=== PATIENT | male | born 1985 | race Caucasian/White ===

== ENCOUNTER 2024-01-30 08:07 | Outpatient (REF) | payer MEDICAID, SELFPAY | END 2024-01-30 08:08 | disposition home or self-care (01) | LOC: HO.HOSX 08:07 | DX: M25.532 Pain in left wrist (principal); G56.02 Carpal tunnel syndrome, left upper limb; G56.22 Lesion of ulnar nerve, left upper limb | CPT/HCPCS: 73110; 99212 ==

== ENCOUNTER 2024-01-30 08:25 | Outpatient (AMB) | payer MEDICAID, SELFPAY ==
--- NOTE | 2024-01-30 08:38 | A.OFFVIS_ITS ---
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 Patient reports his pain has been present for a while that has been recently getting worse. He states having an old wrist fracture. His pain is located in his wrist and radiates up to his shoulder. He has numbness and tinging in both of his hands as well as cold sensation in his left hand thumb and index finger. He had a nerve conduction study done last year. 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 but acutely worsening over the last few months. The patient states that he has constant numbness and tingling in the left small and ring fingers, as well as intermittent numbness and tingling in the other fingers of the left hand. The patient states that this tingling from the small finger occasionally radiates all the way up to the elbow. Patient also states that he has pain that radiates from his neck and shoulder all the way down his arm. Patient did previously have an EMG done that revealed mild carpal and cubital tunnel syndromes in the left. Patient would like to explore surgical intervention at this time. Of note, the patient states that he did have a surgery in his elbow when he was 9 years old that ?went wrong?, and he states that the bones healed incorrectly. No other acute complaints or concerns at this time. [facility] Surgical History (Updated 01/30/24 @ 08:46 by TAYLOR Meza) History of right nephrectomy Social History (Updated 01/30/24 @ 08:46 by TAYLOR Meza) Patient Tobacco Use Status: Never used Tobacco Current occupational status: employed Current occupation: construction, left hand dominant Review of Systems Const All systems reviewed & are unremarkable except as noted in HPI and below Physical Exam Vital Signs: BMI result Body Mass Index 28.9 Extrem Other: Neuro: Decreased sensation in the ulnar nerve distribution of the left hand. Normal sensation to all other digits in the left hand today. Normal sensation in the tips of all digits of the right hand today. No thenar or intrinsic wasting. Good APB muscle firing and good finger cross. Vascular: Capillary refill brisk. ROM: Patient can make a fist and extend all their digits. Skin: No lacerations or abrasions noted. General: No ecchymosis. No erythema or evidence of infection. Results Reviewed Results Reviewed: Patient presents copy of EMG and nerve conduction study on his 's phone EMG demonstrates mild carpal tunnel syndrome and mild cubital tunnel syndrome on the left Performed by Dr. Padron Assessment & Plan Assessment & Plan (1) Carpal tunnel syndrome, left: Code(s): G56.02 - Carpal tunnel syndrome, left upper limb Category: Medical (2) Cubital tunnel syndrome on left: Code(s): G56.22 - Lesion of ulnar nerve, left upper limb Category: Medical Plan 1. Carpal tunnel syndrome, left Symptoms intermittent, daily, worse at night 2. Cubital tunnel syndrome, left Symptoms constant, daily, worse at night I educated the patient about the condition. I discussed both operative and nonoperative treatment options. The patient would like to proceed with surgery. Patient is educated that due to the fact that he has dense numbness in the ulnar nerve distribution of the left hand, there is an increased risk that he does not get normal sensation back after surgery. Patient is informed that we would still perform surgery to alleviate his tingling, discomfort, and to prevent wasting of the intrinsic muscles of the left hand. The risks and benefits of operative treatment were discussed with the patient and the patient wishes to proceed with surgery. These risks include, but are not limited to, risk of damage to blood vessels, nerves, tendons, infection, recurrence, incomplete relief of preoperative symptoms, persistent pain, possible need for further surgery, and the risks associated with regional blocks and/or anesthesia. Plan is to take the patient to the operating room at some point in the next few weeks for the following procedures: 1. Left Cubital tunnel release under general anesthesia 2. Left Carpal tunnel release under general anesthesia All of the preoperative paperwork including the consent was discussed today. All of the patient's questions were answered in the clinic today. The patient understands that they will be in contact with our surgical endoscopist to discuss scheduling their procedure. Patient denies diabetes, blood thinners, asthma, heart issues, lung issues, kidney issues, or current smoking. Patient does take meloxicam p.r.n., it was advised he should discontinue use of this for 4-5 days prior to surgery. Patient was amenable to this plan Orders: Orders XR wrist LT w scaphoid Today M25.532 - Pain in left wrist Coding Level of Care Code New Pt Level 4 (87325) Diagnoses Carpal tunnel syndrome, left G56.02 Cubital tunnel syndrome on left G56.22
[2024-01-30 09:02] VITALS: BMI 28.9
== END 2024-01-30 09:32 | disposition home or self-care (01) ==
PROVIDERS: PCP Nurse Practitioner Family
DX: G56.02 Carpal tunnel syndrome, left upper limb (principal); G56.22 Lesion of ulnar nerve, left upper limb
CPT/HCPCS: 99204

== ENCOUNTER 2024-03-19 08:56 | Outpatient (AMB) | payer MEDICAID, SELFPAY ==
[2024-03-19 08:59] VITALS: BMI 28.9
--- NOTE | 2024-03-19 08:59 | A.OFFVIS_ITS ---
Vital Signs 03/19/24 08:59 Height 5 ft 9 in Weight 196 lb BMI 28.9 Intake Visit Reasons: Pre-Lt Cubital, CTR 03/28/24 Intake Note: Mehdi is a 38 year old, Ukranian speaking, left hand dominant male who presents today pre-operatively to discuss left cubital tunnel and carpal tunnel release scheduled for 03/28/[address] Boateng. Consents reviewed and signed in office today. Severity Of Illness Coordinator Name: Lucia [id number] Allergies Penicillins Allergy (Verified 03/19/24 09:08) rash HPI HPI Pre-Lt Cubital, CTR 03/28/24: Details: Mehdi is a 38 year old left hand dominant Slovak speaking man who presents to discuss his left carpal & cubital tunnel syndrome. He complains of numbness in all digits of his left hand for several years now. Symptoms constant in his small finger, and intermittent, but daily, in his thumb, index, and middle fingers. He denies any locking or catching. He works in construction. [facility] Surgical History History of right nephrectomy Social History (Updated 01/30/24 @ 08:46 by Libia Marquez [facility]) Patient Tobacco Use Status: Never used Tobacco Current occupational status: employed Current occupation: construction, left hand dominant Review of Systems Const All systems reviewed & are unremarkable except as noted in HPI and below Physical Exam Vital Signs: BMI result Body Mass Index 28.9 Const General: cooperative, healthy appearing and no acute distress Orientation/consciousness: patient oriented x3 HEENT Head: Yes normocephalic and Yes atraumatic Eyes EOM: EOMs intact bilaterally Resp Effort & Inspection: normal respiratory effort and able to speak in complete sentences Cardio Jugular venous distension: no JVD Skin General skin exam: turgor normal Rashes: no rashes Neuro General: patient oriented x3 Extrem Other: Evaluation of Left Upper Extremity: The patient is alert, oriented, and in no acute distress Neuro: Normal sensation in the median nerve distribution. Dense numbness in the ulnar nerve distribution No thenar or intrinsic wasting Good APB muscle belly firing and good finger cross Vascular: Cap refill brisk ROM: He can make a fist and extend all his digits No locking or catching Skin: No lacerations or abrasions. General: No Ecchymosis. No Erythema or evidence of infection. Nerve Conduction Study: 1. Mild left median neuropathy across the carpal tunnel 2. Mild left ulnar neuropathy across the cubital tunnel Performed by Dr. Padron 06/13/23 *Please see scanned report for more details* Psych Appearance: grossly normal Affect: normal affect Attitude: cooperative Assessment & Plan Assessment & Plan (1) Cubital tunnel syndrome on left: Code(s): G56.22 - Lesion of ulnar nerve, left upper limb Category: Medical (2) Carpal tunnel syndrome, left: Code(s): G56.02 - Carpal tunnel syndrome, left upper limb Category: Medical Plan Assessment & Plan: 1. Left cubital tunnel syndrome, mild With dense numbness 2. Left carpal tunnel syndrome, mild Symptoms intermittent, but daily, worse at night I educated him about this condition I discussed operative and non-operative treatment options The patient would like to proceed with surgery The risks and benefits of operative treatment were discussed with the patient and the patient wishes to proceed with surgery. These risks include, but are not limited to risk of damage to blood vessels, nerves, tendons, infection, recurrence, incomplete relief of preoperative symptoms, persistent pain, possible need for further surgery and the risks associated with regional blocks and anesthesia. The plan is to take the patient to the operating room sometime on 03/28/24 for the following procedures: 1. Left cubital tunnel release, under general 2. Left carpal tunnel release, under general All of the preoperative paperwork including the consent was reviewed today. All the patient's questions were answered. The patient understands that they will be contacted by our cloth piecer soon to schedule this procedure He denies Diabetes, blood thinners, asthma, heart, lung issues He has a Hx of a right nephrectomy Scribed for Eusebia Boateng MD by Mehul Dial director of medical services, on 03/19/24 at 9:25 AM, EST. Coding Level of Care Code Est Pt Level 4 (48778) Diagnoses Cubital tunnel syndrome on left G56. Carpal tunnel syndrome, left G56.02
== END 2024-03-19 09:51 | disposition home or self-care (01) ==
PROVIDERS: PCP Nurse Practitioner Family; Visit Provider Orthopaedic Surgery
DX: G56.22 Lesion of ulnar nerve, left upper limb (principal); G56.02 Carpal tunnel syndrome, left upper limb
CPT/HCPCS: 99214

== ENCOUNTER → 2024-03-19 08:56 | Outpatient (BNVA) | payer MEDICAID, SELFPAY | PROVIDERS: PCP Nurse Practitioner Family; Visit Provider Orthopaedic Surgery | DX: G56.22 Lesion of ulnar nerve, left upper limb (principal); G56.02 Carpal tunnel syndrome, left upper limb | CPT/HCPCS: 99212 ==

== ENCOUNTER 2024-03-28 07:04 | Day surgery (SDC) | payer MEDICAID, SELFPAY ==
[2024-03-26 08:33] VITALS: BMI 28.9
[2024-03-28] VITALS (9 sets, daily range): BP systolic 110–126; BP diastolic 57–73; PULSE 79–88; RESP 16; TEMP 36.2–36.3; O2SAT 94–98; BMI 25.7
--- NOTE | 2024-03-28 07:52 | P.CONAN_ITS ---
HPI - Anesthesia Eval Consult details Narrative: cubital and carpal tunnel release PMFSH Active Problems Active Problems: All Active Problems Cubital tunnel syndrome on left (Acute) Carpal tunnel syndrome, left (Acute) Family History Family history of problems with anesthesia: No Surgical History Surgical History History of right nephrectomy History of Problems with Anesthesia: No Social History Social History Are you a primary personal care service provider to a significant other at home: No Do you presently have visiting nurse or other home services: No Patient Tobacco Use Status: Never used Tobacco Use of substances other than those prescribed or required for medical reasons: No Have you been hit, kicked, punched, or otherwise hurt by someone within the past year? If so, by whom?: No Are you DNR?: No Advance Directives: No Advance Directives Information Provided: Yes Recently lost weight without trying: No Nutrition Risks: No Nutritional Risk Poor oral hygiene: No Current occupational status: employed Current occupation: construction, left hand dominant Meds Allergies Allergy/AdvReac Type Severity Reaction Status Date / Time Penicillins Allergy rash Verified 03/19/24 09:08 Home Medications ?Medication ?Instructions ?Recorded ?Confirmed ?Last Taken ?Type amlodipine 5 mg-valsartan 160 mg 1 tab PO DAILY 01/30/24 Unknown History tablet omeprazole 20 mg capsule,delayed 20 mg PO DAILY 01/30/24 Unknown History release amlodipine 5 mg tablet 5 mg PO BID 03/19/24 Unknown History gabapentin 300 mg capsule 300 mg PO BID 03/27/24 03/27/24 Unknown History ramipril 10 mg capsule 10 mg PO DAILY 03/27/24 Unknown History Exam Height,Weight and Vital Signs: Height 5 ft 9 in Weight 78.925 kg Airway Mallampati Class: II TM Dist: >3cm Neck ROM: Full Heart: rrr Lungs: cta Assessment and Plan Assessment Anesthesia Assessment: Anesthesia Plan Discussed Final Anesthetic Review Family History of Problems with Anesthesia: No History of Problems with Anesthesia: No NPO: Yes ASA Class: III Final Preanesthetic Review: No Changes in Pt Med Stat, Meds/Allgs Chart Reviewed, Consent Obtained/Reviewed and Anes Risks/Benef Reviewed Patient Risk: Intermediate Procedure Risk: Intermediate Anesthetic Plan Anesthetic Plan: GA Disposition: Standard PACU
--- NOTE | 2024-03-28 07:54 | HO.ANESPROP2 ---
HPI - Anesthesia Eval Consult details Narrative: carpal and cubita tunnel PMFSH Active Problems Active Problems: All Active Problems (Updated 01/30/24 @ 09:38 by LON Alaniz) Cubital tunnel syndrome on left (Acute) Carpal tunnel syndrome, left (Acute) Family History Family history of problems with anesthesia: No Surgical History Surgical History History of right nephrectomy History of Problems with Anesthesia: No Social History Social History Are you a primary healthcare account manager to a significant other at home: No Do you presently have visiting nurse or other home services: No Patient Tobacco Use Status: Never used Tobacco Use of substances other than those prescribed or required for medical reasons: No Have you been hit, kicked, punched, or otherwise hurt by someone within the past year? If so, by whom?: No Are you DNR?: No Advance Directives: No Advance Directives Information Provided: Yes Recently lost weight without trying: No Nutrition Risks: No Nutritional Risk Poor oral hygiene: No Current occupational status: employed Current occupation: construction, left hand dominant Meds Allergies Allergy/AdvReac Type Severity Reaction Status Date / Time Penicillins Allergy rash Verified 03/19/24 09:08 Active Medications: Current Medications Fentanyl (Fentanyl Citrate/Pf 100 Mcg/2 Ml Vial) 25 mcg IVPUSH Q5M PRN PRN Reason: Pain, Moderate to Severe (Pain Scale 4-10) Stop: 03/28/24 13:53 Naloxone HCl (Naloxone Hcl 0.4 Mg/Ml Vial) 0.04 mg IVPUSH Q5M PRN PRN Reason: Excessive sedation or RR < 8 Ondansetron HCl (Ondansetron Hcl 4 Mg/2 Ml Vial) 4 mg IVPUSH ONCE PRN PRN Reason: Nausea and Vomiting Stop: 03/28/24 13:53 Home Medications ?Medication ?Instructions ?Recorded ?Confirmed ?Last Taken ?Type amlodipine 5 mg-valsartan 160 mg 1 tab PO DAILY 01/30/24 Unknown History tablet omeprazole 20 mg capsule,delayed 20 mg PO DAILY 01/30/24 Unknown History release amlodipine 5 mg tablet 5 mg PO BID 03/19/24 Unknown History gabapentin 300 mg capsule 300 mg PO BID 03/27/24 03/27/24 Unknown History ramipril 10 mg capsule 10 mg PO DAILY 03/27/24 Unknown History Exam Height,Weight and Vital Signs: Height 5 ft 9 in Weight 78.925 kg Airway Mallampati Class: II TM Dist: >3cm Neck ROM: Full Heart: rrr Lungs: cta Assessment and Plan Assessment Anesthesia Assessment: Anesthesia Plan Discussed Final Anesthetic Review Family History of Problems with Anesthesia: No History of Problems with Anesthesia: No NPO: Yes ASA Class: III Final Preanesthetic Review: No Changes in Pt Med Stat, Meds/Allgs Chart Reviewed, Consent Obtained/Reviewed and Anes Risks/Benef Reviewed Patient Risk: Intermediate Procedure Risk: Intermediate Anesthetic Plan Anesthetic Plan: GA Disposition: Standard PACU
--- NOTE | 2024-03-28 08:05 | P.OP_ITS ---
Operative Note Operative Note Date of Service: 03/28/24 Narrative: Operative Note Narrative: Preop diagnosis: 1. Left Cubital tunnel syndrome 2. Left carpal tunnel syndrome Postop diagnosis: Same Procedure: 1. Left Cubital Tunnel Release 2. Left carpal tunnel release Surgeon: Eusebia Boateng MD Small Parts Shaper Operator: Ramu FORREST Anesthesia: General Anesthesia Findings: Anconeus epitrochlearis directly over the ulnar nerve at the cubital tunnel Implants: none Tourniquet time: 49 minutes EBL: 5.0 ml Specimen: none Drains: None Complications: None Disposition: Brought to the recovery room in stable condition Plan: Follow-up in 10-14 days for wound check, and suture removal Indications: The patient is 38 years old with left cubital tunnel syndrome and left carpal tunnel syndrome . The risks and benefits of operative treatment, including but not limited to risk of damage to blood vessels, nerves, tendons, infection, recurrence, persistent pain or numbness, incomplete resolution of preoperative symptoms, or need for further surgery were discussed with the patient and they wished to proceed with surgery. Procedure: Once consent was obtained patient was brought back to the operating suite and placed in the operating table in a supine position. Perioperative antibiotics and anesthesia was administered by the anesthesia team. The limb was prepped and draped in a standard surgical fashion, and a sterile tourniquet applied to the proximal aspect of the left upper extremity. The limb was elevated exsanguinated with Esmarch bandage and the tourniquet inflated to 250 mm of mercury for a total tourniquet time of 49 minutes. Once assured that we had a good block, a 2.0 cm longitudinal incision was made centered over the left carpal tunnel. The incision was made through the skin to the subcutaneous tissues using a #15 blade. Dissection was made down to the level of the transverse carpal ligament with care being taken to protect the palmar cutaneous nerve. Once the transverse carpal ligament was clearly visuali zed, a longitudinal incision was made in the transverse carpal ligament 1st using a #15 blade, then using tenotomy scissors under direct visualization. Care was taken to look for and protect the motor branch of the median nerve when seen in this area. Once satisfied with our carpal tunnel release the wound was irrigated with normal saline. Skin edges were reapproximated with some 4-0 Prolene suture material, and the wound was infiltrated with some 1% lidocaine with epinephrine for postop pain control. A 6 cm gently curved but longitudinally oriented incision was made centered over the cubital tunnel of the left upper extremity. Incision was made through the skin to the subcutaneous tissues using a # 15 Blade. I then dissected down to the level of the medial epicondyle and the cubital tunnel using tenotomy scissors. Care was taken to protect the medial antebrachial cutaneous nerve. The ulnar nerve was identified just posterior to the medial intermuscular septum. The patient also had a healthy sized anconeus epitrochlearis sitting right over the ulnar nerve as it passed through the cubital tunnel. The ulnar nerve was released in a proximal to distal direction using tenotomy in iris scissors while directly visualizing and protecting the ulnar nerve. The anconeus epitrochlearis was also split, releasing it over the cubital tunnel. Mild Thickening and fibrosis was appreciated about the ulnar nerve as it passed through the cubital tunnel. The ulnar nerve was assessed as I passed the elbow through full flexion and extension and was found to remain stable within its g roove. At this point the tourniquet was deflated and hemostasis obtained with a brief period of local pressure and bipolar electrocautery. The wound was copiously irrigated with normal saline. The subcutaneous layer was closed with 4-0 Vicryl suture, and the skin edges were reapproximated with a running 4-0 Monocryl subcuticular closure. Steri-Strips and Mastisol were applied.. The wounds were infiltrated with some 1% lidocaine with epinephrine for postop pain control and sterile dressings and a posterior splint was applied. The patient appears to have tolerated the procedure well and with no complications. All digits were well vascularized at the conclusion of the case.
--- NOTE | 2024-03-28 08:11 | MHC.SHP ---
Pre-Procedural Eval Section A - 24 Hr Update-Section A only Date of Service: 03/28/24 The patient is an INPATIENT: No Changes since office visit: No Cold of Flu in the past 2 weeks, No New Medical Problems, No Changes in Medication and No Patient answered all questions The patient has been examined within 24 hours of the surgical procedure. The History & Physical has been completed within 30 days and I have reviewed it.: Yes Section B - Complete if H&P > 30 days Chief Complaint: Carpal tunnel syndrome, left cubital tunnel Allergies: Allergies Allergy/AdvReac Type Severity Reaction Status Date / Time Penicillins Allergy rash Verified 03/19/24 09:08 Plan I have reviewed the history and physical and performed a pertinent physical examination on my patient. No changes have occurred unless specified. Time Spent With Patient Time: Total time managing care of this patient today ____ minutes.
[2024-03-28] MEDS: Lactated Ringers 1,000 ML 80 ML IVCONT (08:26)
[2024-03-28] MEDS: ondansetron HCL 4 MG/2 ML VIAL IVPUSH (13:02)
== END 2024-03-28 14:01 | disposition home or self-care (01) ==
PROVIDERS: PCP Nurse Practitioner Family; Visit Provider Orthopaedic Surgery
PROC: (CPT 64718; principal; 2024-03-28 09:30)
PROC: (CPT 64721; 2024-03-28 09:30)
DX: G56.02 Carpal tunnel syndrome, left upper limb (principal); G56.22 Lesion of ulnar nerve, left upper limb; R20.0 Anesthesia of skin; M25.822 Other specified joint disorders, left elbow; Z90.5 Acquired absence of kidney; Z79.899 Other long term (current) drug therapy; Z88.0 Allergy status to penicillin
CPT/HCPCS: 64721; 64718; J0131; J0690; J1100; J2003; J2004; J2371; J2405; J2704; J3010

== ENCOUNTER → 2024-03-28 07:04 | Outpatient (BNV) | payer MEDICAID, SELFPAY | PROVIDERS: PCP Nurse Practitioner Family; Visit Provider Orthopaedic Surgery | DX: G56.02 Carpal tunnel syndrome, left upper limb (principal); G56.22 Lesion of ulnar nerve, left upper limb | CPT/HCPCS: 64718; 64721 ==

== ENCOUNTER 2024-04-09 09:16 | Outpatient (AMB) | payer MEDICAID, SELFPAY ==
--- NOTE | 2024-04-09 09:37 | MHC.OFFVIS ---
Intake Visit Reasons: PO Lt Cubital, Lt CTR 03/28/24 Intake Note: Mehdi 38 yr old [place] speaker male present today for his PO visit for his left Cubital and CTR 03/28/[address] Boateng. STates symptoms have resolved just has cold feeling in his hand. Sutures removed and steri strips applied. Career Transition Specialist Required: Yes Career Transition Specialist Services: Career Transition Specialist Present ([id number] Madhu) Career Transition Specialist Name: Aton Allergies Penicillins Allergy (Verified 04/09/24 09:51) rash HPI HPI PO Lt Cubital, Lt CTR 03/28/24: Details: The patient is a 38-year-old left-hand dominant [place] speaking man who is status post left carpal tunnel release and left cubital tunnel release with wy on 03/28/2024. He says he is doing very well and no longer has any numbness and tingling in his left hand. He does complain of numbness and tingling in the right hand that bothers him more now. The numbness is mostly in his right small and ring fingers. 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 He is seen today with his [facility] Surgical History History of right nephrectomy Social History Are you a primary manager medicare marketing to a significant other at home: No Do you presently have visiting nurse or other home services: No Patient Tobacco Use Status: Never used Tobacco Current occupational status: employed Current occupation: construction, left hand dominant Physical Exam Extrem Other: The patient was alert oriented and in no acute distress. His surgical incisions are healing well with no erythema drainage or evidence of infection. Sutures were removed and Steri-Strips applied. Median ulnar radial nerve motor and sensory were all grossly intact today. Normal sensation to the tips of all digits including the small and ring fingers, which is an improvement. He can make a fist and extend all of his digits. He can actively flex and extend it his elbow. He does demonstrate that he is now having numbness and tingling in his right small and ring fingers. This is actually more bothersome than the left side now, and he would like to be seen for the right side. Assessment & Plan Assessment & Plan (1) Numbness and tingling in right hand: Code(s): R20.0 - Anesthesia of skin; R20.2 - Paresthesia of skin Category: Medical Plan Assessment & Plan: 1. Left cubital tunnel syndrome, status post cubital tunnel release Date of surgery 03/28/2024 Preoperatively: With dense numbness Now with normal sensation 2. Left carpal tunnel syndrome, status post carpal tunnel release Date of surgery 03/28/2024 Preoperatively: Symptoms intermittent, but daily, worse at night Now with normal sensation I educated the patient about the postoperative course He appears to be doing very well postoperatively and is very pleased with the improvement in his symptoms. I talked to him about activity modification. We are giving him a note returning him to work in 2 weeks. He will be returning to work on light duty with a 10 lb weight limit which will be in place for 4 weeks. Six weeks from now he can return to full duty. 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 3. Right hand numbness and tingling Mostly in the right small and ring fingers I am ordering a nerve conduction study. He will follow up with me in 3 months to review this study, as we want to give him some time to allow the left side to heal. Coding Level of Care Code Est Pt Level 3 (25868) Diagnoses Numbness and tingling in right hand R20.0; R20.2
== END 2024-04-09 10:09 | disposition home or self-care (01) ==
PROVIDERS: PCP Nurse Practitioner Family; Visit Provider Orthopaedic Surgery
DX: G56.22 Lesion of ulnar nerve, left upper limb (principal); G56.02 Carpal tunnel syndrome, left upper limb; R20.0 Anesthesia of skin; R20.2 Paresthesia of skin
CPT/HCPCS: 99024

== ENCOUNTER → 2024-04-09 09:16 | Outpatient (BNVA) | payer MEDICAID, SELFPAY | PROVIDERS: PCP Nurse Practitioner Family; Visit Provider Orthopaedic Surgery | DX: G56.22 Lesion of ulnar nerve, left upper limb (principal); G56.02 Carpal tunnel syndrome, left upper limb; R20.0 Anesthesia of skin; R20.2 Paresthesia of skin; Z48.02 Encounter for removal of sutures | CPT/HCPCS: 99212 ==

== ENCOUNTER 2024-05-09 14:04 | Outpatient (REF) | payer MEDICAID, SELFPAY ==
--- NOTE | 2024-05-09 14:08 | EMG_ITS ---
Chief complaint: At least 2 years of tingling on right 4th and 5th digits. History of left CTR and cubital tunnel surgery last March 2024. They said he had an EMG done but results are not available for my review. Reason for referral: Evaluate for ulnar neuropathy Referred by: Dr. Boateng Procedure done: Left upper extremity NCS/EMG Precautions and/or limitations: None Bengali speaking, translation services use. The limb temperature was monitored continuously and remained between 32-36 degrees C during the performance of the NCS. Ulnar motor NCS was performed with moderate elbow flexion between 70-90 degrees, with across-elbow distance of 10 cm. Nerve Conduction Studies Anti Sensory Summary Table ?Stim Site NR Onset (ms) Norm Onset (ms) Peak (ms) Norm Peak (ms) O-P Amp (?V) Norm O-P Amp Site1 Site2 Delta-0 (ms) Dist (cm) Ramirez (m/s) Norm Ramirez (m/s) Right Median Anti Sensory (2nd Digit) Wrist ? 2.7 3.3 <3.6 28.3 >10 Wrist 2nd Digit 2.7 14.0 52 Right Radial Anti Sensory (Thumb) Forearm ? 1.5 2.1 <3.1 17.1 Forearm Thumb 1.5 0.0 Right Ulnar Anti Sensory (5th Digit) Wrist ? 2.3 3.0 <3.7 22.0 >15.0 Wrist 5th Digit 2.3 14.0 61 Motor Summary Table ?Stim Site NR Onset (ms) Norm Onset (ms) O-P Amp (mV) Norm O-P Amp iAmp (mV) Amp (1st) (%) Site1 Site2 Delta-0 (ms) Dist (cm) Ramirez (m/s) Norm Ramirez (m/s) Right Median Motor (Abd Poll Brev) Wrist ? 3.4 <3.9 11.8 >4.5 13.4 100.0 Elbow Wrist 3.9 21.5 55 >45 Elbow ? 7.3 10.3 11.7 87.3 Right Ulnar Motor (Abd Dig Minimi) Wrist ? 3.0 <3.0 11.5 >5 13.8 100.0 B Elbow Wrist 3.4 21.0 62 >45 B Elbow ? 6.4 11.3 13.8 98.3 A Elbow B Elbow 1.0 10.0 100 >45 A Elbow ? 7.4 11.1 13.6 96.5 EMG ?Side Muscle Nerve Root Ins Act Fibs Psw Amp Dur Poly Recrt Int Pat Comment Right 1stDorInt Ulnar C8-T1 Nml Nml Nml Nml Nml 0 Nml Complete Right Biceps Musculocut C5-6 Nml Nml Nml Nml Nml 0 Nml Complete Right Triceps Radial C6-7-8 Nml Nml Nml Nml Nml 0 Nml Complete Right Deltoid Axillary C5-6 Nml Nml Nml Nml Nml 0 Nml Complete Right FlexCarpiUln Ulnar C8,T1 Nml Nml Nml Nml Nml 0 Nml Complete FINDINGS: All motor and sensory nerves tested showed normal latencies, amplitudes and conduction velocities. Concentric needle EMG was performed in selected muscles of the left upper extremity. Study did not reveal signs of electric abnormalities as shown in the table above. IMPRESSION: 1. This is a normal study. 2. There is no electrodiagnostic evidence for median neuropathy, ulnar neuropathy, brachial plexopathy, or cervical radiculopathy. CLINICAL COMMENT: Normal test today. Consider repeating test in 6 months if symptoms persist. Thank you for your kind referral. Candy Rousseau MD, GALILEO Board Certified, [place] Board of Physical Medicine and Rehabilitation (ABPMR) Board Certified, [place] Board of Electrodiagnostic Medicine (ABEM) CODIN [id number] [facility]
== END 2024-05-09 14:05 | disposition home or self-care (01) ==
LOC: HO.NEURO 14:04
PROVIDERS: PCP Nurse Practitioner Family; Visit Provider Orthopaedic Surgery
DX: R20.0 Anesthesia of skin (principal); R20.2 Paresthesia of skin
CPT/HCPCS: 95886; 95909

== ENCOUNTER → 2024-05-09 14:08 | Outpatient (BNV) | payer MEDICAID, SELFPAY | PROVIDERS: PCP Nurse Practitioner Family; Visit Provider Physical Medicine & Rehabilitation | DX: R20.0 Anesthesia of skin (principal); R20.2 Paresthesia of skin | CPT/HCPCS: 95886; 95909 ==

== ENCOUNTER 2024-07-10 11:23 | Outpatient (AMB) | payer MEDICAID, SELFPAY ==
--- NOTE | 2024-07-10 11:39 | MHC.OFFVIS ---
Intake Visit Reasons: New prob- Right UE Numbness Intake Note: Mehdi is a 38 year old male who presents today for an EMG review of right UE. Patient was last seen with Dr. Boateng and an EMG was ordered. Patient reports that he continues to have pain in his wrist area. Food Safety Director Name: anca [id number] Allergies Penicillins Allergy (Verified 07/10/24 11:40) rash HPI HPI New prob- Right UE Numbness: Details: Mehdi is a 38 year old male who presents today for an EMG review of right UE. Patient was last seen with Dr. Boateng and an EMG was ordered. Patient reports that he continues to have pain in his wrist area. [facility] Surgical History History of right nephrectomy Social History Are you a primary career coordinator to a significant other at home: No Do you presently have visiting nurse or other home services: No Patient Tobacco Use Status: Never used Tobacco Current occupational status: employed Current occupation: construction, left hand dominant Physical Exam Extrem Other: The patient was alert oriented and in no acute distress. His surgical incisions are well healed with no erythema drainage or evidence of infection. Median ulnar radial nerve motor and sensory were all grossly intact today. Normal sensation to the tips of all digits including the small and ring fingers, which is an improvement. Normal sensation of the tips of all digits of the right hand in the office today He can make a fist and extend all of his digits. He can actively flex and extend it his elbow. Results Reviewed Results Reviewed: IMPRESSION: 1. This is a normal study. 2. There is no electrodiagnostic evidence for median neuropathy, ulnar neuropathy, brachial plexopathy, or cervical radiculopathy. CLINICAL COMMENT: Normal test today. Consider repeating test in 6 months if symptoms persist. Thank you for your kind referral. Candy Rousseau MD, GALILEO Board Certified, [place] Board Assessment & Plan Assessment & Plan (1) Stiffness of left hand joint: Code(s): M25.642 - Stiffness of left hand, not elsewhere classified Category: Medical (2) Numbness and tingling in right hand: Code(s): R20.0 - Anesthesia of skin; R20.2 - Paresthesia of skin Category: Medical Plan 1. Numbness and tingling of right hand numb 2. Stiffness of left hand Patient is educated about these conditions Patient is educated about the typical recovery course At this time, patient was informed that there is no surgery indicated as he has a negative EMG and nerve conduction study Patient is educated that if he continues to have numbness and tingling 6 months for now, he should call us for repeat assessment and potential repeat EMG Patient was amenable to this plan Patient was also referred to occupational therapy for range of motion and strengthening of the left hand Patient was amenable to this plan Follow-up as needed with any acute concerns Orders: Orders OT Evaluation and Treatment Today M25.642 - Stiffness of left hand, not elsewhere classified Coding Level of Care Code Est Pt Level 3 (11142) Diagnoses Stiffness of left hand joint M25.642 Numbness and tingling in right hand R20.0; R20.2
== END 2024-07-10 11:51 | disposition home or self-care (01) ==
PROVIDERS: PCP Nurse Practitioner Family
DX: M25.642 Stiffness of left hand, not elsewhere classified (principal); R20.0 Anesthesia of skin; R20.2 Paresthesia of skin
CPT/HCPCS: 99213

== ENCOUNTER → 2024-07-10 11:23 | Outpatient (BNVA) | payer MEDICAID, SELFPAY | PROVIDERS: PCP Nurse Practitioner Family; Visit Provider Orthopaedic Surgery | DX: M25.642 Stiffness of left hand, not elsewhere classified (principal); R20.0 Anesthesia of skin; R20.2 Paresthesia of skin | CPT/HCPCS: 99212 ==

== ENCOUNTER 2024-07-18 08:21 | Outpatient (REF) | payer MEDICAID, SELFPAY ==
--- NOTE | ~2024-07-18 | XR_ITS ---
EXAMINATION: XR KNEE, LEFT CLINICAL INFORMATION: M25.562 - Pain in left knee COMPARISON: None available. TECHNIQUE: Three views of the left knee. FINDINGS: No acute cortical disruption or malalignment. No lytic or blastic lesions. No suprapatellar bursa joint effusion. There is preservation of normal joint space. XR/XR knee LT 3V IMPRESSION: Normal left knee. Electronically signed by: Derick Shearer MD 07/19/2024 08:13 AM EDT
--- OUTSIDE RECORDS SUMMARY | 2024-07-19 08:32 | XMS_ITS | Encounter Summary ---
Author Organization [facility] [address] Care Team Providers Care Lockstitch Sleeve Setter Name Role Phone Jaleel, Tylor HAY Primary Care Provider [phone]- [phone] Encounter Details Date Type Department Care Team (Late st Contact Info) Description 05/27/[address] [facility] - Main Lab [address] [facility] [place] [address] Jose Angel Frazier PA [address] [place] [address] Calculus of kidney; Urinary tract [...] Urine No growth 05/28/2024 11:14 AM EST [facility] Urine Urine specimen obtained by clean catch procedure / Unknown 05/27/2024 11:45 AM EST 05/27/2024 1:16 PM EST us Jose Angel [facility] MICROBIOLOGY - GENERAL ORD ERABLES Final Result [facility] [address] [place] [address], documented in this encounter Visit Diagnoses Diagnosis Calculus of kidney Urinary tract infection, site not specified documented in this encounter Care Teams Lockstitch Sleeve Setter Relationship Specialty Start Date End Date Jacek Marmolejo NP [address] [place] [address] PCP - General Nurse Practitioner 05/27/24 documented as of this encounter
--- OUTSIDE RECORDS SUMMARY | 2024-07-19 08:32 | XMS_ITS | Encounter Summary ---
Author Organization [facility] Address [address] [place] [address] Care Team Providers Care Clothes Marker Name Role Phone Jacek Marmolejo DIRECTOR HRIS Primary Care Provider [phone] [phone] Reason for Visit * Reason Comments Blood Pressure Check Encounter Details Date Type Department Care Team ([facility] st Contact Info) Description 07/17/2024 1:00 PM EDT Office Visit [address] [phone] Kerry Martinez LPN [phone] [place] [address] BP check (Primary Dx) Social History Tobacco Use Types Packs/Day Years [...] Index - - documented in this encounter Patient Instructions * Attachments The following attachments cannot be sent through Care Everywhere. * Low Sodium Diet (German) * Diet: DASH (German) documented in this encounter Progress Notes * Kerry Martinez LPN - 07/17/2024 1:13 PM EDT Mehdi Lechuga is a 38 year old male here for initial Self-Monitoring of Blood Pressure (SMBP) visit. Patient Referred by: HARRIET Antoine Subjective: The patient reports: Hx of HTN for 5 year(s). Family history of HTN: Mother Hypertension ROS: taking medications as instructed, no medication side effects noted, no TIAs, no swelling of ankles he has the following risk factors for hypertension: family history Diet: Adherence to low salt/DASH diet: adherent most of the time Adds salt to your food? no Eats a lot of canned/pre-packaged food products? no Home BP monitoring: Patient reports checking blood pressure at home 1 times per day Home BP readings ranges: 135/90, 130/85 Medications (medications to be reconciled at time of visit): Anti-Hypertensive Medications (medications to be reconciled at time of visit): Amlodipine-Valsartan 5-320 mg QD Patient reported medication adherence: no misses Patient reports the following medication side effects: none Did you take your medication today? yes - Additional OTC medications or supplements: NONE, Corvalment prescribed in [facility] Objective: Vitals: Last 3 BP Readings: Date: BP: 07/17/2024 124/86 03/19/2024 120/80 02/19/2024 145/89 Wt Readings from Last 3 Encounters: 03/19/24 197 lb 12.8 oz (89.7 kg) 01/16/24 196 lb (88.9 kg) 04/04/23 191 lb (86.6 kg) Lab Results Component Value Date NA 138 03/19/2024 K 3.9 03/19/2024 BUN 26 (H) 03/19/2024 BUNCREAT 21 03/19/2024 CREATININE 1.25 03/19/2024 EGFR 75 03/19/2024 Physical Exam: Neuro:alert, oriented x3, affect appropriate Assessment: Diagnosis: There are no diagnoses linked to this encounter. Primary Reason for RN visit: Self-Monitoring of Blood Pressure Degree of blood pressure control: improved. Patient has verbally agreed to engage in Self-Monitoring of Blood Pressure: Yes Plan Medication changes recommended by PCP: Any other care plan recommendations: no BP Goal: 130/80 Frequency of blood pressure self-monitoring: Frequency of blood pressure self- monitorin Daily Will reach out to PCP for the following referral(s): None Follow Up: No follow-ups on file. Referrals: No diagnosis found. Goals: Goals Addressed This Visit's Progress Blood Pressure < 130/80 124/86 Hypertension: Decrease sodium intake SMBP Inventory Management Reviewed Loaner Agreement Form/Take-Home Sheet with patient; patient signed form; Nurse placed formin binder. The following items were given to the patient: BP Cuff [employer] BP Carrying Case Batteries Power Cord Device ID #: [id number] Education: Educated patient that proper conditions for taking blood pressure include sitting in a chair with feet flat on the ground for a few minutes prior to blood pressure measurement, arm resting on flat surface at heart level, elimination of background noises, no talking, empty bladder, proper environmental temperature. Factors to also consider that may affect BP include, smoking, caffeine, alcohol use, pain, and exercise. Completed blood pressure cuff fitting, blood pressure monitor education, and teachback with patientto ensure understanding. Patient MyChart Status: Active Reviewed patient plan and instructions for documenting home blood pressures via monitor memory. Patient is in for SMBP initial visit. Patient is in agreement to the program. Patient educated on monitor use and demonstrates appropriate use. Pt has been taking BP medication as prescribed. Pt is nonadherent to a low sodium diet. This nurse has educated pt on the effects sodium in the body, Increased salt consumption may provoke water retention, thus leading to increased BP. Pt educated on wayshe can begin to decrease daily sodium consumption. Pt has been provided with DASH/low sodium diet to read at home. Pt has been educated on s/sx of HTN and when to seek immediate medical attention. Ptvebalized understating. Pt has been experiencing tingling in chest takes Corvalment from [place] when having chest tingling which helps, has been going on for some time, information reported to PCP. Pt has been scheduled for SMBP f/u. documented in this encounter Miscellaneous Notes * Patient Instructions - Kerry Martinez LPN - 07/17/2024 1:39 PM EDT If you are not able to keep your appointment please call 24-48 hours before your appointment to cancel or reschedule. documented in this encounter Plan of Treatment Upcoming Encounters Date Type Department Care Team (Late st Contact Info) Description 08/06/2024 9:20 AM EDT Office Visit [facility] [address] [place] [address] Kerry Martinez LPN [phone] [place] [address] documented as of this encounter Goals Goal Patient Goal Type Associated Problems Recent Progress Patient-Stated? Author Blood Pressure < 130/80 Blood Pressure 124/86( 025 1:33 PM EDT) No Kerry Martinez LPN Hypertension: Decrease sodium intake General No Kerry Martinez LPN documented as of this encounter Visit Diagnoses Diagnosis BP check- Primary Screening for hypertension documented in this encounter Additional Health Concerns Assessment Noted Time PHQ-9 Depression Total Score: 0 05/23/19 25 10:12 AM PST documented as of this encounter Care Teams Clothes Marker Relationship Specialty Start Date End Date Jacek Marmolejo FNP [address] [place] [address] PCP - General Family Medicine, SHEET SORTER 04/03/23 documented as of this encounter
--- OUTSIDE RECORDS SUMMARY | 2024-07-19 08:32 | XMS_ITS | Encounter Summary ---
Author Organization [facility] [place] [address] Care Team Providers Care Import/Export Agent Name Role Phone Jaleel, Tylor REMEDY DEVELOPER Primary Care Provider [phone] Encounter Details Date Type Department Care Team (Late st Contact Info) Description 05/27/2024 Lab Requisition [facility] - Main Lab [address] [facility] [place] [address] Jose Angel Frazier, LON [address] [place] [address] Calculus of kidney Social History [...] AM EST) WBC 5.8 4.8 - 10.8 K/[facility] LAB HEMETOLOGY METHOD 05/27/2024 2:07 PM [facility] RBC 5.70(H) 4.50 - 5.50 M/mcL LAB HEMETOLOGY METHOD 05/27/2024 2:07 PM [facility] Hemoglobin 16.5 13.5 - 17.5 g/dL LAB HEMETOLOGY METHOD 05/27/2024 2:07 PM [facility] Hematocrit 47.6 42.0 - 54.0 % LAB HEMETOLOGY METHOD 05/27/2024 2:07 PM [facility] MCV 83.1 79.0 - 98.0 FL LAB HEMETOLOGY METHOD 05/27/2024 2:07 PM [facility] MCH 28.8 27.0 - 32.0 pcg LAB HEMETOLOGY METHOD 05/27/2024 2:07 PM [facility] MCHC 34.7 32.0 - 37.0 g/dL LAB HEMETOLOGY METHOD 05/27/2024 2:07 PM [facility] RDW 12.4 11.0 - 15.0 % LAB HEMETOLOGY METHOD 05/27/2024 2:07 PM [facility] Platelets 264 130 - 400 K/mcL LAB HEMETOLOGY METHOD 05/27/2024 2:07 PM [facility] MPV 10.9 7.0 - 11.0 FL LAB HEMETOLOGY METHOD 05/27/2024 2:07 PM [facility] NRBC 0.0 <1.0 % LAB HEMETOLOGY METHOD 05/27/2024 2:07 PM [facility] NRBC Absolute 0.00 <0.10 K/mcL LAB HEMETOLOGY METHOD 05/27/2024 2:07 PM [facility] Blood Venous blood specimen / Unknown 05/27/2024 05/27/2024 1:20 PM EST us Jose Angel FORREST LAB BLOOD ORDERABLES Final Res ult [facility] [address] [place] [address], documented in this encounter Visit Diagnoses Diagnosis Calculus of kidney documented in this encounter Care Teams Import/Export Agent Relationship Specialty Start Date End Date Jacek Marmolejo NP [address] [place] [address] PCP - General Nurse Practitioner 05/27/24 documented as of this encounter
--- OUTSIDE RECORDS SUMMARY | 2024-07-19 08:33 | XMS_ITS | Clinical Summary ---
Author Organization [facility] Address [address] [place] [address] Phone Care Team Providers Care Program Aide Name Role Phone Jacek Marmolejo NP Primary Care Provider [phone]- [phone] Allergies Active Allergy Reactions Criticality Noted Date [...] Description 06/07/2024 9:05 AM EST Anesthesia Event [facility] [place] [address] [place] [phone] Jose De Jesus Angeles MD 06/07/2024 9:00 AM EST - 06/07/2024 9:45 AM EST Surgery [facility] [place] [address] [place] [phone] Ramu Noble MD ESWL-LEFT [[id number] (CPT??)] 06/07/2024 7:18 AM EST - 06/07/2024 10:45 AM EST Hospital Encounter [facility] Main OR [address] [place] [phone] Ramu Noble MD Discharge Disposition: Home or Self Care 05/27/2024 Lab Requisition [facility] Lab [address] [place] [address] Jose Angel Frazier PA Calculus of kidney 05/27/2024 Lab Requisition [facility] Lab [address] [place] [address] Jose Angel Frazier PA Calculus [...] Procedure Name Priority Date/Time Associated Diagnosis Comments [place] LITHOTRIPSY EXTRACORPOREAL SHOCK WAVE 06/07/2024 9:05 AM EST Calculus of kidney CULTURE URINE Routine 05/27/2024 11:45 AM EST Calculus of kidney Urinary tract infection, site not specified COMPLETE BLOOD COUNT Routine 05/27/2024 12:00 AM EST Calculus of kidney from Last 3 Months Results * Culture urine (05/27/2024 11:45 AM EST) Pathologist [facility] Culture, Urine No growth 05/28/2024 11:14 AM EST [facility] Urine Urine specimen obtained by clean catch procedure / Unknown 05/27/2024 11:45 AM EST 05/27/2024 1:16 PM EST us Jose Angel FORREST LAB MICROBIOLOGY - GENERAL ORD ERABLES Final Result [facility] [address] [place] [address], [place] [phone] * (ABNORMAL) Complete blood count (05/27/2024 12:00 AM EST) Pathologist [facility] WBC 5.8 4.8 - 10.8 K/mcL LAB HEMETOLOGY METHOD 05/27/2024 2:07 PM [facility] RBC 5.70(H) 4.50 - 5.50 M/mcL LAB HEMETOLOGY METHOD 05/27/2024 2:07 PM [facility] Hemoglobin 16.5 13.5 - 17.5 g/dL LAB HEMETOLOGY METHOD 05/27/2024 2:07 PM [facility] Hematocrit 47.6 42.0 - 54.0 % LAB HEMETOLOGY METHOD 05/27/2024 2:07 PM [facility] MCV 83.1 79.0 - 98.0 FL LAB HEMETOLOGY METHOD 05/27/2024 2:07 PM [facility] MCH 28.8 27.0 - 32.0 pcg LAB HEMETOLOGY METHOD 05/27/2024 2:07 PM [facility] MCHC 34.7 32.0 - 37.0 g/dL LAB HEMETOLOGY METHOD 05/27/2024 2:07 PM EST [facility] RDW 12.4 11.0 - 15.0 % LAB HEMETOLOGY METHOD 05/27/2024 2:07 PM [facility] Platelets 264 130 - 400 K/mcL LAB HEMETOLOGY METHOD 05/27/2024 2:07 PM [facility] MPV 10.9 7.0 - 11.0 FL LAB HEMETOLOGY METHOD 05/27/2024 2:07 PM [facility] NRBC 0.0 <1.0 % LAB HEMETOLOGY METHOD 05/27/2024 2:07 PM [facility] NRBC Absolute 0.00 <0.10 K/mcL LAB HEMETOLOGY METHOD 05/27/2024 2:07 PM [facility] Blood Venous blood specimen / Unknown 05/27/2024 05/27/2024 1:20 PM EST us Jose Angel FORREST LAB BLOOD ORDERABLES Final Res ult [facility] [address] [place] [address], [place] [phone] from Last 3 Months Insurance MEDICAID - [place] Care Teams Program Aide Relationship Specialty Start Date End Date Jacek Marmolejo NP [facility] [place] [address] PCP - General Nurse Practitioner 05/27/24
--- OUTSIDE RECORDS SUMMARY | 2024-07-19 08:33 | XMS_ITS | Clinical Summary ---
Author Organization [facility] Address [address] [place] [address] Care Team Providers Care Copyright Manager Name Role Phone Jacek Marmolejo [facility] Primary Care Provider [phone] -[phone] Source Comments PLEASE NOTE, if this patient [...] 0.65 % nasal sprayIndications :Epistaxis Place 1 [place] into the nostril(s) as needed for congestion [...] Description 07/17/2024 1:00 PM EDT Office Visit [address] [phone] Kerry Martinez LPN BP check (Primary Dx) 05/23/2024 9:40 AM EST Telemedicine Visit [address] [phone] Jacek Marmolejo FNP Vasylyshyn, Oksana Essential hypertension [...] Description 08/06/2024 9:20 AM EDT Office Visit [address] [phone] Kerry Martinez LPN [phone] [place] [address] Health Maintenance Due Date Last Done Comments Anxiety Screening 1984 HIV Screening 10/31/1999 Imm-DTaP/Tdap/Td (1 - Tdap) 10/31/2003 Imm-Hepatitis B (1 of 3 - 19 + 3-dose series) 10/31/2003 [id number] ( season) 2023 Imm-Influenza (#1) 2023 Annual Preventive Care Visit 04/04/2024 04/04/2023 Lipid Screening 03/19/2025 03/19/2024, 04/04/2023 Tobacco Screening 05/23/2025 05/23/2024 Diabetes Screening 03/19/2027 03/19/2024, 1 05/20/2023, 04/04/2023, Additional history exists Hepatitis C Screening Completed 04/04/2023 Alcohol and Drug Screen Completed 05/23/2024, 01/15 Depression Annual Screen Completed 05/23/2024 Goals Goal Patient Goal Type Associated Problems Recent Progress Patient-Stated? Author Blood Pressure < 130/80 Blood Pressure 124/86( 025 1:33 PM EDT) No Kerry Martinez LPN Hypertension: Decrease sodium intake General No Kerry Martinez LPN Procedures Procedure Name Priority Date/Time Associated Diagnosis [...] period is included. 06/18/2024 3:00 AM EST [facility] DIV[employer] DIRECTOR SCAN REFERRAL Final Res ult * IMAGING SCANNED DOCUMENT (06/17/2024 3:00 AM EST) Only the most recent of2 resultswithin the time period is included. 06/17/2024 3:00 AM EST Jacek Jaleel [employer] DIVISION DIRECTOR SCAN IMAGING Final Res ult * REFERRAL TO UROLOGY (04/29/2024 3:00 AM EST) 04/29/2024 3:00 AM EST [facility] Edited Re sult - Final * HEMOGLOBIN GLYCOSYLATED A1C (03/19/2024 5:01 PM EST) HEMOGLOBIN A1C 5.4 <5.7 % of total Hgb [facility] Comment: For the purpose of screening for the presence of diabetes: <5.7% ? Consistent with the absence of diabetes 5.7-6.4% ?Consistent with increased risk for diabetes ?(prediabetes) > or =6.5% ??Consistent with diabetes This assay result is consistent with a decreased risk of diabetes. Currently, no consensus exists regarding use of hemoglobin A1c for diagnosis of diabetes in children. According to [place] Diabetes Association (ADA) guidelines, hemoglobin A1c <7.0% represents optimal control in non- diabetic patients. Different metrics may apply to specific patient populations. Standards of Medical Care in Diabetes(ADA). ?? Blood Blood / Unknown 03/19/2024 5 :01 PM EST 03/19/2024 5:01 PM EST Narrative [facility] - 03/20/2024 7:36 AM EST FASTING:NO Jacek Jaleel FNP LAB - BLOOD DRAW Edited R esult - Final [facility] [address] [place] [address], [facility] [address] [place] [phone] * (ABNORMAL) LIPID PANEL (03/19/2024 5:01 PM EST) CHOLESTEROL, TOTAL 182 <200 mg/dL [facility] HDL CHOLESTEROL 46 > OR = 40 mg/dL [facility] TRIGLYCERIDES 459(H) <150 mg/dL [facility] Comment: If a non-fasting specimen was collected, consider repeat triglyceride testing on a fasting specimen if clinically indicated. Naman et al. J. of Clin. Lipidol. 2015;9:129-169. LDL-CHOLESTEROL See Note [facility] [employer] Comment: LDL cholesterol not calculated. Triglyceride levels [...] equation in the estimation of LDL-C. Juan SS et al. FORD. 2013;310(19): 4661-6754 (http://education.Loterity/faq/EBD562) CHOL/HDLC RATIO 4.0 <5.0 (calc) [facility] NON-HDL CHOLESTEROL 136(H) <130 mg/dL (calc) [facility] Comment: For patients with diabetes plus 1 major ASCVD risk factor, treating to a non-HDL-C goal of <100 mg/dL (LDL-C of <70 mg/dL) is considered a therapeutic option. Blood Blood / Unknown 03/19/2024 5 :01 PM EST 03/19/2024 5:01 PM EST Narrative [facility] - 03/20/2024 7:36 AM EST FASTING:NO Jacek RYANP LAB - BLOOD DRAW Final Re sult [facility] [address] [place] [address], [facility] [address] [place] [phone] * HEPATITIS C AB W/RFLX HCV RNA, QT, RT PCR (04/04/2023 2:10 PM EST) HEPATITIS C ANTIBODY NON-REACT NAYELI NON-REACT NAYELI [facility] Comment: HCV antibody was non-reactive. There is no laboratory evidence of HCV infection. In most cases, no further action is required. However, if recent HCV exposure is suspected, a test for HCV RNA (test code 13744) is suggested. For additional information please refer to http://education.GoFormz.Snaptiva/faq/AFT24c0 (This link is being provided for informational/ educational purposes only.) Blood Blood / Unknown 04/04/2023 2 :10 PM EST 04/04/2023 2:12 PM EST Narrative [facility] - 04/05/2023 2:35 PM EST NON FASTING FASTING:NO us Jacek LARIOS LAB - BLOOD DRAW Edited R esult - Final [facility] [address] [address], [facility] [address] [place] [address] from Last 3 Months or Most Recently Relevant to Health Maintenance Insurance [employer] Care Teams Copyright Manager Relationship Specialty Start Date End Date Jacek Marmolejo FNP [address] [place] [address] PCP - General Family Medicine, SAP MANAGER 04/03/23
--- OUTSIDE RECORDS SUMMARY | 2024-07-19 08:33 | XMS_ITS ---
Author Organization [facility] Address [facility] [address] [place] [address] Care Team Providers Care Email Campaign Specialist Name Role Phone Jacek Marmolejo Primary Care Provider [phone] [phone] SA[facility] Program Status:Enrolled (Active) Start date:07/17/2024 Enrollment date:07/17/2024 Case Team Name Relationship Phone Kerry Martinez LPN (Responsible Staff) [phone] Continued Care and Services Coordination
== END 2024-07-18 08:22 | disposition home or self-care (01) ==
LOC: HO.HOSX 08:21
PROVIDERS: Visit Provider Orthopaedic Surgery
DX: M25.562 Pain in left knee (principal)
CPT/HCPCS: 73562; 99202

== ENCOUNTER 2024-07-18 09:22 | Outpatient (AMB) | payer MEDICAID, SELFPAY ==
[2024-07-18 09:32] VITALS: BMI 25.7
--- NOTE | 2024-07-18 09:32 | MHC.OFFVIS ---
Vital Signs 07/18/24 09:32 Height 5 ft 9 in Weight 174 lb BMI 25.7 Intake Visit Reasons: Left knee pain and giving way Intake Note: Mehdi is a 38 year old male who presents with complaints of progressively worsening left knee pain and giving way. He describes his pain as sharp and severe in nature. He states that his symptoms have gotten worse over the last 4 years in spite of continued non operative treatments. He has failed the last 6 weeks of conservative treatment which has included a home exercise program, physical therapy exercises, Tylenol, meloxicam and gabapentin. Most of the pain is along the medial aspect of the patient's knee. He states that his left knee will give out several times per day. Assistant Boys Track Coach Required: Yes Assistant Boys Track Coach Language: Indonesian Allergies Penicillins Allergy (Verified 07/18/24 09:37) rash Medication List - Last Reviewed 07/18/24 by TAYLOR Gill amlodipine-valsartan 5-320 mg 1 tab PO DAILY atorvastatin 20 mg PO BEDTIME fluticasone propionate 50 mcg/actuation intranasal gabapentin 300 mg PO BID meloxicam 7.5 mg PO DAILY omeprazole 20 mg PO DAILY REPLACED BY [facility] Surgical History History of right nephrectomy Social History Are you a primary customer care voice consultant to a significant other at home: No Do you presently have visiting nurse or other home services: No Patient Tobacco Use Status: Never used Tobacco Current occupational status: employed Current occupation: construction, left hand dominant Physical Exam Vital Signs: BMI result Body Mass Index 25.7 Const Other: Well-nourished well-developed very friendly male awake alert and oriented x3 in no acute distress Extrem Other: Bilateral lower extremity examination shows good capillary refill, no skin lesions noted, normal sensation light touch Left knee examination shows a minimal effusion, minimal crepitus with range of motion, tenderness along his medial joint line, positive Melany's test, no instability Results Reviewed Results Reviewed: Standing full weight-bearing x-rays of the patient's left knee show minimal diffuse joint space narrowing, no acute bony abnormalities Assessment & Plan Assessment & Plan (1) Tear of medial meniscus of left knee: Code(s): S83.242A - Other tear of medial meniscus, current injury, left knee, initial encounter Category: Medical Plan Mr. Lechuga presents with progressively worsening left knee pain and mechanical symptoms most likely due to a medial meniscus tear. Thus, I will send the patient for an MRI of his left knee for further evaluation. I will see him back once the MRI is completed to discuss the findings and treatment options. Feel free to call me at any time should questions regarding his orthopedic management arise. Thank you very much for asking me to see this very friendly gentleman. I spent 21 minutes in reviewing the patient's records and imaging studies, seeing the patient and documenting in the medical record. Orders: Orders XR knee LT 3V Today M25.562 - Pain in left knee MR knee LT wo con Today S83.242A - Other tear of medial meniscus, current injury, left knee, initial encounter Coding Level of Care Code New Pt Level 3 (31451) Complex EM visit Add On G2211 Diagnoses Tear of medial meniscus of left knee S83.242A
--- OUTSIDE RECORDS SUMMARY | 2024-07-18 09:53 | XMS_ITS | Encounter Summary ---
Author Organization [facility] Address [address] [place] [address] Care Team Providers Care Foot Press Operator Name Role Phone Jacek Marmolejo HARRIET Primary Care Provider [phone] Encounter Details Date Type Department Care Team (Late st Contact Info) Description 07/17/2024 1:00 PM EDT Office Visit [address] [phone] Kerry Martinez LPN [phone] [place] [address] Social History Tobacco Use Types Packs/Day Years Used Date Smoking Tobacco: Never Passive Smoke Exposure: Never Smokeless Tobacco: Never Alcohol Use Standard Drinks/Week Comments Never 0 (1 standard drink = 0.6 oz pur e alcohol) Social Connections Answer Date Recorded Connectedness 0 12/31/2023 Financial Resource Strain Answer Date R ecorded Financial Resource Strain 0 2022 Stress Answer Date Recorded Stress 0 01/10/2023 Physical Activity Answer Date Recorded Physical Activity 0 01/10/2023 Food Insecurity Answer Date Recorded Food 0 01/11/2024 Transportation Needs Answer Date Record ed Transportation 0 01/10/2023 Housing Stability Answer Date Recorded Housing 0 01/10/2023 Safety and Environment Answer Date Messi rded Safety 0 01/10/2023 Utilities Answer Date Recorded Utilities 0 01/10/2023 Employment Answer Date Recorded Stress 0 12/31/2023 Sex and Gender Information Value Date Recorded Sex Assigned at Male 01/09/2023 10:49 AM PDT Legal Sex Male 10:48 AM PDT Gender Identity Male 01/09/2023 10:49 AM PDT Sexual Orientation Straight 04/05/2023 1: 05 AM PST documented as of this encounter Last Filed Vital Signs Vital Sign Reading Time Taken Comments Blood Pressure 124/86 07/17/2024 1:33 PM EDT Pulse 86 07/17/2024 1:33 PM EDT Temperature - - Respiratory Rate - - Oxygen Saturation - - Inhaled Oxygen Concentration - - Weight - - Height - - Body Mass Index - - documented in this encounter Miscellaneous Notes * Patient Instructions - Kerry Martinez LPN - 07/17/2024 1:39 PM EDT If you are not able to keep your appointment please call 24-48 hours before your appointment to cancel or reschedule. documented in this encounter Plan of Treatment Upcoming Encounters Date Type Department Care Team (Late st Contact Info) Description 08/06/2024 9:20 AM EDT Office Visit [address] [phone] Kerry Martinez LPN [phone] [place] [address] documented as of this encounter Visit Diagnoses Not on filedocumented in this encounter Additional Health Concerns Assessment Noted Time PHQ-9 Depression Total Score: 0 05/23/19 25 10:12 AM PST documented as of this encounter Care Teams Foot Press Operator Relationship Specialty Start Date End Date Jacek Marmolejo FNP [address] [place] [id number] PCP - General Family Medicine, GAS METER REPAIRER 04/03/23 documented as of this encounter
--- OUTSIDE RECORDS SUMMARY | 2024-07-18 09:53 | XMS_ITS | Encounter Summary ---
Author Organization [facility] [place] [address] Care Team Providers Care Crane Crew Supervisor Name Role Phone Jaleel, Tylor PSYCHIATRIC SECRETARY Primary Care Provider [phone]- [phone] Encounter Details Date Type Department Care Team (Late st Contact Info) Description 05/27/2024 Lab Requisition [facility] - Main Lab [address] [facility] [place] [address] Jose Angel Frazier, LON [address] [place] [address] Calculus of kidney Social History Tobacco Use Types Packs/Day Years Used Date Smoking Tobacco: Never Assessed Sex and Gender Information Value Date Recorded Sex Assigned at Male 06/06/2024 9:31 AM EST Legal Sex Male 1:37 PM EDT Gender Identity Male 06/06/2024 9:31 AM EST Sexual Orientation Straight 06/06/2024 9: 31 AM EST documented as of this encounter Plan of Treatment Not on file documented as of this encounter Procedures Procedure Name Priority Date/Time Associated Diagnosis Comments COMPLETE BLOOD COUNT Routine 05/27/2024 12:00 AM EST Calculus of kidney documented in this encounter Results * (ABNORMAL) Complete blood count (05/27/2024 12:00 AM EST) WBC 5.8 4.8 - 10.8 K/[facility] LAB HEMETOLOGY METHOD 05/27/2024 2:07 PM [facility] RBC 5.70(H) 4.50 - 5.50 M/mcL LAB HEMETOLOGY METHOD 05/27/2024 2:07 PM [facility] Hemoglobin 16.5 13.5 - 17.5 g/dL LAB HEMETOLOGY METHOD 05/27/2024 2:07 PM [facility] Hematocrit 47.6 42.0 - 54.0 % LAB HEMETOLOGY METHOD 05/27/2024 2:07 PM [facility] MCV 83.1 79.0 - 98.0 FL LAB HEMETOLOGY METHOD 05/27/2024 2:07 PM [facility] MCH 28.8 27.0 - 32.0 pcg LAB HEMETOLOGY METHOD 05/27/2024 2:07 PM [facility] MCHC 34.7 32.0 - 37.0 g/dL LAB HEMETOLOGY METHOD 05/27/2024 2:07 PM [facility] RDW 12.4 11.0 - 15.0 % LAB HEMETOLOGY METHOD 05/27/2024 2:07 PM [facility] Platelets 264 130 - 400 K/mcL LAB HEMETOLOGY METHOD 05/27/2024 2:07 PM [facility] MPV 10.9 7.0 - 11.0 FL LAB HEMETOLOGY METHOD 05/27/2024 2:07 PM [facility] NRBC 0.0 <1.0 % LAB HEMETOLOGY METHOD 05/27/2024 2:07 PM [facility] NRBC Absolute 0.00 <0.10 K/mcL LAB HEMETOLOGY METHOD 05/27/2024 2:07 PM [facility] Blood Venous blood specimen / Unknown 05/27/2024 05/27/2024 1:20 PM EST us Jose Angel [facility] BLOOD ORDERABLES Final Res ult [facility] [address] [place] [address], documented in this encounter Visit Diagnoses Diagnosis Calculus of kidney documented in this encounter Care Teams Crane Crew Supervisor Relationship Specialty Start Date End Date Jacek Marmolejo NP [address] [place] [address] PCP - General Nurse Practitioner 05/27/24 documented as of this encounter
--- OUTSIDE RECORDS SUMMARY | 2024-07-18 09:53 | XMS_ITS | Encounter Summary ---
Author Organization [facility] [place] [address] Care Team Providers Care Manager Sterile Name Role Phone Jaleel, Tylor HAY Primary Care Provider [phone]- [phone] Encounter Details Date Type Department Care Team (Late st Contact Info) Description 05/27/2024 Lab Requisition [facility] - Main Lab [address] [facility] [place] [address] Jose Angel Frazier PA [address] [place] [address] Calculus of kidney; Urinary tract infection, site not specified Social History Tobacco Use Types Packs/Day Years [...] Procedure Name Priority Date/Time Associated Diagnosis Comments CULTURE URINE Routine 05/27/2024 11:45 AM EST Calculus of kidney Urinary tract infection, site not specified documented in this encounter Results * Culture urine (05/27/2024 11:45 AM EST) Culture, Urine No growth 05/28/2024 11:14 AM EST [facility] Urine Urine specimen obtained by clean catch procedure / Unknown 05/27/2024 11:45 AM EST 05/27/2024 1:16 PM EST us Jose Angel [facility] MICROBIOLOGY - GENERAL ORD ERABLES Final Result [facility] [address] [place] [address], documented in this encounter Visit Diagnoses Diagnosis Calculus of kidney Urinary tract infection, site not specified documented in this encounter Care Teams Manager Sterile Relationship Specialty Start Date End Date Jacek Marmolejo NP [address] [place] [address] PCP - General Nurse Practitioner 05/27/24 documented as of this encounter
--- OUTSIDE RECORDS SUMMARY | 2024-07-18 09:53 | XMS_ITS | Clinical Summary ---
Author Organization [facility] Address [address] [place] [address] Phone Care Team Providers Care Automobile Assembly Supervisor Name Role Phone Jacek Marmolejo NP Primary Care Provider [phone]- [phone] Allergies Active Allergy Reactions Criticality Noted Date Comments Penicillins Hives 05/09/2024 Medications omeprazole OTC (PriLOSEC OTC) 20 mg EC tablet Take 1 tablet (20 mg total) by mouth 1 (one) time each day. Do not crush, chew, or split. Active meloxicam (MOBIC) 7.5 mg tablet Take 1 tablet (7.5 mg total) by mouth 1 (one) time each day. INSTRUCTED TO STOP 1 WEEK PRIOR TO SX Active atorvastatin (LIPITOR) 20 mg tablet Take 1 tablet (20 mg total) by mouth at bedtime. Active gabapentin (NEURONTIN) 100 mg capsule Take 3 capsules (300 mg total) by mouth 1 (one) time each day if needed. Active amLODIPine-vals dina (EXFORGE) 10-160 mg per tablet Take 1 tablet by mouth 1 (one) time each day. Active Encounters Date Type Department Care Team Description 06/07/2024 9:05 AM EST Anesthesia Event [facility] [place] [address] [place] [phone] Jose De Jesus Angeles MD 06/07/2024 9:00 AM EST - 06/07/2024 9:[address] [facility] OR [address] [place] [phone] Ramu Noble MD ESWL-LEFT [[id number] (CPT??)] 06/07/2024 7:18 AM EST - 06/07/2024 10:45 AM EST Hospital Encounter [facility] Main OR [address] [place] [phone] Ramu Noble MD Discharge Disposition: Home or Self Care 05/27/2024 Lab Requisition [facility] Lab [address] [place] [address] Jose Angel Frazier PA Calculus of kidney 05/27/2024 Lab Requisition [facility] Lab [address] [place] [address] Jose Angel Frazier PA Calculus of kidney; Urinary tract infection, site not specified from Last 3 Months Surgical History Surgery Date Site/Laterality Comments OTHER SURGICAL HISTORY CYSTOSCOPY INSERTION / REMOV AL STENT / STONE CARPAL TUNNEL RELEASE Left NERVE RELEASE ELBOW ALSO, Medical History Medical History Date Comments Hyperlipidemia Hypertension Chronic kidney disease KIDNEY ST ONES Social History Tobacco Use Types Packs/Day Years Used Date Smoking Tobacco: Never Smokeless Tobacco: Never Tobacco Cessation:Counseling Given: Not Answered Alcohol Use Standard Drinks/Week Comments Not Currently 0 (1 standard drink = 0.6 oz pur e alcohol) Sex and Gender Information Value Date Recorded Sex Assigned at Male 06/06/2024 9:31 AM EST Legal Sex Male 1:37 PM EDT Gender Identity Male 06/06/2024 9:31 AM EST Sexual Orientation Straight 06/06/2024 9: 31 AM EST Obstetrics History Last Filed Vital Signs Vital Sign Reading Time Taken Comments Blood Pressure 140/90 06/07/2024 10:22 AM EST Pulse 67 06/07/2024 10:22 AM EST Temperature 36.7 ??C (98.1 ??F) 06/07/2024 9:43 AM ES T Respiratory Rate 14 06/07/2024 9:43 AM EST Oxygen Saturation 98% 06/07/2024 10:22 AM EST Inhaled Oxygen Concentration - - Weight 90 kg (198 lb 6.6 oz) 05/09/2024 10:00 AM EST Height 174 cm (5' 8.5 ) 05/09/2024 10:00 AM EST Body Mass Index 29.73 05/09/2024 10:00 AM EST Plan of Treatment Health Maintenance Due Date Last Done Comments DTaP,Tdap,and Td Vaccines (1 - Tdap) 10/31/2003 Hepatitis B Vaccines (1 of 3 - 19+ 3-dose series) 10/31/2003 HIV Screening 11/14/2023 Social Influencers of Health Screening 11/14/2023 COVID-19 Vaccine (1 - 2023-2 5 season) 2023 Influenza Vaccine (Season Ended) 2024 Hypertension/CHF/CAD Annual BMP Blood Test 03/19/2025 03/19/2024 Depression Screening 05/23/2025 05/23/2024 Cholesterol Screening (Lipid Panel) 03/19/2029 03/19/2024, 03/19/2024, 04/04/2023 Hepatitis C Screening Completed 04/04/2023 HIB Vaccines Aged Out No longer eligi ble based on patient's age to complete this topic HPV Vaccines Aged Out No longer eligi ble based on patient's age to complete this topic Hepatitis A Vaccines Aged Out No long er eligible based on patient's age to complete this topic IPV Vaccines Aged Out No longer eligi ble based on patient's age to complete this topic MMR Vaccines Aged Out No longer eligi ble based on patient's age to complete this topic Meningococcal ACWY Vaccine Aged Out N o longer eligible based on patient's age to complete this topic Meningococcal B Vacine Aged Out No lo nger eligible based on patient's age to complete this topic Pneumococcal Vaccine: Pediatrics (0 to 5 Years) and At-Risk Patients (6 to 64 Years) Aged Out No longer eligible b ased on patient's age to complete this topic RSV Immunization Patients Under 20 months Aged Out No longer eligible b ased on patient's age to complete this topic Varicella Vaccines Aged Out No longer eligible based on patient's age to complete this topic Procedures Procedure Name Priority Date/Time Associated Diagnosis Comments DE LITHOTRIPSY EXTRACORPOREAL SHOCK WAVE 06/07/2024 9:05 AM EST Calculus of kidney CULTURE URINE Routine 05/27/2024 11:45 AM EST Calculus of kidney Urinary tract infection, site not specified COMPLETE BLOOD COUNT Routine 05/27/2024 12:00 AM EST Calculus of kidney from Last 3 Months Results * Culture urine (05/27/2024 11:45 AM EST) Pathologist [facility] Culture, Urine No growth 05/28/2024 11:14 AM EST [facility] Urine Urine specimen obtained by clean catch procedure / Unknown 05/27/2024 11:45 AM EST 05/27/2024 1:16 PM EST us Jose Angel [facility] MICROBIOLOGY - GENERAL ORD ERABLES Final Result [facility] [address] [place] [address], [place] [phone] * (ABNORMAL) Complete blood count (05/27/2024 12:00 AM EST) Pathologist [facility] WBC 5.8 4.8 - 10.8 K/mcL LAB HEMETOLOGY METHOD 05/27/2024 2:07 PM [facility] RBC 5.70(H) 4.50 - 5.50 M/mcL LAB HEMETOLOGY METHOD 05/27/2024 2:07 PM [facility] Hemoglobin 16.5 13.5 - 17.5 g/dL LAB HEMETOLOGY METHOD 05/27/2024 2:07 PM [facility] Hematocrit 47.6 42.0 - 54.0 % LAB HEMETOLOGY METHOD 05/27/2024 2:07 PM [facility] MCV 83.1 79.0 - 98.0 FL LAB HEMETOLOGY METHOD 05/27/2024 2:07 PM [facility] MCH 28.8 27.0 - 32.0 pcg LAB HEMETOLOGY METHOD 05/27/2024 2:07 PM [facility] MCHC 34.7 32.0 - 37.0 g/dL LAB HEMETOLOGY METHOD 05/27/2024 2:07 PM EST [facility] RDW 12.4 11.0 - 15.0 % LAB HEMETOLOGY METHOD 05/27/2024 2:07 PM [facility] Platelets 264 130 - 400 K/mcL LAB HEMETOLOGY METHOD 05/27/2024 2:07 PM [facility] MPV 10.9 7.0 - 11.0 FL LAB HEMETOLOGY METHOD 05/27/2024 2:07 PM [facility] NRBC 0.0 <1.0 % LAB HEMETOLOGY METHOD 05/27/2024 2:07 PM [facility] NRBC Absolute 0.00 <0.10 K/mcL LAB HEMETOLOGY METHOD 05/27/2024 2:07 PM [facility] Blood Venous blood specimen / Unknown 05/27/2024 05/27/2024 1:20 PM EST us Jose [facility] BLOOD ORDERABLES Final Res ult [facility] [address] [place] [address], [place] [phone] from Last 3 Months Insurance MEDICAID - [place] Care Teams Automobile Assembly Supervisor Relationship Specialty Start Date End Date Jacek Marmolejo NP [facility] [place] [address] PCP - General Nurse Practitioner 05/27/24
--- OUTSIDE RECORDS SUMMARY | 2024-07-18 09:54 | XMS_ITS | Clinical Summary ---
Author Organization [facility] Address [address] [place] [address] Care Team Providers Care Financial Reporting Specialist Name Role Phone Jacek Marmolejo [facility] Primary Care Provider [phone] Source Comments PLEASE NOTE, if this patient is a minor, it may be UNLAWFUL to discuss sensitive information that is contained in these records (such as FAMILY PLANNING, MENTAL HEALTH or SUBSTANCE ABUSE) with the minor patient's parent or other person without the patient's specific authorization.[facility] Allergies Active Allergy Reactions Criticality Noted Date Comments Penicillin G Hives 03/16/2023 Medications atorvastatin (LIPITOR) 20 mg tablet Take 1 Tablet by mouth nightly at bedtime 90 Tablet 1 4 Active gabapentin (NEURONTIN) 300 mg capsuleIndicatio ns:Numbness and tingling of left hand,Chronic pain of left knee Take 1 Capsule by mouth 2 (two) times daily 180 Capsule 1 4 Active meloxicam (MOBIC) 7.5 mg tabletIndication s:Numbness and tingling of left hand,Chronic pain of left knee Take 1 Tablet by mouth once daily 90 Tablet 1 5 Active blood pressure monitorIndicatio ns:Essential hypertension Dispense one automated BP monitor, to be used daily and prn, length of need 99 years 1 Kit 1 5 Active sodium chloride (OCEAN) 0.65 % nasal sprayIndications :Epistaxis Place 1 [place] into the nostril(s) as needed for congestion 44 mL 5 5 Active amlodipine-valsa rtan (EXFORGE) 5-320 mg per tabletIndication s:Essential hypertension Take 1 Tablet by mouth once daily 90 Tablet 1 5 Active omeprazole (PRILOSEC) [address] capsuleIndicatio ns:Chronic gastritis without bleeding, unspecified gastritis type Take 1 Capsule by mouth every morning before breakfast 90 Capsule 1 5 Active omeprazole (PRILOSEC) [address] capsuleIndicatio ns:Chronic gastritis without bleeding, unspecified gastritis type Take 1 Capsule by mouth every morning before breakfast 90 Capsule 1 4 025 Discontin ued(Reord er (E-Cancel Not Sent)) Active Problems Problem Noted Date Diagnosed Date Essential hypertension 01/16/2024 Hyperlipidemia 04/06/2023 Encounters Date Type Department Care Team Description 07/17/2024 1:00 PM EDT Office Visit [address] [phone] Kerry Martinez LPN 05/23/2024 9:40 AM EST Telemedicine Visit [address] [address] Jacek Marmolejo FNP Vasylyshyn, Oksana Essential hypertension (Primary Dx); History of kidney stones; Hearing loss of right ear, unspecified hearing loss type; Epistaxis from Last 3 Months Family History Medical History Relation Name Comments Hypertension Brother Heart attack Father age 27 Heart Problems Mother Hypertension Mother Heart Problems Sister Hypertension Sister Relation Name Status Comments Brother Alive Father Mother Alive Sister Alive Social History Tobacco Use Types Packs/Day Years Used Date Smoking Tobacco: Never Passive Smoke Exposure: Never Smokeless Tobacco: Never Tobacco Cessation:Counseling Given: Not Answered Alcohol Use Standard Drinks/Week Comments Never 0 [...] Orientation Straight 04/05/2023 1: 05 AM PST Last Filed Vital Signs Vital Sign Reading Time Taken Comments Blood Pressure 124/86 07/17/2024 1:33 PM EDT Pulse 86 07/17/2024 1:33 PM EDT Temperature 37 ??C (98.6 ??F) 03/19/2024 3:56 PM EST Respiratory Rate 16 03/19/2024 3:56 PM EST Oxygen Saturation 98% 03/19/2024 3:56 PM EST Inhaled Oxygen Concentration - - Weight 89.7 kg (197 lb 12.8 oz) 03/19/2024 3:56 PM EST Height 175.3 cm (5' 9 ) 03/19/2024 3:56 PM EST Body Mass Index 29.21 03/19/2024 3:56 PM EST Plan of Treatment Upcoming Encounters Date Type Department Care Team (Late st Contact Info) Description 08/06/2024 9:20 AM EDT Office Visit [address] [phone] Kerry Martinez LPN [phone] [place] [address] Health Maintenance Due Date Last Done Comments Anxiety Screening 1984 HIV Screening 10/31/1999 Imm-DTaP/Tdap/Td (1 - Tdap) 10/31/2003 Imm-Hepatitis B (1 of 3 - 19 + 3-dose series) 10/31/2003 Div-VNGEY-20 ( season) 2023 Imm-Influenza (#1) 2023 Annual Preventive Care Visit 04/04/2024 04/04/2023 Lipid Screening 03/19/2025 03/19/2024, 04/04/2023 Tobacco Screening 05/23/2025 05/23/2024 Diabetes Screening 03/19/2027 03/19/2024, 1 05/20/2023, 04/04/2023, Additional history exists Hepatitis C Screening Completed 04/04/2023 Alcohol and Drug Screen Completed 05/23/2024, 01/15 Depression Annual Screen Completed 05/23/2024 Procedures Procedure Name Priority Date/Time Associated Diagnosis Comments REFERRAL SCANNED DOCUMENT 06/18/2024 3:00 AM EST IMAGING SCANNED DOCUMENT 06/17/2024 3:00 AM EST IMAGING SCANNED DOCUMENT 05/28/2024 3:00 AM EST REFERRAL SCANNED DOCUMENT 05/27/2024 3:00 AM EST REFERRAL TO UROLOGY Routine 04/29/2024 3 :00 AM EST Bilateral kidney stones HEMOGLOBIN GLYCOSYLATED A1C Routine 03/19/2024 5:01 PM EST Hyperlipidemia, unspecified hyperlipidemia type LIPID PANEL Routine 03/19/2024 5:01 PM EST Hyperlipidemia, unspecified hyperlipidemia type HEPATITIS C AB W/RFLX HCV RNA, QT, RT PCR Routine 04/04/2023 2:10 PM EST Examination, medical, general from Last 3 Months or Most Recently Relevant to Health Maintenance Results * REFERRAL SCANNED DOCUMENT (06/18/2024 3:00 AM EST) Only the most recent of2 resultswithin the time period is included. 06/18/2024 3:00 AM EST Jacek Marmolejo ORDER PULLER SCAN REFERRAL Final Res ult * IMAGING SCANNED DOCUMENT (06/17/2024 3:00 AM EST) Only the most recent of2 resultswithin the time period is included. 06/17/2024 3:00 AM EST Jacek Marmolejo ORDER PULLER SCAN IMAGING Final Res ult * REFERRAL TO UROLOGY (04/29/2024 3:00 AM EST) 04/29/2024 3:00 AM EST Jacek Velázquezourt [facility] REFERRAL Edited Re sult - Final * HEMOGLOBIN GLYCOSYLATED A1C (03/19/2024 5:01 PM EST) HEMOGLOBIN A1C 5.4 <5.7 % of total Hgb [email or web address] Comment: For the purpose of screening for the presence of diabetes: <5.7% ? Consistent with the absence of diabetes 5.7-6.4% ?Consistent with increased risk for diabetes ?(prediabetes) > or =6.5% ??Consistent with diabetes This assay result is consistent with a decreased risk of diabetes. Currently, no consensus exists regarding use of hemoglobin A1c for diagnosis of diabetes in children. According to [place] Diabetes Association (ADA) guidelines, hemoglobin A1c <7.0% represents optimal control in non- diabetic patients. Different metrics may apply to specific patient populations. Standards of Medical Care in Diabetes(ADA). ?? Blood Blood / Unknown 03/19/2024 5 :01 PM EST 03/19/2024 5:01 PM EST Narrative [facility] - 03/20/2024 7:36 AM EST FASTING:NO Jacek Joséncourt [facility] - BLOOD DRAW Edited R gianfranco - Final [facility] [address] [place] [address], [email or web address] [address] [place] [phone] * (ABNORMAL) LIPID PANEL (03/19/2024 5:01 PM EST) CHOLESTEROL, TOTAL 182 <200 mg/dL [email or web address] HDL CHOLESTEROL 46 > OR = 40 mg/dL [email or web address] TRIGLYCERIDES 459(H) <150 mg/dL [email or web address] Comment: If a non-fasting specimen was collected, consider repeat triglyceride testing on a fasting specimen if clinically indicated. Naman et al. J. of Clin. Lipidol. 2015;9:129-169. LDL-CHOLESTEROL See Note QUES [facility] Comment: LDL cholesterol not calculated. Triglyceride levels greater than 400 mg/dL invalidate calculated LDL results. Reference range: <100 Desirable range <100 mg/dL for primary prevention; ?? <70 mg/dL for patients with CHD or diabetic patients with > or = 2 CHD risk factors. LDL-C is now calculated using the Ama calculation, which is a validated novel method providing better accuracy than the Friedewald equation in the estimation of LDL-C. Juan HECK et al. FORD. 2013;310(19): 9710-3966 (http://Epunchit.Dream[employer]z Foods/faq/SDR527) CHOL/HDLC RATIO 4.0 <5.0 (calc) [email or web address] NON-HDL CHOLESTEROL 136(H) <130 mg/dL (calc) [email or web address] Comment: For patients with diabetes plus 1 major ASCVD risk factor, treating to a non-HDL-C goal of <100 mg/dL (LDL-C of <70 mg/dL) is considered a therapeutic option. Blood Blood / Unknown 03/19/2024 5 :01 PM EST 03/19/2024 5:01 PM EST Narrative [facility] - 03/20/2024 7:36 AM EST FASTING:NO Jacek Marmolejo [facility] - BLOOD DRAW Final Re sult [facility] [address] [place] [id number], [email or web address] [address] [place] [phone] * HEPATITIS C AB W/RFLX HCV RNA, QT, RT PCR (04/04/2023 2:10 PM EST) HEPATITIS C ANTIBODY NON-REACT NAYELI NON-REACT NAYELI [email or web address] Comment: HCV antibody was non-reactive. There is no laboratory evidence of HCV infection. In most cases, no further action is required. However, if recent HCV exposure is suspected, a test for HCV RNA (test code 64970) is suggested. For additional information please refer to http://Epunchit.Curse/faq/DFN52g6 (This link is being provided for informational/ educational purposes only.) Blood Blood / Unknown 04/04/2023 2 :10 PM EST 04/04/2023 2:12 PM EST Narrative [facility] - 04/05/2023 2:35 PM EST NON FASTING FASTING:NO us Jacek [facility] - BLOOD DRAW Edited R esult - Final [facility] [address] [address], [facility] [address] [place] [address] from Last 3 Months or Most Recently Relevant to Health Maintenance Insurance [employer] Care Teams Financial Reporting Specialist Relationship Specialty Start Date End Date Jacek Marmolejo FNP [address] [place] [address] PCP - General Family Medicine, CHART WRITER 04/03/23
--- OUTSIDE RECORDS SUMMARY | 2024-07-18 09:54 | XMS_ITS | Data Portability ---
Author Organization [place] [facility], Allergy Address [address] [place] [phone] Care Team Providers Care Senior Staff Psychologist Name Role Phone JACKIEFEI Primary Care Provider Assessment Encounter Date Assessment Date Assessment LastModified by Organization Details LastModified Time 06/19/2024 06/19/2024 38-year-old male presents for evaluation of tonsil stones. On exam, tonsils are 2+ bilaterally and cryptic without exudate or tonsillith. Pathophysiology of tonsil stones was discussed. Recommended Flonase, nonalcohol-based oral products, use of a Waterpik, and warm salt water gargles. He will follow-up in 1 month for reevaluation. If no improvement, tonsillectomy may be discussed. Patient with chronic right sided hearing loss. Denies prior otologic surgeries. Exam today demonstrated intact TMs with well aerated middle ear spaces. We will arrange follow-up with audiometric testing to further evaluate. carmen Not available 06/19/2024 10:50:37 07/11/2024 07/11/2024 38yo male presen for hearing evaluation. He reports gradual right-sided hearing loss for many years and constant right-sided tinnitus for two years. Denies history of ear infections or ear surgeries. No family history of hearing loss. Otologic exam demonstrates TMs are intact and middle ear spaces are well aerated. External auditory canals without obstruction. Frausto lateralizes right, right BC > AC. Left AC > BC. Audiometric testing demonstrates right-sided moderate conductive hearing loss. Left ear with normal hearing. Tympanometry is normal. History and exam are suspicious for otosclerosis. Recommend middle ear evaluation with Dr. Geronimo. [email or web address] Not available 07/11/2024 16:47:19 Plan of Treatment Reminders Order Date Submit Date Provider Last Modified By Organization Details Last Modified Time Details Appointments Establish ed 10 2024 08:30A M JOHN GERONIMO MD Not available Not available Not available Lab None recorded. Referral None recorded. Procedures None recorded. Surgeries None recorded. Imaging None recorded. Medication Orders Flonase Allergy Relief 50 mcg/actua tion nasal spray,tennille pension 2024 025 [facility] #[id number], [address] [place], [address], 06/19/2024 10:51:23 Patient TargetsNo targets recorded. Patient InstructionsNo instructions recorded. Reason for Referral None Reported. Results Created Date Observation Date Name Description Value Unit Range Abnormal Flag Note LastModifiedBy Organization Detail LastModifiedTime 07/13/19 25 audio gram No observ ation record ed. BARCODE Not Available 2024 09:20:28 Result Notes None recorded. Problems Name Problem SNOMED Code Status Onset Date Resolution Date Notes Provider Name and Address Organization Details Recorded Time Breath smells unpleasant 99075589 Active 2024 MOY STEPHENSON PA-C [address] [address], [place], [phone], [facility] - [facility] 10:48:21 Amygdalolit h 5699119 Active 2024 MOY STEPHENSON PA-C [address] [address], [place], [address], [facility] - [facility] 10:48:28 Chronic sore throat 318364116 Active 2024 MOY STEPHENSON PA-C [address] [place], [address], [facility] - [facility] 5 10:48:36 Chronic tonsillitis 15798131 Active 2024 MOY STEPHENSON PA-C [address] [address], [place], [address], [facility] - [facility] 10:48:53 Chronic rhinitis 32954639 Active 2024 MOY STEPHENSON PA-C [address] [facility],[address] [facility], [place], [address], [facility] - [facility] 10:50:43 Mixed conductive AND sensorineur al hearing loss 86266865 Active 2024 Ramona leigh, [place] - [facility] 15:38:24 Conductive hearing loss 86049899 Active 2024 Ramona leigh, [place] - [facility] 15:38:24 Tinnitus of right ear 6132536648780 Active 2024 MAUDE LIVE PA-C [address] [facility],[address], [place], [address], [facility] - [facility] 16:46:36 Problem Notes None recorded. Procedures Surgical History Date Name Laterality Status Provider Name and Address Organization Details Recorded Time [employer] (77092) completed Lala Musa [facility] 07/11/2024 16:06:51 Tymps & Reflexes (29129) completed Lala Musa [facility] 07/11/2024 16:07:06 Imaging Results Imaging Date Name Status LastModified by Organiz ation Details LastModified Time 07/12/2024 audiogram completed BARCODE Information no t available 07/12/2024 09:20:28 Procedure Notes None recorded. Medical Equipment None Reported. Allergies Allergen ID Allergen Name Allergen Category Reaction Reaction Severity Criticality Documentation Date Start Date Code Code System Note Provider Name and Address Organization Details Recorded Time 147825 Product containin g penicilli n (product) medicatio n Not available Not available Not available 06/19/2024 78960 8001 SNOMED MOY STEPHENSON PA-C [address] [facility],[address], [place], [address], [facility] - [facility] 10:35:52 Medications Name Sig Start Date Stop Date Status Note LastModified by Organization Details LastModified Time atorvastati n 20 mg tablet TAKE ONE TABLET BY MOUTH NIGHTLY AT BEDTIME active Not Available Not Available No t Available erythromyci n 500 mg tablet TAKE 1 TABLET BY MOUTH EVERY 8 HOURS 07/11 completed Not Available Not Available Not Available meloxicam 7.5 mg tablet TAKE 1 TABLET BY MOUTH EVERY DAY active Not Available Not Available No t Available oxycodone-a cetaminophe n 5 mg-325 mg tablet TAKE 1 TAB ORALLY EVERY 6 HOURS NEEDED FOR PAIN, SEVERE active Not Available Not Available No t Available gabapentin 300 mg capsule TAKE 1 CAPSULE BY MOUTH TWICE A DAY active Not Available Not Available No t Available omeprazole 20 mg capsule,del ayed release TAKE 1 CAPSULE BY MOUTH EVERY DAY IN THE MORNING BEFORE BREAKFAST active Not Available Not Available No t Available fluticasone propionate 50 mcg/actuati on nasal spray,suspe nsion SPRAY 2 SPRAYS INTO EACH NOSTRIL EVERY DAY FOR 30 DAYS active Not Available Not Available No t Available ramipril 10 mg capsule TAKE ONE CAPSULE BY MOUTH ONCE daily active Not Available Not Available No t Available amlodipine 5 mg-valsarta n 320 mg tablet TAKE 1 TABLET BY MOUTH ONCE DAILY active Not Available Not Available No t Available amlodipine 10 mg-valsarta n 160 mg tablet TAKE ONE TABLET BY MOUTH ONCE DAILY active Not Available Not Available No t Available amlodipine 5 mg-valsarta n 160 mg tablet TAKE ONE TABLET BY MOUTH ONCE DAILY active Not Available Not Available No t Available Vitals Date Recorded Body height Body mass index (BMI) Body weight Provider Name and Address Organization Details Last Updated DateTime 06/19/2024 170.18 cm 31 kg/m2 57331.29 g Haley Muniz [place] [facility] 06/19/2024 10:04:02 Date Recorded Body height Body mass index (BMI) Body weight Provider Name and Address Organization Details Last Updated DateTime 07/11/2024 170.18 cm 31 kg/m2 99940.29 g Ramona Paul [place] [facility] 07/11/2024 15:38:39 Social History None recorded. Functional Status None recorded. Mental Status None recorded. Family History Nothing Reported. Medical History Condition Response Hypertension Y Past Encounters Encounter ID Performer Location Encounter Start Date Encounter Closed Date Diagnosis/Indication Diagnosis SNOMED-CT Code Diagnosis ICD10 Code Diagnosis Note [id number] MOY STEPHENSON PA-C [facility] [address] [address] 06/19/2024 09:43:52 06/19/2024 10:45:02 Breath smells unpleasant 07052689 R19.6 Amygdalolith 0157226 J35 .8 Chronic sore throat 2754 64186 J31.2 Chronic tonsillitis 9097 9004 J35.01 Chronic rhinitis 9113155 6 J31.0 [id number] JOHN GERONIMO MD [facility] [address] [phone] 07/11/2024 15:30:44 07/11/2024 16:37:20 Mixed conductive AND sensorineural hearing loss 02791979 H90.8 [facility]:{{Norm al Normal through 2 kHz Mild M oderate Mo derately-s evere Meredith re Profoun d Moderate raising to mild#}} {{with sen sorineural hearing loss with condu ctive hearing loss with* mixe d hearing loss with}} {{excellen t good grady r poor no measurable *}} word recognitio n.Left ear:{{Norm al* Normal through 2 kHz Mild M oderate Mo derately-s evere Meredith re Profoun d}} {{hearing* hearing. sloping to a mild slopi ng to a moderate s loping to moderately severe slo ping to severe slo ping to profound f lat high frequency low frequency mid frequency cookie bite zapata curve}} {{with* se nsorineura l hearing loss with condu ctive hearing loss with mixed hearing loss with}} {{excellen t good grady r poor no measurable *}} word recognitio n.SRT and WRS could not be measured due to language barriers. Tympanomet ry:Right Ear:{{Type A* Type A with rounded peak Type A with double peak Type As Type As with rounded peak Type Ad Type C Type C, shallow & rounded peak Type B Type B with large volume Cou ld not maintain a hermetic seal}}Left Ear:{{Type A Type A with rounded peak Type A with double peak Type As* Type As with rounded peak Type Ad Type C Type C, shallow & rounded peak Type B Type B with large volume Cou ld not maintain a hermetic seal}} Acoustic Reflex Testing: Signal to theRight Ear(crosse d):{{Megan l Abnormal Absent* E levated Co uld not maintain a hermetic seal}} Signal to theRight Ear(uncros sed): {{Normal A bnormal Ab sent* Elev ated Could not maintain a hermetic seal}} Signal to theLeft Ear(crosse d):{{Megan l Abnormal Absent* E levated Co uld not maintain a hermetic seal}} Signal to theLeft Ear(uncros sed):{{Nor mal Abnorm al Absent* Elevated Could not maintain a hermetic seal}} Tinnitus of right ear 48 52109491 108 H93.11 Health Concerns Section Related Observation LastModified by Organization Detai ls LastModified Time None Recorded Concern Status LastModified by Organization Details LastModified Time None Recorded Advance Directives Directive None Recorded Payers Encounter Date Sequence Insurance Name Policy Number Policy Aguilera Covered Member ID Aguilera Member ID Guarantor Name 06/19/2024 1 [place] Mehdi Petrovets [id number] Mehdi Petrovets 07/11/2024 1 [place] Mehdi Petrovets [id number] Mehdi Petrovets Notes Date Note Type Note Provider Name and Address Organization Details Recorded Time 06/19/2024 text/html 38 year old male presents for evaluation of tonsil stones. Has not tried an otc remedies. Notes chronic rhinitis and nasal congestion. Reports sore throat and halitosis with tonsil stones. No prior allergy testing and denies history of allergic rhinitis. Denies tobacco use. Denies history of chronic tonsillitis. Takes Omeprazole with good improvement in GERD, no break through acid reflux. MOY STEPHENSON PA-C [address] [place] [address], [place], [address], [place] [facility] 06/19/2024 10:52:38 07/11/2024 text/html 38yo english-speaking male presents for hearing evaluation. He reports gradual right-sided hearing loss for many years and constant right-sided ringing for 2 years. He endorses intermittent yellow waxy right ear drainage. Denies ear pain, ear infections or ear surgeries. 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 No family history of hearing loss. JOHN GERONIMO MD [address] [place] [address], [place], [address], [facility] - [facility] 07/12/2024 10:11:48
--- OUTSIDE RECORDS SUMMARY | 2024-07-18 09:54 | XMS_ITS ---
Author Organization [facility] Address [facility] [address] [place] [address] Care Team Providers Care Casting Assistant Name Role Phone Jacek Marmolejo Primary Care Provider [phone] SA38 [facility] Program Status:Enrolled (Active) Start date:07/17/2024 Enrollment date:07/17/2024 Case Team Name Relationship Phone Kerry Martinez LPN (Responsible Staff) Continued Care and Services Coordination
== END 2024-07-18 09:51 | disposition home or self-care (01) ==
LOC: HO.HOS 09:22
PROVIDERS: PCP Nurse Practitioner Family; Visit Provider Orthopaedic Surgery
DX: S83.242A Other tear of medial meniscus, current injury, left knee, initial encounter (principal)
CPT/HCPCS: 99203

== ENCOUNTER → 2024-07-18 09:27 | Outpatient (BNV) | payer MEDICAID, SELFPAY | PROVIDERS: Visit Provider Radiology Diagnostic Radiology | DX: M25.562 Pain in left knee (principal) | CPT/HCPCS: 73562 ==

== ENCOUNTER 2024-07-22 09:07 | Outpatient (REF) | payer MEDICAID, SELFPAY ==
--- NOTE | ~2024-07-22 | XR_ITS ---
EXAMINATION: XR ORBITS CLINICAL INFORMATION: PRE MRI ORBITS, R/O FB COMPARISON: None available. TECHNIQUE: 4 views of the orbits were obtained. FINDINGS: No radiopaque foreign body is evident in either orbit or elsewhere in the soft tissues. The orbits are intact. Nasal bones are intact. Mild left nasal septal deviation is noted. Paranasal sinuses are all well aerated without air-fluid levels. Mastoids appear aerated. Calvarium appears intact. No bone lesion. XR/XR pre mri screening IMPRESSION: No radiopaque foreign body evident. No acute findings. Electronically signed by: Amari De La O MD 07/22/2024 10:23 AM EDT
--- OUTSIDE RECORDS SUMMARY | 2024-07-22 10:10 | XMS_ITS | Clinical Summary ---
Author Organization [facility] Address [address] [place] [address] Care Team Providers Care Microcomputer Support Specialist Name Role Phone Jacek Marmolejo [facility] Primary Care Provider [phone] [phone] Source Comments PLEASE NOTE, if this patient [...] 0.65 % nasal sprayIndications :Epistaxis Place 1 [place] into the nostril(s) as needed for congestion [...] Description 07/17/2024 1:00 PM EDT Office Visit [address] [phone] Kerry Martinez LPN BP check (Primary Dx) 05/23/2024 9:40 AM EST Telemedicine Visit [address] [phone] Jacek Marmolejo FNP Vasylyshyn, Oksana Essential hypertension [...] Description 08/06/2024 9:20 AM EDT Office Visit [address] [phone] Kerry Martinez LPN [phone] [place] [address] Health Maintenance Due Date Last Done Comments Anxiety Screening 1984 HIV Screening 10/31/1999 Imm-DTaP/Tdap/Td (1 - Tdap) 10/31/2003 Imm-Hepatitis B (1 of 3 - 19 + 3-dose series) 10/31/2003 [id number] ( season) 2023 Imm-Influenza (#1) 2023 Annual [...] period is included. 06/18/2024 3:00 AM EST [facility] IMPORT COORDINATION AND PRODUCTION HEAD SCAN REFERRAL Final Res ult * IMAGING SCANNED DOCUMENT (06/17/2024 3:00 AM EST) Only the most recent of2 resultswithin the time period is included. 06/17/2024 3:00 AM EST Jacek Jaleel IMPORT COORDINATION AND PRODUCTION HEAD SCAN IMAGING Final Res ult * REFERRAL TO UROLOGY (04/29/2024 3:00 AM EST) 04/29/2024 3:00 AM EST [facility] Edited Re sult - Final * HEMOGLOBIN GLYCOSYLATED A1C (03/19/2024 5:01 PM EST) HEMOGLOBIN A1C 5.4 <5.7 % of total Hgb [facility] Comment: For the purpose of screening for the presence of diabetes: <5.7% ? Consistent with the absence of diabetes 5.7-6.4% ?Consistent with increased risk for diabetes ?(prediabetes) > or =6.5% ??Consistent with diabetes This assay result is consistent with a decreased risk of diabetes. Currently, no consensus exists regarding use of hemoglobin A1c for diagnosis of diabetes in children. According to [place] Diabetes Association (ADA) guidelines, hemoglobin A1c <7.0% represents optimal control in non- diabetic patients. Different metrics may apply to specific patient populations. Standards of Medical Care in Diabetes(ADA). ?? Blood Blood / Unknown 03/19/2024 5 :01 PM EST 03/19/2024 5:01 PM EST Narrative [facility] - 03/20/2024 7:36 AM EST FASTING:NO Jacek Jaleel FNP LAB - BLOOD DRAW Edited R esult - Final [facility] [address] [place] [address], [facility] [address] [place] [phone] * (ABNORMAL) LIPID PANEL (03/19/2024 5:01 PM EST) CHOLESTEROL, TOTAL 182 <200 mg/dL [facility] HDL CHOLESTEROL 46 > OR = 40 mg/dL [facility] TRIGLYCERIDES 459(H) <150 mg/dL [facility] Comment: If a non-fasting specimen was collected, consider repeat triglyceride testing on a fasting specimen if clinically indicated. Naman et al. J. of Clin. Lipidol. 2015;9:129-169. LDL-CHOLESTEROL See Note [facility] [employer] Comment: LDL cholesterol not calculated. Triglyceride levels [...] LDL-C. Juan SS et al. FORD. 2013;310(19): 3981-7500 (http://education.Dream Industries/faq/RPK081) CHOL/HDLC RATIO 4.0 <5.0 (calc) [facility] NON-HDL CHOLESTEROL 136(H) <130 mg/dL (calc) [facility] Comment: For patients with diabetes plus 1 major ASCVD risk factor, treating to a non-HDL-C goal of <100 mg/dL (LDL-C of <70 mg/dL) is considered a therapeutic option. Blood Blood / Unknown 03/19/2024 5 :01 PM EST 03/19/2024 5:01 PM EST Narrative [facility] - 03/20/2024 7:36 AM EST FASTING:NO Jacek RYANP LAB - BLOOD DRAW Final Re sult [facility] [address] [place] [address], [facility] [address] [place] [phone] * HEPATITIS C AB W/RFLX HCV RNA, QT, RT PCR (04/04/2023 2:10 PM EST) HEPATITIS C ANTIBODY NON-REACT NAYELI NON-REACT NAYELI [facility] Comment: HCV antibody was non-reactive. There is no laboratory evidence of HCV infection. In most cases, no further action is required. However, if recent HCV exposure is suspected, a test for HCV RNA (test code 08503) is suggested. For additional information please refer to http://education.[employer] Informatics.Dauria Aerospace/faq/BZI03w6 (This link is being provided for informational/ educational purposes only.) Blood Blood / Unknown 04/04/2023 2 :10 PM EST 04/04/2023 2:12 PM EST Narrative [facility] - 04/05/2023 2:35 PM EST NON FASTING FASTING:NO us Jacek LARIOS LAB - BLOOD DRAW Edited R esult - Final [facility] [address] [address], [facility] [address] [place] [address] from Last 3 Months or Most Recently Relevant to Health Maintenance Insurance [employer] Care Teams Microcomputer Support Specialist Relationship Specialty Start Date End Date Jacek Marmolejo FNP [address] [place] [address] PCP - General Family Medicine, SEWER HAND 04/03/23
--- OUTSIDE RECORDS SUMMARY | 2024-07-22 10:10 | XMS_ITS | Encounter Summary ---
Author Organization [facility] [place] [address] Care Team Providers Care Jewelry Jobber Name Role Phone Jaleel, Tylor HAY Primary Care Provider +1- [phone] Encounter Details Date Type Department Care Team (Late st Contact Info) Description 05/27/2024 Lab Requisition [facility] - Main Lab [address] [facility] [place] [address] Jose Angel Frazier PA [address] [place] [address] Calculus of kidney; Urinary tract [...] Urine No growth 05/28/2024 11:14 AM EST [facility] Urine Urine specimen obtained by clean catch procedure / Unknown 05/27/2024 11:45 AM EST 05/27/2024 1:16 PM EST us Jose Angel [facility] MICROBIOLOGY - GENERAL ORD ERABLES Final Result [facility] [address] [place] [address], documented in this encounter Visit Diagnoses Diagnosis Calculus of kidney Urinary tract infection, site not specified documented in this encounter Care Teams Jewelry Jobber Relationship Specialty Start Date End Date Jacek Marmolejo NP [address] [place] [address] PCP - General Nurse Practitioner 05/27/24 documented as of this encounter
--- OUTSIDE RECORDS SUMMARY | 2024-07-22 10:10 | XMS_ITS | Encounter Summary ---
Author Organization [facility] Address [address] [place] [address] Care Team Providers Care Family Medicine Physician Name Role Phone Jacek Marmolejo PCB DESIGNER Primary Care Provider [phone] [phone] Reason for Visit * Reason Comments Blood Pressure Check Encounter Details Date Type Department Care Team ([facility] st Contact Info) Description 07/17/2024 1:00 PM EDT Office Visit [address] [phone] Kerry Martinez LPN [phone] [place] [address] BP check (Primary Dx) Social History Tobacco [...] through Care Everywhere. * Low Sodium Diet (Hungarian) * Diet: DASH (Hungarian) documented in this encounter Progress Notes * [...] or supplements: NONE, Corvalment prescribed in [facility] Objective: Vitals: Last 3 BP Readings: Date: [...] Case Batteries Power Cord Device ID #: [id number] Education: Educated patient that proper conditions for [...] Description 08/06/2024 9:20 AM EDT Office Visit [facility] [address] [place] [address] Kerry Martinez LPN [phone] [place] [address] documented as of this encounter Goals Goal [...] documented as of this encounter Care Teams Family Medicine Physician Relationship Specialty Start Date End Date Jacek Marmolejo FNP [address] [place] [address] PCP - General Family Medicine, INTEGRATION AIDE 04/03/23 documented as of this encounter
--- OUTSIDE RECORDS SUMMARY | 2024-07-22 10:10 | XMS_ITS | Clinical Summary ---
Author Organization [facility] Address [address] [place] [address] Phone Care Team Providers Care Food Beverage Manager Name Role Phone Jacek Marmolejo NP Primary Care Provider +1- [phone] Allergies Active Allergy Reactions Criticality Noted Date [...] Description 06/07/2024 9:05 AM EST Anesthesia Event [facility] [place] [address] [place] [phone] Jose De Jesus Angeles MD 06/07/2024 9:00 AM EST - 06/07/2024 9:45 AM EST Surgery [facility] [place] [address] [place] [phone] Ramu Noble MD ESWL-LEFT [[id number] (CPT??)] 06/07/2024 7:18 AM EST - 06/07/2024 10:45 AM EST Hospital Encounter [facility] Main [place] [address] [place] [phone] Ramu Noble MD Discharge Disposition: Home or Self Care 05/27/2024 Lab Requisition [facility] Lab [address] [place] [address] Jose Angel Frazier PA Calculus of kidney 05/27/2024 Lab Requisition [facility] [address] [place] [address] Jose Angel Frazier PA Calculus [...] Procedure Name Priority Date/Time Associated Diagnosis Comments NM LITHOTRIPSY EXTRACORPOREAL SHOCK WAVE 06/07/2024 9:05 AM EST [facility] CULTURE URINE Routine 05/27/2024 11:45 AM EST [facility] kidney Urinary tract infection, site not specified COMPLETE BLOOD COUNT Routine 05/27/2024 12:00 AM EST Cal[facility] kidney from Last 3 Months Results * Culture urine (05/27/2024 11:45 AM EST) Pathologist [facility] Culture, Urine No growth 05/28/2024 11:14 AM EST [facility] Urine Urine specimen obtained by clean catch procedure / Unknown 05/27/2024 11:45 AM EST 05/27/2024 1:16 PM EST us Jose Angel [facility] MICROBIOLOGY - GENERAL ORD ERABLES Final Result [facility] [address] [place] [address], [place] [phone] * (ABNORMAL) Complete blood count (05/27/2024 12:00 AM EST) Pathologist [facility] WBC 5.8 4.8 - 10.8 K/mcL LAB HEMETOLOGY METHOD 05/27/2024 2:07 PM [facility] RBC 5.70(H) 4.50 - 5.50 M/mcL LAB HEMETOLOGY METHOD 05/27/2024 2:07 PM [facility] Hemoglobin 16.5 13.5 - 17.5 g/dL LAB HEMETOLOGY METHOD 05/27/2024 2:07 PM [facility] Hematocrit 47.6 42.0 - 54.0 % LAB HEMETOLOGY METHOD 05/27/2024 2:07 PM [facility] MCV 83.1 79.0 - 98.0 FL LAB HEMETOLOGY METHOD 05/27/2024 2:07 PM [facility] MCH 28.8 27.0 - 32.0 pcg LAB HEMETOLOGY METHOD 05/27/2024 2:07 PM [facility] MCHC 34.7 32.0 - 37.0 g/dL LAB HEMETOLOGY METHOD 05/27/2024 2:07 PM EST [facility] RDW 12.4 11.0 - 15.0 % LAB HEMETOLOGY METHOD 05/27/2024 2:07 PM [facility] Platelets 264 130 - 400 K/mcL LAB HEMETOLOGY METHOD 05/27/2024 2:07 PM [facility] MPV 10.9 7.0 - 11.0 FL LAB HEMETOLOGY METHOD 05/27/2024 2:07 PM [facility] NRBC 0.0 <1.0 % LAB HEMETOLOGY METHOD 05/27/2024 2:07 PM [facility] NRBC Absolute 0.00 <0.10 K/mcL LAB HEMETOLOGY METHOD 05/27/2024 2:07 PM [facility] Blood Venous blood specimen / Unknown 05/27/2024 05/27/2024 1:20 PM EST us Jose Angel [facility] BLOOD ORDERABLES Final Res ult [facility] [address] [place] [address], [place] [phone] from Last 3 Months Insurance [place]ICA[place] - [place] Care Teams Food Beverage Manager Relationship Specialty Start Date End Date Jacek Marmolejo NP [facility] [place] [address] PCP - General Nurse Practitioner 05/27/24
--- OUTSIDE RECORDS SUMMARY | 2024-07-22 10:10 | XMS_ITS | Data Portability ---
Author Organization [place] [facility], Allergy Address [address] [place] [phone] Care Team Providers Care Cylinder Head Assembler Name Role Phone JACKIEFEI Primary Care Provider [...] mcg/actua tion nasal spray,tennille pension 2024 025 [facility] #[id number], [address] [place], [address], 06/19/2024 10:51:23 Patient TargetsNo targets recorded. Patient [...] Organization Details Recorded Time Breath smells unpleasant 08670211 Active 2024 MOY STEPHENSON PA-C [address] [address], [place], [phone], [facility] - [facility] 10:48:21 Amygdalolit h 5524034 Active 2024 MOY STEPHENSON PA-C [address] [address], [place], [phone], [facility] - [facility] 10:48:28 Chronic sore throat 343257753 Active 2024 MOY STEPHENSON PA-C [address] [place], [phone], [facility] - [facility] 5 10:48:36 Chronic tonsillitis 64049446 Active 2024 MOY STEPHENSON PA-C [address] [address], [place], [address], [facility] - [facility] 10:48:53 Chronic rhinitis 27957797 Active 2024 MOY STEPHENSON PA-C [address] [facility],[address] [facility], [place], [address], [facility] - [facility] 10:50:43 Mixed conductive AND sensorineur al hearing loss 73040697 Active 2024 Ramona leigh, [place] - [facility] 15:38:24 Conductive hearing loss 02279161 Active 2024 Ramona leigh, [place] - [facility] 15:38:24 Tinnitus of right ear 8140761492818 Active 2024 MAUDE LIVE PA-C [address] [facility], [place], [address], [facility] - [facility] 16:46:36 Problem Notes None recorded. Procedures Surgical History Date Name Laterality Status Provider Name and Address Organization Details Recorded Time [employer] (49556) completed Lala Musa [facility] 07/11/2024 16:06:51 Tymps & Reflexes (92357) completed Lala Musa [facility] 07/11/2024 16:07:06 Imaging Results Imaging Date Name Status LastModified by Organiz ation Details LastModified Time 07/12/2024 audiogram completed [facility] Information no t available 07/12/2024 09:20:28 Procedure Notes None recorded. Medical Equipment None Reported. Allergies Allergen ID Allergen Name Allergen Category Reaction Reaction Severity Criticality Documentation Date Start Date Code Code System Note Provider Name and Address Organization Details Recorded Time 707048 Product containin g penicilli n (product) medicatio n Not available Not available Not available 06/19/2024 23743 8001 SNOMED MOY STEPHENSON PA-C [address] [facility], [place], [address], [facility] - [facility] 10:35:52 Medications Name Sig Start Date [...] Updated DateTime 06/19/2024 170.18 cm 31 kg/m2 78969.29 g Haley Muniz [place] [facility] 06/19/2024 10:04:02 Date Recorded Body height Body mass index (BMI) Body weight Provider Name and Address Organization Details Last Updated DateTime 07/11/2024 170.18 cm 31 kg/m2 25802.29 g Ramona Paul [place] [facility] 07/11/2024 15:38:39 Social History None recorded. Functional Status None recorded. Mental Status None recorded. Family History Nothing Reported. Medical History Condition Response Hypertension Y Past Encounters Encounter ID Performer Location Encounter Start Date Encounter Closed Date Diagnosis/Indication Diagnosis SNOMED-CT Code Diagnosis ICD10 Code Diagnosis Note [id number] MOY STEPHENSON PA-C [facility] [address] [address] 06/19/2024 09:43:52 06/19/2024 10:45:02 Breath smells unpleasant 62137252 R19.6 Amygdalolith 0850556 J35 .8 Chronic sore throat 2754 73754 J31.2 Chronic tonsillitis 9097 9004 J35.01 Chronic rhinitis 7119922 6 J31.0 [id number] JOHN GERONIMO MD [facility] [address] [phone] 07/11/2024 15:30:44 07/11/2024 16:37:20 Mixed conductive AND sensorineural hearing loss 20363641 H90.8 [facility]{{Norm al Normal through 2 kHz Mild [...] hermetic seal}} Tinnitus of right ear 48 62829445 108 H93.11 Health Concerns Section Related Observation LastModified by Organization Detai ls LastModified Time None Recorded Concern Status LastModified by Organization Details LastModified Time None Recorded Advance Directives Directive None Recorded Payers Encounter Date Sequence Insurance Name Policy Number Policy Aguilera Covered Member ID Aguilera Member ID Guarantor Name 06/19/2024 1 [place] [employer] Mehdi Petrovets [id number] Mehdi Petrovets 07/11/2024 1 [place] [employer] Mehdi Petrovets [id number] Mehdi Petrovets Notes Date Note Type Note [...] break through acid reflux. MOY STEPHENSON PA-C [address] [place] [address], [place], [address], [place] - [facility] 06/19/2024 10:52:38 07/11/2024 text/html 38yo kosovan-speaking male presents for hearing evaluation. He reports gradual right-sided hearing loss for many years and constant right-sided ringing for 2 years. He endorses intermittent yellow waxy right ear drainage. Denies ear pain, ear infections or ear surgeries. 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 No family history of hearing loss. JOHN GERONIMO MD [address] [place] [address], [place], [address], [facility] - [facility] 07/12/2024 10:11:48
--- OUTSIDE RECORDS SUMMARY | 2024-07-22 10:10 | XMS_ITS | Encounter Summary ---
Author Organization [facility] [address] [place] [address] Care Team Providers Care Web Developer Programmer Name Role Phone Jaleel, Tylor [employer] Primary Care Provider +1- [phone] Encounter Details Date Type Department Care Team (Late st Contact Info) Description 05/27/2024 Lab Requisition [facility] - Main Lab [address] [facility] [place] [address] Jose Angel Frazier, LON [address] [place] [address] Calculus of kidney Social History [...] AM EST) WBC 5.8 4.8 - 10.8 K/[facility] LAB HEMETOLOGY METHOD 05/27/2024 2:07 PM [facility] [...] METHOD 05/27/2024 2:07 PM [facility] RDW 12.4 11.0 - 15.0 [...] [facility] BLOOD ORDERABLES Final Res ult [facility] [address] [place] [address], documented in this encounter Visit Diagnoses Diagnosis Calculus of kidney documented in this encounter Care Teams Web Developer Programmer Relationship Specialty Start Date End Date Jacek Marmolejo NP [address] [place] [address] PCP - General Nurse Practitioner 05/27/24 documented as of this encounter
--- OUTSIDE RECORDS SUMMARY | 2024-07-22 10:10 | XMS_ITS ---
Author Organization [facility] Address [facility] [address] [place] [address] Care Team Providers Care Desktop Support Specialist Name Role Phone Jacek Marmolejo Primary Care Provider [phone] -[phone] SA[facility] Program Status:Enrolled (Active) Start date:07/17/2024 Enrollment date:07/17/2024 Case Team Name Relationship Phone Kerry Martinez LPN (Responsible Staff) [phone] Continued Care and Services Coordination
== END 2024-07-22 09:08 | disposition home or self-care (01) ==
LOC: HO.XRAY 09:07
PROVIDERS: Visit Provider Radiology Diagnostic Radiology
DX: Z13.89 Encounter for screening for other disorder (principal)

== ENCOUNTER 2024-08-07 07:48 | Outpatient (REF) | payer MEDICAID, SELFPAY ==
--- NOTE | ~2024-08-07 | MR_ITS ---
EXAMINATION: MR KNEE WITHOUT CONTRAST, LEFT CLINICAL INFORMATION: Left knee pain, posterior aspect, pulling sensation to foot and ankle. Symptoms x2-3 years. Rule out meniscal tear. COMPARISON: No prior MRI. X-rays left knee 07/18/2024. TECHNIQUE: MRI of the left knee without contrast was performed using routine sequences on a 1.5 Mckenzie Siemens high-field scanner. FINDINGS: MENISCI: Medial Meniscus: Mild intrasubstance increased linear signal which does not definitively extend to the joint surface to define a tear. Root entry zones appear normal and intact. Lateral Meniscus: Mildly increased signal in the anterior root entry zone, suggesting of mild tearing. Remainder of the meniscus appears intact and normal in signal and morphology. LIGAMENTS: Anterior Cruciate: Intact and normal in signal. Posterior Cruciate: Intact and normal in signal. Medial Collateral: Intact and normal in signal. Lateral Collateral Complex: The biceps femoris tendon, conjoined tendon, fibular collateral ligament, and popliteus tendon are all intact. Mild increased signal at the femoral condylar insertional aspect of the fibular collateral ligament noted, likely intrasubstance degeneration or sequela of old injury (series 12, image 20). Arcuate Ligament: Intact and normal in signal. EXTENSOR MECHANISM: Intact and normal in signal. Hoffa's fat pad is normal in signal. There is mildly increased signal in the suprapatellar fat pad, which could represent mild edema/fat pad impingement syndrome. Correlate with anterior suprapatellar knee pain. PATELLAR RETINACULUM: Bilaterally intact and normal in signal. The medial patellofemoral ligament is intact. BONE: There is no gross bone marrow edema or abnormal infiltrating bone marrow signal. JOINTS/CARTILAGE: Medial Compartment: Normal thickness cartilage without defect. No subchondral bone plate edema or significant arthritis. Lateral Compartment: Normal thickness cartilage without defect. No subchondral bone plate edema or significant arthritis. Patellofemoral Compartment: Normal thickness cartilage without defect. No subchondral bone plate edema or significant arthritis. JOINT FLUID AND BURSAE: There is normal joint fluid. There are no bursal abnormalities identified. OTHER: There is no Meng's cyst. The popliteal fossa structures appear normal. Iliotibial band is intact. Mild T2 signal in the fat interposed between the iliotibial band and lateral femoral condyle, possibly representing a mild case of iliotibial band friction syndrome. MR/MR knee LT wo con IMPRESSION: 1. There is no internal derangement. The menisci, major stabilizing ligamentous structures, extensor mechanism, and cruciate ligaments are all intact. 2. There is no significant arthritis present. 3. Mild edema in the suprapatellar fat pad, which could represent mild fat pad impingement syndrome. Correlate for suprapatellar anterior knee pain/point tenderness. 4. Mild increased T2 signal adjacent to the iliotibial band and lateral femoral condyle, suggesting possible iliotibial band friction syndrome. 5. Ancillary findings as discussed in the body of the report. Electronically signed by: Amari De La O MD 08/08/2024 09:20 AM EDT
--- OUTSIDE RECORDS SUMMARY | 2024-08-07 07:50 | XMS_ITS | Clinical Summary ---
Author Organization [facility] Address [address] [place] [address] Care Team Providers Care Front Line Supervisor Name Role Phone Jacek Marmolejo [facility] Primary Care Provider [phone] [phone] Source Comments PLEASE NOTE, if this patient is a minor, it may be UNLAWFUL to discuss sensitive information that is contained in these records (such as FAMILY PLANNING, MENTAL HEALTH or SUBSTANCE ABUSE) with the minor patient's parent or other person without the patient's specific authorization.[facility] Allergies Active Allergy Reactions Criticality Noted Date Comments Penicillin G Hives 03/16/2023 Medications meloxicam (MOBIC) 7.5 mg tabletIndication s:Numbness and tingling of left hand,Chronic pain of left knee Take 1 Tablet by mouth once daily 90 Tablet 1 5 Active blood pressure monitorIndicatio ns:Essential hypertension Dispense one automated BP monitor, to be used daily and prn, length of need 99 years 1 Kit 1 5 Active sodium chloride (OCEAN) 0.65 % nasal sprayIndications :Epistaxis Place 1 [place] into the nostril(s) as needed for congestion 44 mL 5 5 Active amlodipine-valsa rtan (EXFORGE) 5-320 mg per tabletIndication s:Essential hypertension Take 1 Tablet by mouth once daily 90 Tablet 1 5 Active omeprazole (PRILOSEC) [address] capsuleIndicatio ns:Chronic gastritis without bleeding, unspecified gastritis type Take 1 Capsule by mouth every morning before breakfast 90 Capsule 1 5 Active atorvastatin (LIPITOR) 20 mg tablet Take 1 Tablet by mouth nightly at bedtime 90 Tablet 1 5 Active gabapentin (NEURONTIN) 300 mg capsuleIndicatio ns:Numbness and tingling of left hand,Chronic pain of left knee Take 1 Capsule by mouth 2 (two) times daily 180 Capsule 1 5 Active atorvastatin (LIPITOR) 20 mg tablet Take 1 Tablet by mouth nightly at bedtime 90 Tablet 1 4 025 Discontin ued(Reord er (E-Cancel Not Sent)) gabapentin (NEURONTIN) 300 mg capsuleIndicatio ns:Numbness and tingling of left hand,Chronic pain of left knee Take 1 Capsule by mouth 2 (two) times daily 180 Capsule 1 4 025 Discontin ued(Reord er (E-Cancel Not Sent)) Active Problems Problem Noted Date Diagnosed Date Essential hypertension 01/16/2024 Hyperlipidemia 04/06/2023 Encounters Date Type Department Care Team Description 08/06/2024 9:20 AM EDT Office Visit [address] [address] Kerry Martinez LPN [place], Diana BP check (Primary Dx) 07/17/2024 1:00 PM EDT Office Visit [address] [address] Kerry Martinez LPN BP check (Primary Dx) 05/23/2024 9:40 AM EST Telemedicine Visit [address] [address] Jacek Marmolejo FNP [place], Oksana Essential hypertension [...] Sign Reading Time Taken Comments Blood Pressure 128/80 08/06/2024 9:46 AM EDT Pulse 78 08/06/2024 9:46 AM EDT Temperature 37 ??C (98.6 ??F) 03/19/2024 [...] Care Team (Late st Contact Info) Description 09/03/2024 9:20 AM EDT Office Visit [facility] [address] [place] [address] Kerry Martinez LPN [phone] [place] [address] [place] [address] Health Maintenance Due Date Last Done Comments Anxiety Screening 1984 HIV Screening 10/31/1999 Imm-DTaP/Tdap/Td (1 - Tdap) 10/31/2003 Imm-Hepatitis B (1 of 3 - 19 + 3-dose series) 10/31/2003 [id number] ( season) 2023 Imm-Influenza (#1) 2023 Annual [...] Author Blood Pressure < 130/80 Blood Pressure 128/80( 025 9:46 AM EDT) No Kerry Martinez LPN Hypertension: Decrease sodium intake General Improving(07/17 2:35 PM PDT) No Kerry Martinez LPN Procedures Procedure Name Priority Date/Time Associated Diagnosis Comments REFERRAL SCANNED DOCUMENT 06/18/2024 3:00 AM EST IMAGING SCANNED DOCUMENT 06/17/2024 3:00 AM EST IMAGING SCANNED DOCUMENT 05/28/2024 3:00 AM EST REFERRAL SCANNED DOCUMENT 05/27/2024 3:00 AM EST HEMOGLOBIN GLYCOSYLATED A1C Routine 03/19/2024 5:01 PM [...] is included. 06/18/2024 3:00 AM EST Jacek Velázquezourt [employer] [facility] SCAN REFERRAL Final Res ult * IMAGING SCANNED DOCUMENT (06/17/2024 3:00 AM EST) Only the most recent of2 resultswithin the time period is included. 06/17/2024 3:00 AM EST Jacek Handleyt [employer] W[facility] SCAN IMAGING Final Res ult * HEMOGLOBIN GLYCOSYLATED A1C (03/19/2024 5:01 PM EST) HEMOGLOBIN A1C 5.4 <5.7 % of total Hgb [employer] Comment: For the purpose of screening for the presence of diabetes: <5.7% ? Consistent with the absence of diabetes 5.7-6.4% ?Consistent with increased risk for diabetes ?(prediabetes) > or =6.5% ??Consistent with diabetes This assay result is consistent with a decreased risk of diabetes. Currently, no consensus exists regarding use of hemoglobin A1c for diagnosis of diabetes in children. According to [place] Diabetes Association (ADA) guidelines, hemoglobin A1c <7.0% represents optimal control in non- diabetic patients. Different metrics may apply to specific patient populations. Standards of Medical Care in Diabetes(ADA). ?? Blood Blood / Unknown 03/19/2024 5 :01 PM EST 03/19/2024 5:01 PM EST Narrative [employer] - 03/20/2024 7:36 AM EST FASTING:NO Jacek Velázquezourt [facility] - BLOOD DRAW Khari R gianfranco - Final [employer] [address] [place] [id number], [employer] [address] [address] * (ABNORMAL) LIPID PANEL (03/19/2024 5:01 PM EST) CHOLESTEROL, TOTAL 182 <200 mg/dL [facility] HDL CHOLESTEROL 46 > OR = 40 mg/dL [facility] TRIGLYCERIDES 459(H) <150 mg/dL [facility] Comment: If a non-fasting specimen was collected, consider repeat triglyceride testing on a fasting specimen if clinically indicated. Naman et al. J. of Clin. Lipidol. 2015;9:129-169. LDL-CHOLESTEROL See Note [employer] Comment: LDL cholesterol not calculated. Triglyceride levels [...] LDL-C. Juan HECK et al. FORD. 2013;310(19): 9186-1044 (http://education.DivX/faq/RDJ492) CHOL/HDLC RATIO 4.0 <5.0 (calc) [facility] NON-HDL CHOLESTEROL 136(H) <130 mg/dL (calc) [facility] Comment: For patients with diabetes plus 1 major ASCVD risk factor, treating to a non-HDL-C goal of <100 mg/dL (LDL-C of <70 mg/dL) is considered a therapeutic option. Blood Blood / Unknown 03/19/2024 5 :01 PM EST 03/19/2024 5:01 PM EST Narrative [facility] - 03/20/2024 7:36 AM EST FASTING:NO Jacek Marmolejo [facility] - BLOOD DRAW Final Re sult [employer] [address] [address], [employer] [address] [place] [address] * HEPATITIS C AB W/RFLX HCV RNA, QT, RT PCR (04/04/2023 2:10 PM EST) [facility] HEPATITIS C ANTIBODY NON-REACT NAYELI NON-REACT NAYELI [facility] Comment: HCV antibody was non-reactive. There is no laboratory evidence of HCV infection. In most cases, no further action is required. However, if recent HCV exposure is suspected, a test for HCV RNA (test code 89582) is suggested. For additional information please refer to http://education.FlowJob/faq/FVO79a9 (This link is being provided for informational/ educational purposes only.) Blood Blood / Unknown 04/04/2023 2 :10 PM EST 04/04/2023 2:12 PM EST Narrative [facility] [employer] - 04/05/2023 2:35 PM EST NON FASTING FASTING:NO us Jacek [facility] - BLOOD DRAW Edited R esult - Final [employer] [address] [address], [employer] [facility] [address] [place] [address] from Last 3 Months or Most Recently Relevant to Health Maintenance Insurance [employer] Care Teams Front Line Supervisor Relationship Specialty Start Date End Date Jacek Marmolejo FNP [address] [place] [address] PCP - General Family Medicine, PLACEMENT INTERVIEWER 04/03/23
--- OUTSIDE RECORDS SUMMARY | 2024-08-07 07:50 | XMS_ITS | Clinical Summary ---
Author Organization [facility] Address [address] [place] [address] Phone Care Team Providers Care Water Pollution Control Technician Name Role Phone Jacek Marmolejo NP Primary Care Provider [phone]- [phone] Allergies Active Allergy Reactions Criticality Noted Date [...] Description 06/07/2024 9:05 AM EST Anesthesia Event [facility] [place] [address] [place] [phone] Jose De Jesus Angeles MD 06/07/2024 9:00 AM EST - 06/07/2024 9:45 AM EST Surgery [facility] [place] [address] [place] [phone] Ramu Noble MD ESWL-LEFT [[id number] (CPT??)] 06/07/2024 7:18 AM EST - 06/07/2024 10:45 AM EST Hospital Encounter [facility] Main [place] [address] [place] [phone] Ramu oNble MD Discharge Disposition: Home or Self Care 05/27/2024 Lab Requisition [facility] [address] [place] [address] Jose Angel Frazier PA Calculus of kidney 05/27/2024 Lab Requisition [facility] [address] [place] [address] Jose Angel Frazier PA Calculus [...] age to complete this topic Meningococcal B Vaccine Aged Out No l onger eligible based on patient's age to complete [...] Procedure Name Priority Date/Time Associated Diagnosis Comments [place] LITHOTRIPSY EXTRACORPOREAL SHOCK WAVE 06/07/2024 9:05 AM EST [facility] CULTURE URINE Routine 05/27/2024 11:45 AM EST [facility] Urinary tract infection, site not specified COMPLETE BLOOD COUNT Routine 05/27/2024 12:00 AM EST Cal[facility] kidney from Last 3 Months Results * Culture urine (05/27/2024 11:45 AM EST) Pathologist [facility] Culture, Urine No growth 05/28/2024 11:14 AM EST [facility] Urine Urine specimen obtained by clean catch procedure / Unknown 05/27/2024 11:45 AM EST 05/27/2024 1:16 PM EST us Jose Angel [facility] MICROBIOLOGY - GENERAL ORD ERABLES Final Result [facility] [address] [place] [address], [place] [phone] * (ABNORMAL) Complete blood count (05/27/2024 12:00 AM EST) Pathologist [facility] WBC 5.8 4.8 - 10.8 K/mcL LAB HEMETOLOGY METHOD 05/27/2024 2:07 PM [facility] RBC 5.70(H) 4.50 - 5.50 M/mcL LAB HEMETOLOGY METHOD 05/27/2024 2:07 PM [facility] Hemoglobin 16.5 13.5 - 17.5 g/dL LAB HEMETOLOGY METHOD 05/27/2024 2:07 PM [facility] Hematocrit 47.6 42.0 - 54.0 % LAB HEMETOLOGY METHOD 05/27/2024 2:07 PM [facility] MCV 83.1 79.0 - 98.0 FL LAB HEMETOLOGY METHOD 05/27/2024 2:07 PM [facility] MCH 28.8 27.0 - 32.0 pcg LAB HEMETOLOGY METHOD 05/27/2024 2:07 PM [facility] MCHC 34.7 32.0 - 37.0 g/dL LAB HEMETOLOGY METHOD 05/27/2024 2:07 PM EST [facility] RDW 12.4 11.0 - 15.0 % LAB HEMETOLOGY METHOD 05/27/2024 2:07 PM [facility] Platelets 264 130 - 400 K/mcL LAB HEMETOLOGY METHOD 05/27/2024 2:07 PM [facility] MPV 10.9 7.0 - 11.0 FL LAB HEMETOLOGY METHOD 05/27/2024 2:07 PM [facility] NRBC 0.0 <1.0 % LAB HEMETOLOGY METHOD 05/27/2024 2:07 PM [facility] NRBC Absolute 0.00 <0.10 K/mcL LAB HEMETOLOGY METHOD 05/27/2024 2:07 PM [facility] Blood Venous blood specimen / Unknown 05/27/2024 05/27/2024 1:20 PM EST us Jose Angel Frazier PA LAB BLOOD ORDERABLES Final Res ult [facility] [address] [place] [address], from Last 3 Months Insurance MEDICA[place] - [place] Care Teams Water Pollution Control Technician Relationship Specialty Start Date End Date Jacek Marmolejo NP [address] [place] [address] PCP - General Nurse Practitioner 05/27/24
--- OUTSIDE RECORDS SUMMARY | 2024-08-07 07:50 | XMS_ITS | Encounter Summary ---
Author Organization [facility] Address [address] [place] [address] Care Team Providers Care Wind Tunnel Mechanic Name Role Phone Jacek Marmolejo [employer] Primary Care Provider [phone] -[phone] Reason for Visit * Reason Comments Blood Pressure Check Encounter Details Date Type Department Care Team ([facility] st Contact Info) Description 08/06/2024 9:20 AM EDT Office Visit [address] [phone] Kerry Martinez LPN [address] [place] [address] [place] [address] BP check (Primary Dx) Social History Tobacco [...] Pulse 78 08/06/2024 9:46 AM EDT Temperature - - Respiratory Rate - - Oxygen Saturation - - Inhaled Oxygen Concentration - - Weight - - Height - - Body Mass Index - - documented in this encounter Progress Notes * Kerry Martinez LPN - 08/06/2024 9:44 AM EDT Mehdi Lechuga is a 38 year old male here for follow-up Self-Monitoring of Blood Pressure (SMBP) visit. Patient Referred by: HARRIET Antoine Subjective: Patient reports: Taking BP medication as prescribed. Following a low sodium diet. New concerns: NONE DIET: Do you add salt to your food? YES/NO: No Do you eat a lot of canned/pre-packaged food products? YES/NO: No Diet adherence: adherent most of the time Patient in need of additional nutritional support? YES/NO: No EXERCISE: Physical activity: minimal exercise: walking and stretching Patient in need of additional fitness/exercise support? YES/NO: No TOBACCO USE Does patient smoke cigarettes? reports that he has never smoked. He has never been exposed to tobacco smoke. He has never used smokeless tobacco. Patient interested in smoking cessation? Yes No Not Applicable: Not applicable STRESS MANAGEMENT Is the patient interested in [facility] Behavioral Health? No, patient is not interested MEDICATION Antihypertensive medications: Amlodipine -Valsartan 5-320 mg QD Did the patient take their blood pressure medication today? YES/NO: Yes Medication adherence: adherent most of the time, Medication side effects: none, Over the counter medications or supplements: NONE Objective: [Perform blood pressure check using patient???s loaner device and using in- office monitor to verifyaccuracy.] Accuracy of home device successfully verified: YES/NO: No Reviewed patient???s home readings in [employer] or device memory. Verified that patient self-entered at least their last three readings into [employer]. [If not, Nurse input last three readings into MyChart for patient.] Vitals: Last 3 BP Readings: Date: BP: 08/06/2024 128/80 07/17/2024 124/86 03/19/2024 120/80 Wt Readings from Last 3 Encounters: 03/19/24 197 lb 12.8 oz (89.7 kg) 01/16/24 196 lb (88.9 kg) 04/04/23 191 lb (86.6 kg) Lab Results Component Value Date NA 138 03/19/2024 K 3.9 03/19/2024 BUN 26 (H) 03/19/2024 BUNCREAT 21 03/19/2024 CREATININE 1.25 03/19/2024 EGFR 75 03/19/2024 Assessment Diagnosis: There are no diagnoses linked to this encounter. BP Goal: 130/80 BP Measurement Frequency: Frequency of blood pressure self-monitorin Daily [employer] Plan Medication changes recommended by PCP: Will reach out to PCP for the following referral(s): None Follow Up: No follow-ups on file. Referrals: No diagnosis found. Goals: Goals Addressed This Visit's Progress Hypertension: Decrease sodium intake Improving Education: DIET: Educated patient that certain foods can increase blood pressure. Eat foods lower in fat, salt, and calories. Use spices and herbs, vinegar, lemon or fruit juices instead of salt to flavor foods. Use less oil, butter, margarine, shortening, and salad dressings. Canned products are high in sodium. Use fresh or frozen vegetables instead. Use MrsAbelardo Munson or Low Sodium Daya seasoning to flavor foods. If patient interested, place referral to nutrition and schedule directly with site nutrition services assistant. and EXERCISE: Educated patient that cardiovascular, or aerobic, exercise can help lower blood pressure and make the heart stronger. Examples include walking, jogging, jumping rope, bicycling ( stationary or outdoor), skating, high-or low-impact aerobics, swimming, and water aerobic Physical Activity Resources Nurse/PCP Recommendations: Individualized Fitness with Sales Assistant Displays YES/NO: No, Individualized Fitness with Sales Assistant Displays YES/NO: No, Community-Based Walking or Wellness Programs YES/NO: No Communicated patient???s blood pressure ranges to PCP to obtain orders, confirm ongoing blood pressure measurement frequencies, confirm recommendations for medication titration, and plan for follow-ups. Pt has been taking BP medication. BP at home running 136/90,144/94,136/80,156/80 prior to taking BPmedication. Pt will continue with current medication regimen and with a low sodium diet. Pt has been scheduled for SMBP f/u. documented in this encounter Plan of Treatment Upcoming Encounters Date Type Department Care Team (Late st Contact Info) Description 09/03/2024 9:20 AM EDT Office Visit [facility] [address] [place] [address] Kerry Martinez LPN [phone] [place] [address] [place] [address] documented as of this encounter Goals Goal Patient Goal Type Associated Problems Recent Progress Patient-Stated? Author Blood Pressure < 130/80 Blood Pressure 128/80( 025 9:46 AM EDT) No Kerry Martinez LPN Hypertension: Decrease sodium intake General Improving(07/17 2:35 PM PDT) No Kerry Martinez LPN documented as of this encounter Visit Diagnoses Diagnosis BP check- Primary Screening for hypertension documented in this encounter Additional Health Concerns Assessment Noted Time PHQ-9 Depression Total Score: 0 05/23/19 25 10:12 AM PST documented as of this encounter Care Teams Wind Tunnel Mechanic Relationship Specialty Start Date End Date Jacek Marmolejo FNP [facility] [place] [address] PCP - General Family Medicine, PBX INSPECTOR 04/03/23 documented as of this encounter
--- OUTSIDE RECORDS SUMMARY | 2024-08-07 07:50 | XMS_ITS | Encounter Summary ---
Author Organization [facility] [place] [address] Care Team Providers Care Research And Development Engineer Name Role Phone Jaleel, Tylor BENCH MOVER Primary Care Provider [phone]- [phone] Encounter Details Date Type Department Care Team (Late st Contact Info) Description 05/27/[address] [facility] Lab [address] [facility] [place] [address] Jose Angel Frazier, LON [address] [place] [address] Calculus of kidney Social History [...] AM EST) WBC 5.8 4.8 - 10.8 K/[facility] LAB HEMETOLOGY METHOD 05/27/2024 2:07 PM [facility] RBC 5.70(H) 4.50 - 5.50 M/mcL LAB HEMETOLOGY METHOD 05/27/2024 2:07 PM [facility] Hemoglobin 16.5 13.5 - 17.5 g/dL LAB HEMETOLOGY METHOD 05/27/2024 2:07 PM [facility] Hematocrit 47.6 42.0 - 54.0 % LAB HEMETOLOGY METHOD 05/27/2024 2:07 PM [facility] MCV 83.1 79.0 - 98.0 FL LAB HEMETOLOGY METHOD 05/27/2024 2:07 PM [facility] MCH 28.8 27.0 - 32.0 pcg LAB HEMETOLOGY METHOD 05/27/2024 2:07 PM [facility] MCHC 34.7 32.0 - 37.0 g/dL LAB HEMETOLOGY METHOD 05/27/2024 2:07 PM [facility] RDW 12.4 11.0 - 15.0 % LAB HEMETOLOGY METHOD 05/27/2024 2:07 PM [facility] Platelets 264 130 - 400 K/mcL LAB HEMETOLOGY METHOD 05/27/2024 2:07 PM [facility] MPV 10.9 7.0 - 11.0 FL LAB HEMETOLOGY METHOD 05/27/2024 2:07 PM [facility] NRBC 0.0 <1.0 % LAB HEMETOLOGY METHOD 05/27/2024 2:07 PM [facility] NRBC Absolute 0.00 <0.10 K/mcL LAB HEMETOLOGY METHOD 05/27/2024 2:07 PM [facility] Blood Venous blood specimen / Unknown 05/27/2024 05/27/2024 1:20 PM EST us Jose Angel [facility] BLOOD ORDERABLES Final Res ult [facility] [address] [place] [address], documented in this encounter Visit Diagnoses Diagnosis Calculus of kidney documented in this encounter Care Teams Research And Development Engineer Relationship Specialty Start Date End Date Jacek Marmolejo NP [address] [place] [address] PCP - General Nurse Practitioner 05/27/24 documented as of this encounter
--- OUTSIDE RECORDS SUMMARY | 2024-08-07 07:50 | XMS_ITS | Encounter Summary ---
Author Organization [facility] [place] [address] Care Team Providers Care Striker Off Name Role Phone Jaleel, Tylor HAY Primary Care Provider +1- [phone] Encounter Details Date Type Department Care Team (Late st Contact Info) Description 05/27/2024 Lab Requisition [facility] - Main Lab [address] [facility] [place] [address] Jose Angel Frazier PA [address] [place] [address] Calculus of kidney; Urinary tract [...] Urine No growth 05/28/2024 11:14 AM EST [facility] Urine Urine specimen obtained by clean catch procedure / Unknown 05/27/2024 11:45 AM EST 05/27/2024 1:16 PM EST us Jose Angel [facility] MICROBIOLOGY - GENERAL ORD ERABLES Final Result [facility] [address] [place] [address], documented in this encounter Visit Diagnoses Diagnosis Calculus of kidney Urinary tract infection, site not specified documented in this encounter Care Teams Striker Off Relationship Specialty Start Date End Date Jacek Marmolejo NP [address] [place] [address] PCP - General Nurse Practitioner 05/27/24 documented as of this encounter
--- OUTSIDE RECORDS SUMMARY | 2024-08-07 07:51 | XMS_ITS | Data Portability ---
Author Organization [place] [facility], Allergy Address [address] [place] [address] Care Team Providers Care Commissioner Of Conciliation Name Role Phone JACKIEFEI Primary Care Provider [...] mcg/actua tion nasal spray,tennille pension 2024 025 [facility]/Ph[facility]acy #[id number], [address] [place], [address], 06/19/2024 10:51:23 Patient TargetsNo targets recorded. Patient [...] Organization Details Recorded Time Breath smells unpleasant 24765061 Active 2024 MOY STEPHENSON PA-C [address] [address], [place], [address], [facility] - [facility] 10:48:21 Amygdalolit h 0751293 Active 2024 MOY STEPHENSON PA-C [address] [address], [place], [address], [facility] - [facility] [place] 10:48:28 Chronic sore throat 750770278 Active 2024 MOY STEPHENSON PA-C [address] [place], [address], [facility] - [facility] [place] 5 10:48:36 Chronic tonsillitis 90045641 Active 2024 MOY STEPHENSON PA-C [address] [address], [facility] [place] [place], [address], [facility] - [facility] [place] 10:48:53 Chronic rhinitis 14114162 Active 2024 MOY STEPHENSON PA-C 100 [facility] [place],ST E [facility], [place], [address], [facility] - [facility] [place] 10:50:43 Mixed conductive AND sensorineur al hearing loss 32339487 Active 2024 Ramona leigh, [place] - [facility] [place] 15:38:24 Conductive hearing loss 72615821 Active 2024 Ramona leigh, [place] - [facility] [place] 15:38:24 Tinnitus of right ear 3038632568006 Active 2024 MAUDE LIVE PA-C 100 [facility] [place],[address], [place], [address], [facility] - [facility] [place] 16:46:36 Problem Notes None recorded. Procedures Surgical History Date Name Laterality Status Provider Name and Address Organization Details Recorded Time [employer] (02864) completed Lala Musa [facility] 07/11/2024 16:06:51 Tymps & Reflexes (95166) completed Lala Musa [facility] 07/11/2024 16:07:06 Imaging Results Imaging Date Name Status LastModified by Organiz ation Details LastModified Time 07/12/2024 audiogram completed BARCODE Information no t available 07/12/2024 09:20:28 Procedure Notes None recorded. Medical Equipment None Reported. Allergies Allergen ID Allergen Name Allergen Category Reaction Reaction Severity Criticality Documentation Date Start Date Code Code System Note Provider Name and Address Organization Details Recorded Time 049829 Product containin g penicilli n (product) medicatio n Not available Not available Not available 06/19/2024 21188 8001 SNOMED MOY STEPHENSON PA-C 100 [facility] [place],[address], [place], [address], [facility] - [facility] 10:35:52 Medications Name Sig Start Date [...] Updated DateTime 06/19/2024 170.18 cm 31 kg/m2 75570.29 g Haley Muniz [place] - [facility] 06/19/2024 10:04:02 Date Recorded Body height Body mass index (BMI) Body weight Provider Name and Address Organization Details Last Updated DateTime 07/11/2024 170.18 cm 31 kg/m2 97957.29 g Ramona Paul [place] [facility] 07/11/2024 15:38:39 Social History None recorded. Functional Status None recorded. Mental Status None recorded. Family History Nothing Reported. Medical History Condition Response Hypertension Y Past Encounters Encounter ID Performer Location Encounter Start Date Encounter Closed Date Diagnosis/Indication Diagnosis SNOMED-CT Code Diagnosis ICD10 Code Diagnosis Note [id number] MOY STEPHENSON PA-C [facility] [address] [address] 06/19/2024 09:43:52 06/19/2024 10:45:02 Breath smells unpleasant 70387173 R19.6 Amygdalolith 1285743 J35 .8 Chronic sore throat 2754 46321 J31.2 Chronic tonsillitis 9097 9004 J35.01 Chronic rhinitis 6958899 6 J31.0 [id number] JOHN GERONIMO MD [facility] [address] [address] 07/11/2024 15:30:44 07/11/2024 16:37:20 Mixed conductive AND sensorineural hearing loss 44523924 H90.8 [facility]Norm al Normal through 2 kHz Mild [...] hermetic seal}} Tinnitus of right ear 48 78772377 108 H93.11 Health Concerns Section Related Observation LastModified by Organization Detai ls LastModified Time None Recorded Concern Status LastModified by Organization Details LastModified Time None Recorded Advance Directives Directive None Recorded Payers Encounter Date Sequence Insurance Name Policy Number Policy Aguilera Covered Member ID Aguilera Member ID Guarantor Name 06/19/2024 1 [place] Mehdi Petrovets [id number] Mehdi Petrovets 07/11/2024 1 [place] Mehdi Petrovets [id number] Mehdi Petrovets Notes Date Note Type Note [...] break through acid reflux. MOY STEPHENSON PA-C [address] [place] [address], [place], [address], [place] - [facility] 06/19/2024 10:52:38 07/11/2024 text/html 38yo togolese-speaking male presents for hearing evaluation. He reports gradual right-sided hearing loss for many years and constant right-sided ringing for 2 years. He endorses intermittent yellow waxy right ear drainage. Denies ear pain, ear infections or ear surgeries. 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 No family history of hearing loss. JOHN GERONIMO MD [address] [place] [address], [place], [address], [facility] - [facility] 07/12/2024 10:11:48
--- OUTSIDE RECORDS SUMMARY | 2024-08-07 07:51 | XMS_ITS ---
Author Organization [facility] Address [facility] [address] [place] [address] Care Team Providers Care Patient Support Specialist Name Role Phone Jacek Marmolejo Primary Care Provider [phone] [phone] SA38 [facility] Program Status:Enrolled (Active) Start date:07/17/2024 Enrollment date:07/17/2024 Case Team Name Relationship Phone Kerry Martinez LPN (Responsible Staff) Continued Care and Services Coordination
== END 2024-08-07 07:49 | disposition home or self-care (01) ==
LOC: HO.MRI 07:48
PROVIDERS: Visit Provider Orthopaedic Surgery
DX: S83.242A Other tear of medial meniscus, current injury, left knee, initial encounter (principal)
CPT/HCPCS: 73721

== ENCOUNTER → 2024-08-07 08:01 | Outpatient (BNV) | payer MEDICAID, SELFPAY | PROVIDERS: Visit Provider Radiology Diagnostic Radiology | DX: M25.562 Pain in left knee (principal) | CPT/HCPCS: 73721 ==

== ENCOUNTER 2024-08-09 09:30 | Outpatient (RCR) | payer MEDICAID, SELFPAY ==
--- NOTE | 2024-07-24 10:26 | MHC.OT.EP ---
[address] [phone] Occupational Therapy Plan of Care Patient Name: Mehdi Lechuga Date of Evaluation: 07/24/24 Diagnosis: Left Hand Stiffness Pain Location: Low sharp pain through palm Pt has occasional triggering in left thumb (with gripping - hammering) No tenderness over !a val w/ middle finger or thumb Pain Score: 2 Pain Scale Used: Numeric (0 - 10) Aggravating Factors: Gripping Alleviating Factors: Gabapentin, Tylenol Assessment: 38 yo male underwent left cubital tunnel and carpal tunnel release 03/28/24 w/ Dr Boateng. Had follow-up 07/10 w/ LON Alaniz and was having right wrist pain and left hand stiffness and pain/pulling in middle finger. He reports relief of numbness in left hand, but has pain and pulling through wrist and into middle finger. 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 On assessment, he has good strength, sensation, coordination and range. Only tightness w/ wrist and digit composite extension and noting area of pain in palm with overuse. We will continue OT services to progress stretching and strengthening w/ goal of ease w/ daily activities. Frequency and Duration: The patient will be seen 1x/wk for 3 weeks Short Term Goals: Ind w/ HEP Ind w/ self massage and and soft tissue mobilization Initiate postural strengthening Care Home Goals: Ind w/ progression of strengthening Good follow through w/ breaks and modification of task as needed Treatment Plan: Therapeutic Exercise Therapeutic Activity Home Exercise Program Patient Education ADL Training Ultrasound MHP Cold Packs Soft Tissue Mobilization Electronically Signed By: Kristi Kwong OTR/L CHT Please Sign and return to therapist. Thank you once again for your referral.
--- NOTE | 2024-09-13 10:34 | MHC.OT.DC ---
[address] [phone] F: [phone] Occupational Therapy Discharge Note Patient Name: Mehdi Lechuga Provider: Ramu Shaikh PA-C Diagnosis: Left Hand Stiffness Date of Surgery: 03/28/24 Date of Evaluation: 07/24/24 Date of Discharge: 09/13/24 Treatments to Date: 3 Cancellations to Date: 1 No Shows to Date: Discharge Status: Independent with HEP Patient Elected to Stop Discharge Summary: Mehdi was referred to OT post-op left cubital tunnel and carpal tunnel release 03/28/24. He has had some relief in hand pain and stiffness, but still with pain and numbness in base of hand/palm over surgical site. He has been educated on scar/soft tissue management and home exercise program for strengthening, but cancelled last visit and did not follow up. He should be Ind w/ self management at this time. Electronically Signed By: Kristi Kwong OTR/Aubrey CHT Reviewed/agree with student documentation: Therapist: Please Sign and return to therapist, thank you for your referral.
== END 2024-09-13 10:35 | disposition home or self-care (01) ==
LOC: HO.OT 09:30
PROVIDERS: PCP Nurse Practitioner Family
DX: M25.642 Stiffness of left hand, not elsewhere classified (principal)
CPT/HCPCS: 97110; 97140; 97165

== ENCOUNTER 2024-08-29 12:50 | Outpatient (AMB) | payer MEDICAID, SELFPAY ==
[2024-08-29 12:53] VITALS: BMI 25.7
--- NOTE | 2024-08-29 12:53 | A.OFFVIS_ITS ---
Vital Signs 08/29/24 12:53 Height 5 ft 9 in Weight 174 lb BMI 25.7 Intake Visit Reasons: Low back pain, Left knee pain Intake Note: Mehdi is a 38 year old male who presents with complaints of progressively worsening low back pain which radiates down to his left foot. The patient states that at times his left great toe is ?numb?. The patient has been seen by a back specialist while living in the [facility]. The back treatments gave him minimal relief. He also reports intermittent weakness in his left leg. The patient describes his left knee pain as sharp in nature. Most of his left knee pain is along the medial aspect of his knee. He has tried Tylenol, meloxicam and gabapentin which gave him only mild relief. Health Analytics Consultant Required: Yes Health Analytics Consultant Language: Yoruba Health Analytics Consultant Name: [id number] Allergies Penicillins Allergy (Verified 08/29/24 12:59) rash Medication List - Last Reconciled 08/29/24 by Lavelle Abdullahi MD amlodipine-valsartan 5-320 mg 1 tab PO DAILY atorvastatin 20 mg PO BEDTIME fluticasone propionate 50 mcg/actuation intranasal gabapentin 300 mg PO BID meloxicam 7.5 mg PO DAILY omeprazole 20 mg PO DAILY PFSH Surgical History History of right nephrectomy Social History Are you a primary direct care staffer to a significant other at home: No Do you presently have visiting nurse or other home services: No Patient Tobacco Use Status: Never used Tobacco Current occupational status: employed Current occupation: construction, left hand dominant Physical Exam Vital Signs: BMI result Body Mass Index 25.7 Const Other: Well-nourished well-developed very friendly male awake alert and oriented x3 in no acute distress Back/Spine/Pelvis Other: Low back examination shows left-sided paraspinal muscle tenderness, pain with range of motion, positive straight leg raise test on the left at 70 degrees, 4/5 strength with testing of his left hip flexors and knee extensors when compared to 5/5 strength on his right side Extrem Other: Left knee examination shows a minimal effusion, minimal crepitus with range of motion, tenderness along his medial joint line, positive Melany's test, no instability Results Reviewed Results Reviewed: MRI of the patient's left knee shows mild diffuse degenerative changes as well as a small tear of the medial meniscus Assessment & Plan Assessment & Plan (1) Low back pain radiating to left leg: Code(s): M54.50 - Low back pain, unspecified; M79.605 - Pain in left leg Category: Medical (2) Left knee pain: Code(s): M25.562 - Pain in left knee Category: Medical Plan Mr. Lechuga presents with progressively worsening low back pain which radiates down his left leg as well as associated left leg weakness possibly due to lumbar stenosis or a disc herniation. Thus, I will send the patient for an MRI of his lumbar spine for further evaluation. I will see him back once the MRI is completed to discuss the findings and treatment options. He also has left knee pain and mechanical symptoms due to a small medial meniscus tear. We will hold off on surgery for now. He will contact me prior to his follow-up appointment should his symptoms worsen in any way. Well-nourished well-developed very friendly male awake alert and oriented x3 in no acute distress Orders: Orders MR lumbar spine wo con Today M54.50 - Low back pain, unspecified, M79.605 - Pain in left leg Coding Level of Care Code Est Pt Level 3 (77507) Complex EM visit Add On G2211 Diagnoses Low back pain radiating to left leg M54.50; M79.605 Left knee pain M25.562
--- OUTSIDE RECORDS SUMMARY | 2024-08-29 13:27 | XMS_ITS ---
Author Organization [facility] Address [facility] [address] [place] [address] Care Team Providers Care Consulting Sales Manager Name Role Phone Jacek Marmolejo [facility] Primary Care Prov ider SA38 [facility] Program Status:Enrolled (Active) Start date:07/17/2024 Enrollment date:07/17/2024 Case Team Name Relationship Phone Kerry Martinez LPN (Responsible Staff) [phone] Continued Care and Services Coordination
--- OUTSIDE RECORDS SUMMARY | 2024-08-29 13:27 | XMS_ITS | Encounter Summary ---
Author Organization [facility] [place] [address] Care Team Providers Care Manager Wealth Management Name Role Phone Jaleel, Tylor BRICK AND TILE MAKING MACHINE OPERATOR Primary Care Provider [phone]- [phone] Encounter Details Date Type Department Care Team (Late st Contact Info) Description 05/27/2024 Lab Requisition [facility] - Main Lab [address] [facility] [place] [address] Jose Angel Frazier, LON [address] [place] [address] Calculus of kidney Social History [...] AM EST) WBC 5.8 4.8 - 10.8 K/[facility] LAB HEMETOLOGY METHOD 05/27/2024 2:07 PM [...] [facility] BLOOD ORDERABLES Final Res ult [facility] [address] [place] [address], documented in this encounter Visit Diagnoses Diagnosis Calculus of kidney documented in this encounter Care Teams Manager Wealth Management Relationship Specialty Start Date End Date Jacek Marmolejo NP [address] [place] [address] PCP - General Nurse Practitioner 05/27/24 documented as of this encounter
--- OUTSIDE RECORDS SUMMARY | 2024-08-29 13:27 | XMS_ITS | Clinical Summary ---
Author Organization [facility] Address [address] [place] [address] Care Team Providers Care Can Conveyor Feeder Name Role Phone JaleelJacek [facility] Primary Care Prov ider Source Comments PLEASE NOTE, if this patient [...] 0.65 % nasal sprayIndications :Epistaxis Place 1 [place] into the nostril(s) as needed for congestion [...] 08/06/2024 9:20 AM EDT Office Visit [address] [address] Kerry Martinez LPN [place], [place] BP check (Primary Dx) 07/17/2024 1:00 PM EDT Office Visit [address] [address] Kerry Martinez LPN BP check (Primary Dx) from Last 3 Months Family History Medical [...] Description 09/03/2024 9:20 AM EDT Office Visit [facility] [address] [place] [phone] Kerry Martinez LPN [phone] [place] [address] [place] [address] Health Maintenance Due Date Last Done Comments Anxiety Screening 1984 HIV Screening 10/31/1999 Imm-DTaP/Tdap/Td (1 - Tdap) 10/31/2003 Imm-Hepatitis B (1 of 3 - 19 + 3-dose series) 10/31/2003 Atv-JVALH-40 ( - season) 2023 Imm-Influenza (#1) 2023 Annual Preventive [...] IMAGING SCANNED DOCUMENT 06/17/2024 3:00 AM EST HEMOGLOBIN GLYCOSYLATED A1C Routine 03/19/2024 5:01 PM EST Hyperlipidemia, unspecified hyperlipidemia type LIPID PANEL Routine 03/19/2024 5:01 PM EST Hyperlipidemia, unspecified hyperlipidemia type HEPATITIS C AB W/RFLX HCV RNA, QT, RT PCR Routine 04/04/2023 2:10 PM EST Examination, medical, general from Last 3 Months or Most Recently Relevant to Health Maintenance Results * REFERRAL SCANNED DOCUMENT (06/18/2024 3:00 AM EST) 06/18/2024 3:00 AM EST us Jacek Marmolejo COMPUTER NETWORK AND SYSTEMS ENGINEER SCAN REFERRAL Fi nal Result * IMAGING SCANNED DOCUMENT (06/17/2024 3:00 AM EST) 06/17/2024 3:00 AM EST us Jacek Marmolejo COMPUTER NETWORK AND SYSTEMS ENGINEER SCAN IMAGING Fi nal Result * HEMOGLOBIN GLYCOSYLATED A1C (03/19/2024 5:01 PM EST) Pathologist [facility] HEMOGLOBIN A1C 5.4 <5.7 % of total Hgb Minka Comment: For the purpose of screening for the presence of diabetes: <5.7% ? Consistent with the absence of diabetes 5.7-6.4% ?Consistent with increased risk for diabetes ?(prediabetes) > or =6.5% ??Consistent with diabetes This assay result is consistent with a decreased risk of diabetes. Currently, no consensus exists regarding use of hemoglobin A1c for diagnosis of diabetes in children. According to [place] Diabetes Association (ADA) guidelines, hemoglobin A1c <7.0% represents optimal control in non- diabetic patients. Different metrics may apply to specific patient populations. Standards of Medical Care in Diabetes(ADA). ?? Blood Blood / Unknown 03/19/2024 5 :01 PM EST 03/19/2024 5:01 PM EST Narrative [facility] - 03/20/2024 7:36 AM EST FASTING:NO Jacek Marmolejo [facility] - BLOOD DRAW E dited Result - Final [facility] [address] [place] [address], Minka [address] [place] [phone] * (ABNORMAL) LIPID PANEL (03/19/2024 5:01 PM EST) [facility] CHOLESTEROL, TOTAL 182 <200 mg/dL Minka HDL CHOLESTEROL 46 > OR = 40 mg/dL Minka TRIGLYCERIDES 459(H) <150 mg/dL Minka Comment: If a non-fasting specimen was collected, consider repeat triglyceride testing on a fasting specimen if clinically indicated. Naman et al. J. of Clin. Lipidol. 2015;9:129-169. LDL-CHOLESTEROL See Note QUES [employer] Comment: LDL cholesterol not calculated. Triglyceride levels [...] LDL-C. Juan HECK et al. FORD. 2013;310(19): 3131-5213 (http://Ps[employer].BetTech Gaming/faq/AWL407) CHOL/HDLC RATIO 4.0 <5.0 (calc) Minka NON-HDL CHOLESTEROL 136(H) <130 mg/dL (calc) Minka Comment: For patients with diabetes plus 1 major ASCVD risk factor, treating to a non-HDL-C goal of <100 mg/dL (LDL-C of <70 mg/dL) is considered a therapeutic option. Blood Blood / Unknown 03/19/2024 5 :01 PM EST 03/19/2024 5:01 PM EST Narrative [facility] - 03/20/2024 7:36 AM EST FASTING:NO Jacek Marmolejo COMPUTER NETWORK AND SYSTEMS ENGINEER LAB - BLOOD DRAW F inal Result [facility] [address] [place] [address], Minka [address] [place] [phone] * HEPATITIS C AB W/RFLX HCV RNA, QT, RT PCR (04/04/2023 2:10 PM EST) HEPATITIS C ANTIBODY NON-REACT NAYELI NON-REACT NAYELI Minka Comment: HCV antibody was non-reactive. There is no laboratory evidence of HCV infection. In most cases, no further action is required. However, if recent HCV exposure is suspected, a test for HCV RNA (test code 44014) is suggested. For additional information please refer to http://Ps[employer].EternoGen/faq/NTD51h3 (This link is being provided for informational/ educational purposes only.) Blood Blood / Unknown 04/04/2023 2 :10 PM EST 04/04/2023 2:12 PM EST Narrative [facility] - 04/05/2023 2:35 PM EST NON FASTING FASTING:NO Jacek [facility] - BLOOD DRAW E dited Result - Final [facility] [address] [address], [facility] [address] [place] [address] from Last 3 Months or Most Recently Relevant to Health Maintenance Insurance [employer] Care Teams Can Conveyor Feeder Relationship Specialty Start Date End Date Jacek Marmolejo FNP [address] [place] [address] PCP - General Family Medicine, EDGER AUTOMATIC 04/03/23
--- OUTSIDE RECORDS SUMMARY | 2024-08-29 13:27 | XMS_ITS | Encounter Summary ---
Author Organization [facility] [place] [address] Care Team Providers Care Netbackup Engineer Name Role Phone Jaleel, Tylor HAY Primary Care Provider +1- [phone] Encounter Details Date Type Department Care Team (Late st Contact Info) Description 05/27/2024 Lab Requisition [facility] - Main Lab [address] [facility] [place] [address] Jose Angel Frazier PA [address] [place] [address] Calculus of kidney; Urinary tract [...] Urine No growth 05/28/2024 11:14 AM EST [facility] LAB Urine Urine specimen obtained by clean catch procedure / Unknown 05/27/2024 11:45 AM EST 05/27/2024 1:16 PM EST us Jose Angel [facility] MICROBIOLOGY - GENERAL ORD ERABLES Final Result [facility] [address] [place] [address], documented in this encounter Visit Diagnoses Diagnosis Calculus of kidney Urinary tract infection, site not specified documented in this encounter Care Teams Netbackup Engineer Relationship Specialty Start Date End Date Jacek Marmolejo NP [address] [place] [address] PCP - General Nurse Practitioner 05/27/24 documented as of this encounter
--- OUTSIDE RECORDS SUMMARY | 2024-08-29 13:27 | XMS_ITS | Clinical Summary ---
Author Organization [facility] Address [address] [place] [address] Phone Care Team Providers Care Concrete Craftsman Name Role Phone Jacek Marmolejo NP Primary Care Provider +1- [phone] Allergies Active Allergy Reactions Criticality Noted Date [...] Description 06/07/2024 9:05 AM EST Anesthesia Event [facility] [place] [address] [place] [phone] Jose De Jesus Angeles MD 06/07/2024 9:00 AM EST - 06/07/2024 9:45 AM EST Surgery [facility] OR [address] [place] [phone] Ramu Noble MD ESWL-LEFT [[id number] (CPT??)] 06/07/2024 7:18 AM EST - 06/07/2024 10:45 AM EST Hospital Encounter [facility] Main OR [address] [place] [phone] Ramu Noble MD Discharge Disposition: Home or Self Care from Last 3 Months Surgical History Surgery [...] Procedure Name Priority Date/Time Associated Diagnosis Comments IA LITHOTRIPSY EXTRACORPOREAL SHOCK WAVE 06/07/2024 9:05 AM EST Calculus of kidney from Last 3 Months Insurance MEDICAID - [place] Care Teams Concrete Craftsman Relationship Specialty Start Date End Date Jacek Marmolejo NP [address] [place] [address] PCP - General Nurse Practitioner 05/27/24
== END 2024-08-29 13:09 | disposition home or self-care (01) ==
LOC: HO.HOS 12:51
PROVIDERS: Visit Provider Orthopaedic Surgery
DX: M54.50 Low back pain, unspecified (principal); M79.605 Pain in left leg; M25.562 Pain in left knee
CPT/HCPCS: 99213

== ENCOUNTER → 2024-08-29 12:50 | Outpatient (BNVA) | payer MEDICAID, SELFPAY | PROVIDERS: Visit Provider Orthopaedic Surgery | DX: M54.50 Low back pain, unspecified (principal); M79.605 Pain in left leg; M25.562 Pain in left knee | CPT/HCPCS: 99212 ==

== ENCOUNTER → 2024-09-04 18:45 | Outpatient (BNV) | payer MEDICAID, SELFPAY | PROVIDERS: Visit Provider Radiology Diagnostic Radiology | DX: M51.26 Other intervertebral disc displacement, lumbar region (principal); M47.816 Spondylosis without myelopathy or radiculopathy, lumbar region; M99.63 Osseous and subluxation stenosis of intervertebral foramina of lumbar region | CPT/HCPCS: 72148 ==

== ENCOUNTER 2024-09-04 18:47 | Outpatient (REF) | payer MEDICAID, SELFPAY ==
--- NOTE | ~2024-09-04 | MR_ITS ---
EXAMINATION: MR LUMBAR SPINE WITHOUT CONTRAST CLINICAL INFORMATION: Low back pain, unspecified. COMPARISON: None available. TECHNIQUE: MRI of the lumbar spine was obtained using routine sequences without contrast. FINDINGS: Last rib-bearing vertebra labeled T12. No bone marrow STIR signal abnormality. Decreased disc signal at L4-5 and to a lesser extent L3-4. There is a focal hyperintense T2 signal in the posterior intervertebral disc L4-5 likely focal annular fissure. There is normal alignment. The conus medullaris ends at the superior endplate of L1 with normal signal. There is hyperintense STIR signal at the inter posterior spinous processes ligamentous, L3-4 and to a lesser extent L4-5. T12-L1: No disc herniation. No neuroforamina stenosis. L1-2: Broad-based disc bulging. No compression upon neural elements. L2-3: Broad-based disc bulging. Reduced AP diameter of the thecal sac and neuroforamina. No compression upon neural elements. L3-4: Broad-based disc bulging. Facet joint and ligamentum flavum hypertrophy. Reduced AP diameter of the thecal sac and neuroforamina abutting likely encroaching the exiting nerve roots of L4 and L3. L4-5: Central broad-based disc herniation abutting the L5 nerve roots on the lateral recesses. Facet joint hypertrophy. Bilateral neuroforamina narrowing encroaching the L4 exiting nerve roots. L5-S1: Broad-based disc bulging. Facet joint hypertrophy. Prominent epidural fat in a circumferential fashion resulting in reduced AP diameter of the thecal sac. There is bilateral neuroforamina narrowing. No prevertebral compartment hematoma, mass or fluid collection. MR/MR lumbar spine wo con IMPRESSION: Central broad-based disc herniation at L4-5 abutting likely encroaching L5 exiting nerve roots. Multilevel spondylosis resulting in central spinal canal stenosis at L3-4 and bilateral neuroforamina narrowing at L3-4 L4-5 and L5-S1 encroaching the exiting nerve roots. 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 Electronically signed by: Derick Shearer MD 09/05/2024 07:29 AM EDT
--- OUTSIDE RECORDS SUMMARY | 2024-09-04 18:49 | XMS_ITS | Encounter Summary ---
Author Organization [place] [address] Care Team Providers Care Manager Cash Name Role Phone Jaleel, Tylor HAY Primary Care Provider +1- [phone] Encounter Details Date Type Department Care Team (Late st Contact Info) Description 05/27/2024 Lab Requisition [facility] - Main Lab [address] [facility] [place] [address] Jose Angel Frazier PA [address] [place] [address] Calculus of kidney; Urinary tract [...] Final Result [facility] [address] [place] [address], documented in this encounter Visit Diagnoses Diagnosis Calculus of kidney Urinary tract infection, site not specified documented in this encounter Care Teams Manager Cash Relationship Specialty Start Date End Date Jacek Marmolejo NP [address] [place] [address] PCP - General Nurse Practitioner 05/27/24 documented as of this encounter
--- OUTSIDE RECORDS SUMMARY | 2024-09-04 18:49 | XMS_ITS | Encounter Summary ---
Author Organization [facility] Address [address] [place] [address] Care Team Providers Care Wine Maker Name Role Phone Jacek Marmolejo PIPE AND BOILER COVERS SUPERVISOR Primary Care Prov ider Encounter Details Date Type Department Care Team ([facility] st Contact Info) Description 09/03/2024 9:20 AM EDT Office Visit [address] [phone] Kerry Martinez LPN [phone] [place] [address] Norma West [address] [place] [address] Social History Tobacco Use Types Packs/Day Years [...] Sign Reading Time Taken Comments Blood Pressure 132/92 09/03/2024 9:41 AM EDT Pulse 72 09/03/2024 9:41 AM EDT Temperature - - Respiratory Rate - - Oxygen Saturation - - Inhaled Oxygen Concentration - - Weight - - Height - - Body Mass Index - - documented in this encounter Plan of Treatment Upcoming Encounters Date Type Department Care Team (Late st Contact Info) Description 10/01/2024 9:40 AM EDT Office Visit [facility] [address] [place] [address] Kerry Martinez LPN [phone] [place] [address] Norma West [address] [place] [address] documented as of this encounter Goals Goal Patient Goal Type Associated Problems Recent Progress Patient-Stated? Author Blood Pressure < 130/80 Blood Pressure 132/92( 9:41 AM EDT) No Kerry Martinez LPN Hypertension: Decrease sodium intake General Improving(07/17 2:35 PM PDT) No Kerry Martinez LPN documented as of this encounter Visit Diagnoses Not on filedocumented in this encounter Additional Health Concerns Assessment Noted Time PHQ-9 Depression Total Score: 0 05/23/19 10:12 AM PST documented as of this encounter Care Teams Wine Maker Relationship Specialty Start Date End Date Jacek Marmolejo FNP [address] [place] [address] PCP - General Family Medicine, ASSET CARD CLERK 04/03/23 documented as of this encounter
--- OUTSIDE RECORDS SUMMARY | 2024-09-04 18:50 | XMS_ITS | Clinical Summary ---
Author Organization [facility] Address [address] [place] [address] Care Team Providers Care Elementary Spanish Teacher Name Role Phone JaleelJacek [facility] Primary Care Prov ider Source Comments [...] Hives 03/16/2023 Medications meloxicam (MOBIC) 7.5 mg tabletIndications :Numbness and tingling of left hand,Chronic pain of left knee Take 1 Tablet by mouth once daily 90 Tablet 1 5 Active blood pressure monitorIndication s:Essential hypertension Dispense one automated BP monitor, to be used daily and prn, length of need 99 years 1 Kit 1 5 Active sodium chloride (OCEAN) 0.65 % nasal sprayIndications: Epistaxis Place 1 [place] into the nostril(s) as needed for congestion 44 mL 5 5 Active amlodipine-valsar escobar (EXFORGE) 5-320 mg per tabletIndications :Essential hypertension Take 1 Tablet by mouth once daily 90 Tablet 1 5 Active omeprazole (PRILOSEC) [address] capsuleIndication s:Chronic gastritis without bleeding, unspecified gastritis type Take 1 Capsule by mouth every morning before breakfast 90 Capsule 1 5 Active atorvastatin (LIPITOR) 20 mg tablet Take 1 Tablet by mouth nightly at bedtime 90 Tablet 1 5 Active gabapentin (NEURONTIN) 300 mg capsuleIndication s:Numbness and tingling of left hand,Chronic pain of left knee Take 1 Capsule by mouth 2 (two) times daily 180 Capsule 1 Active Active Problems Problem Noted Date Diagnosed Date Essential hypertension 01/16/2024 Hyperlipidemia 04/06/2023 Encounters Date Type Department Care Team Description 09/03/2024 9:20 AM EDT Office Visit [address] [phone] Kerry Martinez LPN Vasylyshyn, Oksana 08/06/2024 9:20 AM EDT Office Visit [address] [phone] Kerry Martinez LPN [place], Diana BP check (Primary Dx) 07/17/2024 1:00 PM EDT Office Visit [address] [phone] Kerry Martinez LPN BP check (Primary Dx) [...] Pulse 72 09/03/2024 9:41 AM EDT Temperature 37 ??C (98.6 ??F) [...] Description 10/01/2024 9:40 AM EDT Office Visit [facility] [address] [place] [address] Kerry Martinez LPN [phone] [place] [address] Norma West [address] [place] [address] Health Maintenance Due Date Last Done Comments Anxiety Screening 1984 HIV Screening 10/31/1999 Imm-DTaP/Tdap/Td (1 - Tdap) 10/31/2003 Imm-Hepatitis B (1 of 3 - 19 + 3-dose series) 10/31/2003 Mni-[id number]-94 ( season) 2023 Imm-Influenza (#1) 2023 Annual Wellness (Adult): Indicated (All Coverage) 04/04/2024 04/04/2023 Lipid Screening 03/19/2025 03/19/2024, 04/04/2023 Tobacco Screening 05/23/2025 05/23/2024 Diabetes Screening 03/19/2027 03/19/2024, 1 05/20/2023, 04/04/2023, Additional history exists Hepatitis C Screening Completed 04/04/2023 Alcohol and Drug Screen Completed 05/23/2024, 01/15 Depression Annual Screen Completed 05/23/2024 Goals Goal Patient Goal Type Associated Problems Recent Progress Patient-Stated? Author Blood Pressure < 130/80 Blood Pressure 132/92( 025 9:41 AM EDT) No Kerry Martinez LPN [...] 3:00 AM EST) 06/18/2024 3:00 AM EST Jacek Velázquezourt SUBJECT SCIENTIFIC RESEARCH SCAN REFERRAL Fi nal Result * IMAGING SCANNED DOCUMENT (06/17/2024 3:00 AM EST) 06/17/2024 3:00 AM EST Jacek Velázquezourt SUBJECT SCIENTIFIC RESEARCH SCAN IMAGING Fi nal Result * HEMOGLOBIN GLYCOSYLATED A1C (03/19/2024 5:01 PM EST) HEMOGLOBIN A1C 5.4 <5.7 % of total Hgb [facility] Comment: For the purpose of screening for the presence of diabetes: <5.7% ? Consistent with the absence of diabetes 5.7-6.4% ?Consistent with increased risk for diabetes ?(prediabetes) > or =6.5% ??Consistent with diabetes This assay result is consistent with a decreased risk of diabetes. Currently, no consensus exists regarding use of hemoglobin A1c for diagnosis of diabetes in children. According to [place] Diabetes Association (ADA) guidelines, hemoglobin A1c <7.0% represents optimal control in non- diabetic patients. Different metrics may apply to specific patient populations. Standards of Medical Care in Diabetes(ADA). ?? Blood Blood / Unknown 03/19/2024 5 :01 PM EST 03/19/2024 5:01 PM EST Narrative [facility] - 03/20/2024 7:36 AM EST FASTING:NO Jacek [facility] - BLOOD DRAW E dited Result - Final [facility] [address] [place] [id number], [employer] [address] [place] [phone] * (ABNORMAL) LIPID PANEL (03/19/2024 5:01 PM EST) CHOLESTEROL, TOTAL 182 <200 mg/dL [facility] HDL CHOLESTEROL 46 > OR = 40 mg/dL [employer] TRIGLYCERIDES 459(H) <150 mg/dL [facility] Comment: If a non-fasting specimen was collected, consider repeat triglyceride testing on a fasting specimen if clinically indicated. Naman et al. J. of Clin. Lipidol. 2015;9:129-169. LDL-CHOLESTEROL See Note [facility] Comment: LDL cholesterol not calculated. Triglyceride levels [...] LDL-C. Juan HECK et al. FORD. 2013;310(19): 5502-0922 (http://education.Worktopia.[facility]/faq/TYA977) CHOL/HDLC RATIO 4.0 <5.0 (calc) [employer] NON-HDL CHOLESTEROL 136(H) <130 mg/dL (calc) [employer] Comment: For patients with diabetes plus 1 major ASCVD risk factor, treating to a non-HDL-C goal of <100 mg/dL (LDL-C of <70 mg/dL) is considered a therapeutic option. Blood Blood / Unknown 03/19/2024 5 :01 PM EST 03/19/2024 5:01 PM EST Narrative [facility] - 03/20/2024 7:36 AM EST FASTING:NO Jacek Marmolejo [facility] - BLOOD DRAW F inal Result [facility] [address] [place] [address], [employer] [address] [place] [phone] * HEPATITIS C AB W/RFLX HCV RNA, QT, RT PCR (04/04/2023 2:10 PM EST) HEPATITIS C ANTIBODY NON-REACT NAYELI NON-REACT NAYELI [employer] Comment: HCV antibody was non-reactive. There is no laboratory evidence of HCV infection. In most cases, no further action is required. However, if recent HCV exposure is suspected, a test for HCV RNA (test code 92426) is suggested. For additional information please refer to http://education.InVisM.[facility]/faq/CLJ29b5 (This link is being provided for informational/ educational purposes only.) Blood Blood / Unknown 04/04/2023 2 :10 PM EST 04/04/2023 2:12 PM EST Narrative [facility] - 04/05/2023 2:35 PM EST NON FASTING FASTING:NO Jacek Marmolejo [facility] - BLOOD DRAW E dited Result - Final [facility] [address] [address], [facility] [address] [place] [address] from Last 3 Months or Most Recently Relevant to Health Maintenance Insurance [employer] Care Teams Elementary Spanish Teacher Relationship Specialty Start Date End Date Jacek Marmolejo FNP [address] [place] [address] PCP - General Family Medicine, HIGHWAY MAINTENANCE CREW WORKER 04/03/23
--- OUTSIDE RECORDS SUMMARY | 2024-09-04 18:50 | XMS_ITS | Clinical Summary ---
Author Organization [facility] Address [address] [place] [address] Phone Care Team Providers Care Aquatics Director Name Role Phone Jacek Marmolejo NP Primary Care Provider +1- [phone] Allergies Active Allergy Reactions Criticality Noted Date [...] Anesthesia Event [facility] [place] [address] [place] [phone] Jose De Jesus Angeles MD 06/07/2024 9:00 AM EST - 06/07/2024 9:45 AM EST Surgery [facility] [place] [address] [place] [phone] Ramu Noble MD ESWL-LEFT [[id number] (CPT??)] 06/07/2024 7:18 AM EST - 06/07/2024 10:45 AM EST Hospital Encounter [facility] [place] [address] [place] [phone] Ramu Noble MD Discharge Disposition: Home or [...] Procedure Name Priority Date/Time Associated Diagnosis Comments RI LITHOTRIPSY EXTRACORPOREAL SHOCK WAVE 06/07/2024 9:05 AM EST Calculus of kidney from Last 3 Months Insurance MEDICAID - [place] Care Teams Aquatics Director Relationship Specialty Start Date End Date Jacek Marmolejo NP [address] [place] [address] PCP - General Nurse Practitioner 05/27/24
--- OUTSIDE RECORDS SUMMARY | 2024-09-04 18:50 | XMS_ITS ---
Author Organization [facility] Address [facility] [address] [place] [address] Care Team Providers Care Experience Planning Strategist Name Role Phone Jacek Marmolejo [facility] Primary Care Prov ider SA[facility] Program Status:Enrolled (Active) Start date:07/17/2024 Enrollment date:07/17/2024 Case Team Name Relationship Phone Kerry Martinez LPN(Responsible Staff) [phone] Continued Care and Services Coordination
--- OUTSIDE RECORDS SUMMARY | 2024-09-04 18:50 | XMS_ITS | Data Portability ---
Author Organization [place] - [facility], Allergy Address [address] [place] [phone] Care Team Providers Care Impact Retail Service Merchandiser Name Role Phone JACKIEFEI Primary Care Provider [...] mcg/actua tion nasal spray,tennille pension 2024 025 [facility][id number], [address] [place], [address], 06/19/2024 10:51:23 Patient TargetsNo targets recorded. Patient [...] Organization Details Recorded Time Breath smells unpleasant 70285572 Active 2024 MOY STEPHENSON PA-C [address] [address], [place], [phone], [facility] - [facility] 10:48:21 Amygdalolit h 0979345 Active 2024 MOY STEPHENSON PA-C [address] [address], [place], [address], [facility] - [facility] 10:48:28 Chronic sore throat 457709747 Active 2024 MOY STEPHENSON PA-C [address] [place], [address], [facility] - [facility] 5 10:48:36 Chronic tonsillitis 45101867 Active 2024 MOY STEPHENSON PA-C [address] [address], [place], [phone], [facility] - [facility] [place] 10:48:53 Chronic rhinitis 26527367 Active 2024 MOY STEPHENSON PA-C [address] [facility], [facility], [address], [facility] - [facility] [place] 10:50:43 Mixed conductive AND sensorineur al hearing loss 66762228 Active 2024 Ramona leigh, [place] - [facility] 15:38:24 Conductive hearing loss 11574080 Active 2024 Ramona leigh, [place] - [facility] 15:38:24 Tinnitus of right ear 6004154837586 Active 2024 MAUDE LIVE PA-C [address] [facility],[address], [place], [address], [facility] - [facility] [place] 16:46:36 Problem Notes None recorded. Procedures Surgical History Date Name Laterality Status Provider Name and Address Organization Details Recorded Time 5 Air & Bone Audio - 97940 completed Lala Musa MD - [facility] 07/11/2024 16:06:51 5 Tymps & Reflexes - 42125 completed Lala Musa [facility] [place] [facility] 07/11/2024 16:07:06 Imaging Results Imaging Date Name Status LastModified by Organiz ation Details LastModified Time 07/12/2024 audiogram completed BAR[facility] Information no t available 07/12/2024 09:20:28 Procedure Notes None recorded. Medical Equipment None Reported. Allergies Allergen ID Allergen Name Allergen Category Reaction Reaction Severity Criticality Documentation Date Start Date Code Code System Note Provider Name and Address Organization Details Recorded Time 659384 Product containin g penicilli n (product) medicatio n Not available Not available Not available 06/19/2024 06853 8001 SNOMED MOY STEPHENSON PA-C [address] [facility], [place], [address], [facility] - [facility] 5 10:35:52 Medications Name Sig Start Date Stop [...] Updated DateTime 06/19/2024 170.18 cm 31 kg/m2 14833.29 g Haley Muniz MD - [facility] 06/19/2024 10:04:02 Date Recorded Body height Body mass index (BMI) Body weight Provider Name and Address Organization Details Last Updated DateTime 07/11/2024 170.18 cm 31 kg/m2 42946.29 g Ramona Paul MD - [facility] 07/11/2024 15:38:39 Social History None recorded. Functional Status None recorded. Mental Status None recorded. Family History Nothing Reported. Medical History Condition Response Hypertension Y Past Encounters Encounter ID Performer Location Encounter Start Date Encounter Closed Date Diagnosis/Indication Diagnosis SNOMED-CT Code Diagnosis ICD10 Code Diagnosis Note [id number] MOY STPEHENSON PA-C [facility] [address] [place] [address] 06/19/2024 09:43:52 06/19/2024 10:45:02 Breath smells unpleasant 70331703 R19.6 Amygdalolith 3544380 J35 .8 Chronic sore throat 2754 73466 J31.2 Chronic tonsillitis 9097 9004 J35.01 Chronic rhinitis 5229667 6 J31.0 [id number] MAUDE LIVE PA-C [facility] [address] [place] [address] 07/11/2024 15:30:44 07/11/2024 16:37:20 Mixed conductive AND sensorineural hearing loss 20910374 H90.8 [facility]{{Norm al Normal through 2 kHz [...] hermetic seal}} Tinnitus of right ear 48 55295094 108 H93.11 Health Concerns Section Related Observation LastModified by Organization Detai ls LastModified Time None Recorded Concern Status LastModified by Organization Details LastModified Time None Recorded Advance Directives Directive None Recorded Payers Insurance Date Sequence Insurance Name Policy Number Policy Aguilera Covered Member ID Aguilera Member ID Guarantor Name 07/11/2024 1 [place] [id number] [employer] Notes Date Note Type Note Provider Name [...] break through acid reflux. MOY STEPHENSON PA-C [address] [place] [address], [phone], [place] - [facility] 06/19/2024 10:52:38 07/11/2024 text/html 38yo sri lankan-speaking male presents for hearing evaluation. He reports gradual right-sided hearing loss for many years and constant right-sided ringing for 2 years. He endorses intermittent yellow waxy right ear drainage. Denies ear pain, ear infections or ear surgeries. 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 No family history of hearing loss. JOHN GERONIMO MD [address] [place] [address], [phone], [place] - [facility] 07/12/2024 10:11:48
== END 2024-09-04 18:48 | disposition home or self-care (01) ==
LOC: HO.MRI 18:47
PROVIDERS: Visit Provider Orthopaedic Surgery
DX: M79.605 Pain in left leg (principal); M54.50 Low back pain, unspecified
CPT/HCPCS: 72148

== ENCOUNTER 2024-10-01 07:32 | Outpatient (AMB) | payer MEDICAID, SELFPAY ==
--- OUTSIDE RECORDS SUMMARY | 2024-10-01 07:35 | XMS_ITS | Clinical Summary ---
Author Organization [facility] Address [address] [place] [address] Care Team Providers Care Clinical Office Technician Name Role Phone JaleelJacek [facility] Primary Care Prov ider Source Comments [...] 89 years 1 Kit 1 5 Active amlodipine-valsa rtan (EXFORGE) 5-320 mg [...] times daily 180 Capsule 1 5 Active sodium chloride (OCEAN) 0.65 % nasal sprayIndications :Epistaxis Place 1 Echo into the nostril(s) as needed for congestion. 44 mL 5 5 Active sodium chloride (OCEAN) 0.65 % nasal sprayIndications :Epistaxis Place 1 Echo into the nostril(s) as needed for congestion 44 mL 5 5 025 Discontin ued(Reord er (E-Cancel Not Sent)) Active Problems Problem Noted Date Diagnosed Date Essential hypertension 01/16/2024 Hyperlipidemia 04/06/2023 Encounters Date Type Department Care Team Description 09/03/2024 9:20 AM EDT Office Visit [address] [address] Kerry Martinez LPN Vasylyshyn, Oksana BP check (Primary Dx) 08/06/2024 9:20 AM EDT Office Visit [address] [phone] Kerry Martinez LPN [place], Diana BP check (Primary Dx) 07/17/2024 1:00 PM EDT Office Visit [address] [address] Kerry Martinez LPN BP check (Primary Dx) [...] 10/01/2024 9:40 AM EDT Office Visit [facility] [address] [place] [phone] Kerry Martinez LPN [phone] [place] [address] [address] [place] [address] Health Maintenance Due Date Last Done Comments Anxiety Screening 1984 HIV Screening 10/31/1999 Imm-DTaP/Tdap/Td (1 - Tdap) 10/31/2003 Imm-Hepatitis B (1 of 3 - 19 + 3-dose series) 10/31/2003 [id number] ( season) 2023 Annual Wellness (Adult): Indicated (All Coverage) 04/04/2024 04/04/2023 Imm-Influenza (Season Ended) 2024 Lipid Screening 03/19/2025 03/19/2024, 04/04/2023 Tobacco Screening [...] Martinez LPN Hypertension: Decrease sodium intake General On track(09/06/19 3:52 PM PDT) No Kerry Martinez LPN Procedures Procedure Name Priority Date/Time Associated Diagnosis Comments IMAGING SCANNED DOCUMENT 09/26/2024 3:00 AM EDT REFERRAL SCANNED DOCUMENT 09/25/2024 3:00 AM EDT REFERRAL TO EAR, NOSE AND THROAT Routine 09/17/2024 3:00 AM EDT Hearing loss of right ear, unspecified hearing loss type Epistaxis HEMOGLOBIN GLYCOSYLATED A1C Routine 03/19/2024 5:01 PM EST Hyperlipidemia, unspecified hyperlipidemia type LIPID PANEL Routine 03/19/2024 5:01 PM EST Hyperlipidemia, unspecified hyperlipidemia type HEPATITIS C AB W/RFLX HCV RNA, QT, RT PCR Routine 04/04/2023 2:10 PM EST Examination, medical, general from Last 3 Months or Most Recently Relevant to Health Maintenance Results * IMAGING SCANNED DOCUMENT (09/26/2024 3:00 AM EDT) 09/26/2024 3:00 AM EDT Jacek Marmolejo MACHINE PULLER AND LA[employer] SCAN IMAGING Fi nal Result * REFERRAL SCANNED DOCUMENT (09/25/2024 3:00 AM EDT) 09/25/2024 3:00 AM EDT Jacek Haley Jaleel FNP SCAN REFERRAL Fi nal Result * REFERRAL TO ENT (09/17/2024 3:00 AM EDT) 09/17/2024 3:00 AM EDT Jacek Haley Jaleel FNP REFERRAL Fi nal Result * HEMOGLOBIN GLYCOSYLATED A1C (03/19/2024 5:01 PM EST) HEMOGLOBIN A1C 5.4 <5.7 % of total Hgb [facility] Comment: For the purpose of screening for the presence of diabetes: <5.7% ? Consistent with the absence of diabetes 5.7-6.4% ?Consistent with increased risk for diabetes ?(prediabetes) > or =6.5% ??Consistent with diabetes This assay result is consistent with a decreased risk of diabetes. Currently, no consensus exists regarding use of hemoglobin A1c for diagnosis of diabetes in children. According to [place] Diabetes Association (ADA) guidelines, hemoglobin A1c <7.0% represents optimal control in non- diabetic patients. Different metrics may apply to specific patient populations. Standards of Medical Care in Diabetes(ADA). ?? Blood Blood / Unknown 03/19/2024 5 :01 PM EST 03/19/2024 5:01 PM EST Narrative [facility] - 03/20/2024 7:36 AM EST FASTING:NO Jacek Haley Jaleel FNP LAB - BLOOD DRAW E dited Result - Final [facility] [address] [address], [facility] [address] [address] * (ABNORMAL) LIPID PANEL (03/19/2024 5:01 PM EST) CHOLESTEROL, TOTAL 182 <200 mg/dL [facility] HDL CHOLESTEROL 46 > OR = 40 mg/dL [facility] TRIGLYCERIDES 459(H) <150 mg/dL [facility] Comment: If a non-fasting specimen was collected, consider repeat triglyceride testing on a fasting specimen if clinically indicated. Naman et al. J. of Clin. Lipidol. 2015;9:129-169. LDL-CHOLESTEROL See Note [facility] Comment: LDL cholesterol not calculated. Triglyceride levels [...] LDL-C. Juan HECK et al. FORD. 2013;310(19): 4147-2191 (http://education.[employer]/faq/WBS834) CHOL/HDLC RATIO 4.0 <5.0 (calc) [facility] NON-HDL CHOLESTEROL 136(H) <130 mg/dL (calc) [facility] Comment: For patients with diabetes plus 1 major ASCVD risk factor, treating to a non-HDL-C goal of <100 mg/dL (LDL-C of <70 mg/dL) is considered a therapeutic option. Blood Blood / Unknown 03/19/2024 5 :01 PM EST 03/19/2024 5:01 PM EST Narrative [facility] - 03/20/2024 7:36 AM EST FASTING:NO Jacek Marmolejo [facility] LAB - BLOOD DRAW F inal Result [facility] [address] [address], [facility] [address] [address] * HEPATITIS C AB W/RFLX HCV RNA, QT, RT PCR (04/04/2023 2:10 PM EST) [facility] HEPATITIS C ANTIBODY NON-REACT NAYELI NON-REACT NAYELI [facility] [employer] [facility] Comment: HCV antibody was non-reactive. There is no laboratory evidence of HCV infection. In most cases, no further action is required. However, if recent HCV exposure is suspected, a test for HCV RNA (test code 01202) is suggested. For additional information please refer to http://education.[employer]/faq/VSF30l4 (This link is being provided for informational/ educational purposes only.) Blood Blood / Unknown 04/04/2023 2 :10 PM EST 04/04/2023 2:12 PM EST Narrative [facility] [employer] [facility] - 04/05/2023 2:35 PM EST NON FASTING FASTING:NO Jacek LARIOS LAB - BLOOD DRAW E dited Result - Final [facility] [address] [address], [facility] [address] [place] [address] from Last 3 Months or Most Recently Relevant to Health Maintenance Insurance C[employer] Care Teams Clinical Office Technician Relationship Specialty Start Date End Date Jacek Marmolejo FNP [address] [place] [address] PCP - General Family Medicine, HIDE DROPPER 04/03/23
--- NOTE | 2024-10-01 07:44 | MHC.OFFVIS ---
Intake Visit Reasons: OV-Lumbar Spine MRI Review Intake Note: Mehdi is a 38 year old male who presents with complaints of progressively worsening low back pain which radiates down to his left foot. The patient states that at times his left great toe is ?numb?. The patient has been seen by a back specialist while living in the [facility]. The back treatments gave him minimal relief. He also reports intermittent weakness in his left leg. The patient describes his left knee pain as sharp in nature. Most of his left knee pain is along the medial aspect of his knee. He has tried Tylenol, meloxicam and gabapentin which gave him only mild relief. Data Control Assistant Required: Yes Data Control Assistant Language: Romansh Data Control Assistant Name: Bonnie [id number] Allergies Penicillins Allergy (Verified 08/29/24 12:59) rash Medication List - Last Reconciled 10/01/24 by Lavelle Abdullahi MD amlodipine-valsartan 5-320 mg 1 tab PO DAILY atorvastatin 20 mg PO BEDTIME fluticasone propionate 50 mcg/actuation intranasal gabapentin 300 mg PO BID meloxicam 7.5 mg PO DAILY omeprazole 20 mg PO DAILY PFSH Surgical History History of right nephrectomy Social History Are you a primary care clinician to a significant other at home: No Do you presently have visiting nurse or other home services: No Patient Tobacco Use Status: Never used Tobacco Current occupational status: employed Current occupation: construction, left hand dominant Physical Exam Back/Spine/Pelvis Other: Low back examination shows right-sided paraspinal muscle tenderness, pain with range of motion, positive straight leg raise test bilaterally at 70 degrees Results Reviewed Results Reviewed: MRI of the patient's lumbar spine shows ?central broad-based disc herniation abutting the L5 nerve roots? Assessment & Plan Assessment & Plan (1) Low back pain radiating to left leg: Code(s): M54.50 - Low back pain, unspecified; M79.605 - Pain in left leg Category: Medical Plan Mr. Lechuga presents with low back pain which radiates into his left leg due to lumbar stenosis. Thus, I will refer the patient to the Neurosurgery Department here at [facility]. He will contact me prior to that appointment should his symptoms worsen in any way. I spent 22 minutes in reviewing the patient's records and imaging studies, seeing the patient and documenting in the medical record. Coding Level of Care Code Est Pt Level 3 (58035) Complex EM visit Add On G2211 Diagnoses Low back pain radiating to left leg M54.50; M79.605
== END 2024-10-01 07:58 | disposition home or self-care (01) ==
LOC: HO.HOS 07:33
PROVIDERS: Visit Provider Orthopaedic Surgery
DX: M54.50 Low back pain, unspecified (principal); M79.605 Pain in left leg
CPT/HCPCS: 99213

== ENCOUNTER → 2024-10-01 07:32 | Outpatient (BNVA) | payer MEDICAID, SELFPAY | PROVIDERS: Visit Provider Orthopaedic Surgery | DX: M79.605 Pain in left leg (principal); M54.50 Low back pain, unspecified; R20.2 Paresthesia of skin; R53.1 Weakness; M25.562 Pain in left knee | CPT/HCPCS: 99212 ==

== ENCOUNTER 2024-11-08 08:57 | Outpatient (AMB) | payer MEDICAID, SELFPAY ==
--- NOTE | 2024-11-08 09:08 | A.SPINEOV_ITS ---
Vital Signs 11/08/24 09:22 Height 5 ft 8 in Weight 198 lb BMI 30.1 Intake Visit Reasons: low back pain Intake Note: Mr. Lechuga is here today c/o low back pain. Resident Service Coordinator Required: Yes Resident Service Coordinator Name: Tablet Allergies Penicillins Allergy (Verified 11/08/24 09:22) rash Physical Exam Vital Signs: BMI result Body Mass Index 30.1 Assessment & Plan Assessment & Plan (1) Lumbar stenosis with neurogenic claudication: Code(s): M48.062 - Spinal stenosis, lumbar region with neurogenic claudication Category: Medical Plan Dear colleague Thank you for referring Mehdi Lechuga to the office today with a chief complaint of back pain and bilateral leg pain. HPI: This 39-year-old male is complaining of a 2-3 year history of back pain radiating down both legs. The left leg is more affected than the right side. The pain radiates all the way down to the top of his foot and big toe. The pain increases with walking and standing and improves when he sits down or leans over a shopping cart. He denies weakness or numbness. He is taking gabapentin, which is not really helping. He also takes Tylenol and ibuprofen. He has not done any form of injections. PMH: Hypertension, carpal tunnel release, kidney stones Medications: Amlodipine, atorvastatin, gabapentin Allergies: Penicillin gives him severe allergic reaction Social history: . Works in construction. Nonsmoker Physical Exam: Pleasant male. Not in obvious agony. No motor or sensory deficits on exam. Straight leg raise is negative. Radiological Studies: MRI done at [facility] on 09/04/2024 shows congenital spinal stenosis. Importantly there is a central disc bulge at L4-5 compressing the bilateral L5 nerve roots, left more than right. Impression/Plan: This patient is suffering from neurogenic claudication most likely due to the central disc bulge at L4-5 pressing on the bilateral L5 nerve roots. I would like to refer him to Dr. Avila for an L4-5 epidural steroid injection. I will follow-up 3 weeks after the injection is done. Thank you for allowing me to participate in your patients care. total time spent was 50 minutes in counseling ,coordination of plan, personal review of imaging, surgical decision making and subsequent plan Rafat Byrd MD, PhD Spine Fellowship Trained Neurosurgeon Director, [facility] Orders: Referrals Pain Management Referral M48.062 - Spinal stenosis, lumbar region with neurogenic claudication Coding Level of Care Code New Pt Level 4 (18106) Diagnoses Lumbar stenosis with neurogenic claudication M48.062
--- OUTSIDE RECORDS SUMMARY | 2024-11-08 09:16 | XMS_ITS | Clinical Summary ---
Author Organization [facility] Address [address] [place] [address] Care Team Providers Care Outbound Supervisor Name Role Phone Unavailable Primary Care Provider Unavailabl e Encounters Date Type Department Care Team Description 11/05/2024 Population Health Risk Score [facility] (C3) Department [address] [address] Provider, Population Health Generic from Last 3 Months Social History Tobacco Use Types Packs/Day Years Used Date Smoking Tobacco: Never Assessed Sex and Gender Information Value Date Recorded Sex Assigned at Not on file Legal Sex Male 9:33 PM EDT Gender Identity Not on file Sexual Orientation Not on file Plan of Treatment Health Maintenance Due Date Last Done Comments Depression Screening 1984 HIV Screening 1984 Lipid Panel 1984 SDOH Screening 1984 Disability Screening 1984 Alcohol/Substance Use Screening 1996 Tobacco Screening 1996 Family Planning (PISQ) 10/31/1999 HPV Vaccines (1 - Male 3-dos e series) 10/31/1999 Hepatitis C Screening 2002 DTaP/Tdap/Td Vaccines (1 - Tdap) 10/31/2003 Hepatitis B Vaccines (1 of 3 - 19+ 3-dose series) 10/31/2003 COVID-19 Vaccine ( - 2023-2 5 season) 2023 Influenza Vaccine (#1) 2024 Zoster Vaccines (1 of 2) 2034 RSV Patients and Pa tients Aged 60 years or older (1 - 1-dose 75+ series) 10/31/2059 HIB Vaccines Aged Out No longer eligi [...] patient's age to complete this topic Meningococcal Vaccine Aged Out No jaxon sandi eligible based on patient's age to complete this topic Pneumococcal Vaccine: Pediat rics (0 to 5 Years) and At-Risk Patients (6 to 49) Years Aged Out No longer eligible b ased on patient's age to complete this topic RSV under 20 months Aged Out No longe r eligible based on patient's age to complete this topic Rotavirus Vaccines Aged Out No longer eligible based on patient's age to complete this topic
--- OUTSIDE RECORDS SUMMARY | 2024-11-08 09:16 | XMS_ITS | Clinical Summary ---
Author Organization [facility] Address [address] [place] [address] Care Team Providers Care Transit Clerk Name Role Phone Jacek Marmolejo [facility] Primary Care Prov ider Source Comments PLEASE [...] 89 years 1 Kit 1 5 Active amlodipine-valsar escobar (EXFORGE) 5-320 mg per tabletIndications :Essential hypertension Take 1 Tablet by mouth once daily 90 Tablet 1 5 Active atorvastatin (LIPITOR) 20 mg tablet Take 1 Tablet by mouth nightly at bedtime 90 Tablet 1 5 Active gabapentin (NEURONTIN) 300 mg capsuleIndication s:Numbness and tingling of left hand,Chronic pain of left knee Take 1 Capsule by mouth 2 (two) times daily 180 Capsule 1 5 Active sodium chloride (OCEAN) 0.65 % nasal sprayIndications: Epistaxis Place 1 [place] into the nostril(s) as needed for congestion. 44 mL 5 5 Active omeprazole (PRILOSEC) 20 mg capsuleIndication s:Chronic gastritis without bleeding, unspecified gastritis type Take 1 Capsule by mouth every morning before breakfast. 90 Capsule 1 Active Active Problems Problem Noted Date Diagnosed Date Essential hypertension 01/16/2024 Hyperlipidemia 04/06/2023 Encounters Date Type Department Care Team Description 10/22/2024 9:40 AM EDT Office Visit [address] [address] Kerry Martinez LPN Vasylyshyn, Oksana 10/01/2024 9:40 AM EDT Office Visit [address] [phone] Kerry Martinez LPN Vasylyshyn, Oksana 09/03/2024 9:20 AM EDT Office Visit [address] [address] Kerry Martinez LPN Vasylyshyn, Oksana from Last 3 Months Family History Medical [...] Sign Reading Time Taken Comments Blood Pressure 124/76 10/22/2024 9:57 AM EDT Pulse 90 10/22/2024 9:57 AM EDT Temperature 37 C (98.6 F) 03/19/2024 3:56 PM EST Respiratory Rate 16 [...] Care Team (Late st Contact Info) Description 11/28/2024 9:20 AM EDT Office Visit [address] [address] Kerry Martinez LPN [phone] [place] [address] [address] [place] [id number] 12/10/2024 11:20 AM EDT Office Visit [address] [phone] Jacek Marmolejo FNP [address] [place] [address] [address] [place] [address] Health Maintenance Due Date Last Done Comments Anxiety Screening 1984 HIV Screening 10/31/1999 Imm-DTaP/Tdap/Td (1 - Tdap) 10/31/2003 Imm-Hepatitis B (1 of 3 - 19 + 3-dose series) 10/31/2003 [id number]-00 ( season) 2023 Annual Wellness (Adult): Indicated (All Coverage) 04/04/2024 04/04/2023 Imm-Influenza (#1) 2024 Lipid Screening 03/19/2025 03/19/2024, 04/04/2023 Tobacco Screening 05/23/2025 05/23/2024 Diabetes Screening 03/19/2027 03/19/2024, 1 05/20/2023, 04/04/2023, Additional history exists Hepatitis C Screening Completed 04/04/2023 Alcohol and Drug Screen Completed 05/23/2024, 01/15 Depression Annual Screen Completed 05/23/2024 Goals Goal Patient Goal Type Associated Problems Recent Progress Patient-Stated? Author Blood Pressure < 130/80 Blood Pressure 124/76( 025 9:57 AM EDT) No Kerry Martinez LPN Hypertension: Decrease sodium intake General On track(10/24/19 25 10:15 AM PDT) No Kerry Martinez LPN Procedures Procedure Name Priority Date/Time Associated Diagnosis Comments PROCEDURE SCANNED DOCUMENT 10/02/2024 3:00 AM EDT IMAGING SCANNED DOCUMENT 09/26/2024 3:00 AM EDT [...] Recently Relevant to Health Maintenance Results * PROCEDURE SCANNED DOCUMENT (10/02/2024 3:00 AM EDT) 10/02/2024 3:00 AM EDT us Jacek Joséncourt EQUIPMENT TECHNICIAN SCAN PROCEDURES Fi nal Result * IMAGING SCANNED DOCUMENT (09/26/2024 3:00 AM EDT) 09/26/2024 3:00 AM EDT us Jacek Joséncourt EQUIPMENT TECHNICIAN SCAN IMAGING Fi nal Result * REFERRAL SCANNED DOCUMENT (09/25/2024 3:00 AM EDT) 09/25/2024 3:00 AM EDT us Jacek Joséncourt EQUIPMENT TECHNICIAN SCAN REFERRAL Fi nal Result * REFERRAL TO ENT (09/17/2024 3:00 AM EDT) 09/17/2024 3:00 AM EDT Jacek Joséncourt EQUIPMENT TECHNICIAN REFERRAL Fi nal Result * HEMOGLOBIN GLYCOSYLATED A1C (03/19/2024 5:01 PM EST) HEMOGLOBIN A1C 5.4 <5.7 % of total Hgb [facility] [employer] [facility] Comment: For the purpose of screening for the presence of diabetes: <5.7% Consistent with the absence of diabetes 5.7-6.4% Consistent with increased risk for diabetes (prediabetes) > or =6.5% Consistent with diabetes This assay result is consistent with a decreased risk of diabetes. Currently, no consensus exists regarding use of hemoglobin A1c for diagnosis of diabetes in children. According to [place] Diabetes Association (ADA) guidelines, hemoglobin A1c <7.0% represents optimal control in non- diabetic patients. Different metrics may apply to specific patient populations. Standards of Medical Care in Diabetes(ADA). Blood Blood / Unknown 03/19/2024 5 :01 PM EST 03/19/2024 5:01 PM EST Narrative [facility] - 03/20/2024 7:36 AM EST FASTING:NO Jacek Marmolejo [facility] LAB - BLOOD DRAW E dited Result - Final [facility] [address] [address], [email or web address] [facility] [address] [place] [address] * (ABNORMAL) LIPID PANEL (03/19/2024 5:01 PM EST) [facility] Signature CHOLESTEROL, TOTAL 182 <200 mg/dL [employer] [facility] HDL CHOLESTEROL 46 > OR = 40 mg/dL [employer] [facility] TRIGLYCERIDES 459(H) <150 mg/dL [email or web address] [facility] Comment: If a non-fasting specimen was collected, consider repeat triglyceride testing on a fasting specimen if clinically indicated. Naman et al. J. of Clin. Lipidol. 2015;9:129-169. LDL-CHOLESTEROL See Note [facility] [employer] Comment: LDL cholesterol not calculated. Triglyceride levels greater than 400 mg/dL invalidate calculated LDL results. Reference range: <100 Desirable range <100 mg/dL for primary prevention; <70 mg/dL for patients with CHD or diabetic patients with > or = 2 CHD risk factors. LDL-C is now calculated using the Juan-Zackery calculation, which is a validated novel method providing better accuracy than the Friedewald equation in the estimation of LDL-C. Juan SS et al. FORD. 2013;310(19): 5700-4664 (http://education.Th[employer]Track [employer]/faq/PHQ689) CHOL/HDLC RATIO 4.0 <5.0 (calc) [email or web address] [facility] NON-HDL CHOLESTEROL 136(H) <130 mg/dL (calc) [email or web address] [facility] Comment: For patients with diabetes plus 1 major ASCVD risk factor, treating to a non-HDL-C goal of <100 mg/dL (LDL-C of <70 mg/dL) is considered a therapeutic option. Blood Blood / Unknown 03/19/2024 5 :01 PM EST 03/19/2024 5:01 PM EST Narrative [facility] - 03/20/2024 7:36 AM EST FASTING:NO Jacek Marmolejo [facility] LAB - BLOOD DRAW F inal Result Performing Organization Address [facility] Co de Phone Number [facility] [address] [address], [employer] [address] [address] * HEPATITIS C AB W/RFLX HCV RNA, QT, RT PCR (04/04/2023 2:10 PM EST) HEPATITIS C ANTIBODY NON-REACT NAYELI NON-REACT NAYELI [email or web address] [facility] Comment: HCV antibody was non-reactive. There is no laboratory evidence of HCV infection. In most cases, no further action is required. However, if recent HCV exposure is suspected, a test for HCV RNA (test code 14711) is suggested. For additional information please refer to http://education.[employer]/faq/OUA11b7 (This link is being provided for informational/ educational purposes only.) Blood Blood / Unknown 04/04/2023 2 :10 PM EST 04/04/2023 2:12 PM EST Narrative [facility] - 04/05/2023 2:35 PM EST NON FASTING FASTING:NO Jacek [facility] LAB - BLOOD DRAW E dited Result - Final Performing Organization Address [facility] Co de Phone Number [facility] [address] [address], [employer] [address] [address] from Last 3 Months or Most Recently Relevant to Health Maintenance Insurance [employer] Care Teams Transit Clerk Relationship Specialty Start Date End Date Jacek Marmolejo FNP [address] [place] [address] PCP - General Family Medicine, LENS CUTTER 04/03/23
--- OUTSIDE RECORDS SUMMARY | 2024-11-08 09:16 | XMS_ITS | Encounter Summary ---
Author Organization [place] [address] Care Team Providers Care Bindery Production Manager Name Role Phone Jaleel, Tylor NON PROFIT FINANCIAL CONTROLLER Primary Care Provider [phone]- [phone] Encounter Details Date Type Department Care Team (Late st Contact Info) Description 05/27/2024 Lab Requisition [facility] - Main Lab [address] [facility] [place] [address] Jose Angel Frazier, LON [address] [place] [address] Calculus of kidney Social History [...] AM EST) WBC 5.8 4.8 - 10.8 [facility] LAB HEMETOLOGY METHOD 05/27/2024 2:07 PM [facility] LAB RBC 5.70(H) 4.50 - 5.50 M/mcL LAB HEMETOLOGY METHOD 05/27/2024 2:07 PM [facility] LAB Hemoglobin 16.5 13.5 - 17.5 g/dL LAB HEMETOLOGY METHOD 05/27/2024 2:07 PM [facility] LAB Hematocrit 47.6 42.0 - 54.0 % LAB HEMETOLOGY METHOD 05/27/2024 2:07 PM [facility] LAB MCV 83.1 79.0 - 98.0 FL LAB HEMETOLOGY METHOD 05/27/2024 2:07 PM [facility] LAB MCH 28.8 27.0 - 32.0 pcg LAB HEMETOLOGY METHOD 05/27/2024 2:07 PM [facility] LAB MCHC 34.7 32.0 - 37.0 g/dL LAB HEMETOLOGY METHOD 05/27/2024 2:07 PM [facility] LAB RDW 12.4 11.0 - 15.0 % LAB HEMETOLOGY METHOD 05/27/2024 2:07 PM [facility] LAB Platelets 264 130 - 400 K/mcL LAB HEMETOLOGY METHOD 05/27/2024 2:07 PM [facility] LAB MPV 10.9 7.0 - 11.0 FL LAB HEMETOLOGY METHOD 05/27/2024 2:07 PM [facility] LAB NRBC 0.0 <1.0 % LAB HEMETOLOGY METHOD 05/27/2024 2:07 PM [facility] LAB NRBC Absolute 0.00 <0.10 K/mcL LAB HEMETOLOGY METHOD 05/27/2024 2:07 PM [facility] LAB Blood Venous blood specimen / Unknown 05/27/2024 05/27/2024 1:20 PM EST us Jose Angel FORREST LAB BLOOD ORDERABLES Final Res ult [facility] ([facility] [address] [place] [address], documented in this encounter Visit Diagnoses Diagnosis Calculus of kidney documented in this encounter Care Teams Bindery Production Manager Relationship Specialty Start Date End Date Jcaek Marmolejo NP [address] [place] [address] PCP - General Nurse Practitioner 05/27/24 documented as of this encounter
--- OUTSIDE RECORDS SUMMARY | 2024-11-08 09:16 | XMS_ITS | Data Portability ---
Author Organization [place] [facility], Allergy Address [address] [address] Care Team Providers Care Weaver Axminster Name Role Phone JACKIEFEI Primary Care Provider [...] Recommend middle ear evaluation with Dr. Geronimo. [email or web address] Not available 07/11/2024 16:47:19 09/17/2024 09/17/2024 The patient's history, physical exam, audiogram, and tuning fork testing are consistent with a conductive component of right-sided hearing loss secondary to otosclerosis. Today I spoke with the patient using a video Maldivian sealer operator. The pathophysiology of otosclerosis was discussed with the patient, and the stapes brochure discussed in detail. We discussed the available options including the use of amplification as well as surgical options. We discussed laser stapedotomy with vein graft in detail, going over the surgical steps in the brochure. We discussed the 1% risk of partial or complete sensorineural hearing loss as a result of surgery, the 3-4% risk that the hearing will stay the same after surgery, but overall a 95% chance that the patient will experience a significant improvement in the hearing in the operated ear. We discussed the risks of surgery including the risk of bleeding, infection, temporary or permanent taste disturbance, temporary or long-term balance disturbance, tinnitus, or tympanic membrane perforation. We also discussed the need to harvest a small vein graft from the back of the hand to serve as a seal around the base of the prosthesis as it enters the inner ear. We discussed anesthetic options including a general anesthetic versus a local anesthetic with intravenous sedation. After full discussion, the patient would like to proceed with right sided stapes surgery under general anesthesia. I have provided patient with the contact information for my collarette separator. We will begin the scheduling process and see the patient back at the time of surgery. Patient will not require medical clearance from their primary care provider preoperatively. [email or web address] Not available 09/17/2024 08:46:23 10/09/2024 10/09/2024 The patient is doing well postoperatively. The remaining gelfoam was completely removed from the external auditory canal. I prescribed a 10 day course of ciprofloxacin drops for use BID and recommended the patient maintain dry ear precautions for another [address] Geronimo in 6-8 weeks for reevaluation with audiogram as previously scheduled. [email or web address] Not available 10/09/2024 14:34:33 Plan of Treatment Reminders Order Date Submit Date Provider Last Modified By Organization Details Last Modified Time Details Appointments Hearing Test 2024 11:00A M Hearing Test Not available Not available Not available Post Op 2024 11:20A M JOHN GERONIMO MD Not available Not available Not available Lab None recorded. Referral None recorded. Procedures None recorded. Surgeries stapedect emma/stape dotomy w/ reestabli shment of ossicular continuit y (SURG) 2024 025 [email or web address] Not available 09/17/2024 15:10:23 Imaging None recorded. Medication Orders ciproflox acin 0.3 % eye drops 2024 025 [facility][id number], [address] [place], [address], 10/09/2024 14:35:03 Flonase Allergy Relief 50 mcg/actua tion nasal spray,tennille pension 2024 025 [facility][id number], [address] [place], [address], 06/19/2024 10:51:23 Patient TargetsNo targets recorded. Patient InstructionsNo instructions recorded. Reason for Referral None Reported. Results Created Date Observation Date Name Description Value Unit Range Abnormal Flag Note LastModifiedBy Organization Detail LastModifiedTime 07/13/19 audio gram No observ ation record ed. BARCODE Not Available 2024 09:20:28 Result Notes None recorded. Problems Name Problem SNOMED Code Status Onset Date Resolution Date Notes Provider Name and Address Organization Details Recorded Time Breath smells unpleasant 37296071 Active 2024 MOY STEPHENSON PA-C [address] [place] [address], [place], [address], [facility] - [facility] 10:48:21 Amygdalolit h 6344461 Active 2024 MOY STEPHENSON PA-C [address] [place] [address], [address], [facility] - [facility] 10:48:28 Chronic sore throat 156013620 Active 2024 MOY STEPHENSON PA-C [address] [place] [address],[place] [address], [place], [address], [facility] - [facility] 5 10:48:36 Chronic tonsillitis 52393665 Active 2024 MOY STEPHENSON PA-C [address] [facility],[place] [address], [place], [address], [facility] - [facility] 5 10:48:53 Chronic rhinitis 65849253 Active 2024 MOY STEPHENSON PA-C [address] [facility], [address] [facility], [place], [address], [facility] - [facility] 5 10:50:43 Mixed conductive AND sensorineur al hearing loss 08312006 Active 2024 Ramona leigh [place] - [facility] 15:38:24 Tinnitus of right ear 2622767561540 Active 2024 MAUDE LIVE PA-C [address] [facility],[place] [address], [place], [address], [facility] - [facility] 16:46:36 Conductive hearing loss of right ear with normal hearing on left side 2900103241 Active 2024 JOHN GERONIMO MD [address] [facility],[place] [address], [place], [address], [facility] - [facility] 07:38:53 Otosclerosi s 04098321 Active 2024 JOHN GERONIMO MD [address] [facility] [address] [facility], [employer] [place], [address], [facility] - [facility] 08:43:46 Problem Notes None recorded. Procedures Surgical History Date Name Laterality Status Provider Name and Address Organization Details Recorded Time 10/03/19 25 STAPEDECTOMY/STAPED OTOMY W/ REESTABLISHMENT OF OSSICULAR CONTINUITY (SURG) completed Gino Wills [place] - [facility] 10/08/2024 10:06:00 07/12/19 25 [employer] - 73724 completed Lala Musa [place] - [facility] 07/11/2024 16:06:51 07/12/19 25 Tymps & Reflexes - 87449 completed Lala Musa [place] - [facility] 07/11/2024 16:07:06 Imaging Results None recorded. Procedure Notes None recorded. Medical Equipment None Reported. Allergies Allergen ID Allergen Name Allergen Category Reaction Reaction Severity Criticality Documentation Date Start Date Code Code System Note Provider Name and Address Organization Details Recorded Time 198896 Product containin g penicilli n (product) medicatio n Not available Not available Not available 06/19/2024 86320 8001 SNOMED MOY STEPHENSON PA-C [address] [place] [address], [address] [place] [address] - [facility] 10:35:52 Medications Name Sig Start Date Stop Date Status Note LastModified by Organization Details LastModified Time atorvastati n 20 mg tablet TAKE ONE TABLET BY MOUTH AT BEDTIME active Not Available Not Available [...] Not Available Not Available No t Available ciprofloxac in 0.3 % eye drops APPLY 4 DROPS TO THE RIGHT EAR TWICE A DAY FOR 10 DAYS active Not Available Not Available No t Available gabapentin 300 mg capsule TAKE ONE CAPSULE BY MOUTH TWICE DAILY active Not Available Not Available No [...] TAKE ONE TABLET BY MOUTH ONCE DAILY 10/09 completed Not Available Not Available Not Available amlodipine 5 mg-valsarta n 160 mg tablet TAKE ONE TABLET BY MOUTH ONCE DAILY 10/09 completed Not Available Not Available Not Available Vitals Date Recorded Body height Body mass index (BMI) Body weight Provider Name and Address Organization Details Last Updated DateTime 06/19/2024 170.18 cm 31 kg/m2 82535.29 g Haley Muniz [facility] 06/19/2024 10:04:02 Date Recorded Body height Body mass index (BMI) Body weight Provider Name and Address Organization Details Last Updated DateTime 07/11/2024 170.18 cm 31 kg/m2 83325.29 g Ramona Paul [facility] 07/11/2024 15:38:39 Date Recorded Body height Body mass index (BMI) Body weight Provider Name and Address Organization Details Last Updated DateTime 09/17/2024 170.18 cm 31 kg/m2 85331.29 g Maliha Gutierrez [facility] 09/17/2024 08:10:03 Date Recorded Body height Body mass index (BMI) Body weight Provider Name and Address Organization Details Last Updated DateTime 10/09/2024 170.18 cm 31 kg/m2 48938.29 g aRmona Paul [facility] 10/09/2024 13:33:01 Social History None recorded. Functional Status None recorded. Mental Status None recorded. Family History Nothing Reported. Medical History Condition Response Hypertension Y Past Encounters Encounter ID Performer Location Encounter Start Date Encounter Closed Date Diagnosis/Indication Diagnosis SNOMED-CT Code Diagnosis ICD10 Code Diagnosis Note [id number] MOY STEPHENSON PA-C [facility] [address] [address] 06/19/2024 09:43:52 06/19/2024 10:45:02 Breath smells unpleasant 36812126 R19.6 Amygdalolith 6996316 J35 .8 Chronic sore throat 2754 96332 J31.2 Chronic tonsillitis 9097 9004 J35.01 Chronic rhinitis 5678004 6 J31.0 [id number] MAUDE LIVE PA-C [facility] [address] [address] 07/11/2024 15:30:44 07/11/2024 16:37:20 Mixed conductive AND sensorineural hearing loss 35762190 H90.8 Audiologic al evaluation results:Ri ght ear:Modera te raising to mild conductive hearing loss with no measurable word recognitio n.Left ear:Normal hearing with no measurable word recognitio n.SRT and WRS could not be measured due to language barriers. Tympanomet ry:Right Ear:Type ALeft Ear:Type As Acoustic Reflex Testing: Signal to theRight Ear(crosse d):Absent Signal to theRight Ear(uncros sed): Absent Signal to theLeft Ear(crosse d):Absent Signal to theLeft Ear(uncros sed):Absen t Tinnitus of right ear 48 57549112 108 H93.11 [id number] JOHN GERONIMO MD [facility] [address] [address] 09/17/2024 08:05:25 09/17/2024 08:46:21 Conductive hearing loss of right ear with normal hearing on left side 3428836792 H90.11 Otosclerosis 36916263 H8 0.91 [id number] MYO STEPHENSON PA-C [facility] [address] [address] 10/09/2024 13:25:14 10/09/2024 14:21:24 Conductive hearing loss of right ear with normal hearing on left side 1756160790 H90.11 Otosclerosis 83841996 H8 0.91 Postoperative visit 1836 63752 Z48.89 Health Concerns Section Related Observation LastModified by Organization Detai ls LastModified Time None Recorded Concern Status LastModified by Organization Details LastModified Time None Recorded Advance Directives Directive None Recorded Payers Insurance Date Sequence Insurance Name Policy Number Policy Aguilera Covered Member ID Aguilera Member ID Guarantor Name 10/09/2024 1 [place] Mehdibrayden Lechuga [id number] Mehdi Lechuga Notes Date Note Type Note Provider Name and Address Organization Details Recorded Time 06/19/2024 text/html ROS as noted in the HPI 38 year old male presents for evaluation of tonsil stones. Has not tried an otc remedies. Notes chronic rhinitis and nasal congestion. Reports sore throat and halitosis with tonsil stones. No prior allergy testing and denies history of allergic rhinitis. Denies tobacco use. Denies history of chronic tonsillitis. Takes Omeprazole with good improvement in GERD, no break through acid reflux. MOY STEPHENSON PA-C [address] [facility],[address], [address], [facility] - [facility] 06/19/2024 10:52:38 07/11/2024 text/html ROS as noted in the [facility] 38yo greenlandic-speaking male presents for hearing evaluation. He reports gradual right-sided hearing loss for many years and constant right-sided ringing for 2 years. He endorses intermittent yellow waxy right ear drainage. Denies ear pain, ear infections or ear surgeries. 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 No family history of hearing loss. JOHN GERONIMO MD [address] [facility],[address], [address], [facility] - [facility] 07/12/2024 10:11:48 09/17/2024 text/html Patient with right-sided conductive hearing loss in the presence of normal tympanic membrane with absent tympanic reflexes whose exam and audiogram is consistent with otosclerosis. No history of head trauma. No history of prior ear surgery. No family history of early onset hearing loss. Patient reports that the hearing loss occurred suddenly about 3 years ago. 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 Today's visit carried out using video Maldivian sealer operator JOHN GERONIMO MD [address] [facility], [place], [address], [facility] - [facility] 09/17/2024 08:46:40 10/09/2024 text/html ROS as noted in the [facility] 38 year old male presents s/p right laser stapedotomy with vein graft with Dr. Geronimo on 10/02. He is doing well postoperatively without concerns. NUBIA ALONSO MD [address] [facility],[address], [place], [address], [place] - [facility] 10/09/2024 14:43:32
[2024-11-08 09:22] VITALS: BMI 30.1
== END 2024-11-08 09:59 | disposition home or self-care (01) ==
PROVIDERS: PCP Nurse Practitioner Family; Visit Provider Neurological Surgery
DX: M48.062 Spinal stenosis, lumbar region with neurogenic claudication (principal)
CPT/HCPCS: 99204

== ENCOUNTER → 2024-11-08 08:57 | Outpatient (BNVA) | payer MEDICAID, SELFPAY | PROVIDERS: PCP Nurse Practitioner Family; Visit Provider Neurological Surgery | DX: M48.062 Spinal stenosis, lumbar region with neurogenic claudication (principal) | CPT/HCPCS: 99202 ==

== ENCOUNTER 2025-01-28 06:19 | Outpatient (REF) | payer MEDICAID, SELFPAY ==
--- NOTE | ~2025-01-28 | FL_ITS ---
EXAMINATION: FL GUIDANCE ONLY HISTORY: M48.062 - Spinal stenosis, lumbar region with neurogenic claudication COMPARISON: Correlation is made with an MRI of the lumbar spine dated 09/04/2024. TECHNIQUE: Fluoroscopy time: 12.5 seconds. Cumulative Dose: 5.0224 mGy. DAP: 1.6696 Gycm2 Images: 3. FINDINGS: Fluoroscopic spot films of the lumbar spine demonstrate a needle at the L4-5 level from a posterior approach. A small amount of intrathecal contrast is noted. FL/FL guidance in treatment room IMPRESSION: Fluoroscopy during procedure. Please see procedure report for additional information. Electronically signed by: Tera Servin MD 01/28/2025 03:42 PM EDT
--- OUTSIDE RECORDS SUMMARY | 2025-01-28 06:21 | XMS_ITS | Data Portability ---
Author Organization [place] - [facility], [facility] Address [address] [place] [address] Care Team Providers Care Straddle Buggy Operator Name Role Phone JACKIEFEI Primary Care Provider Assessment Encounter Date Assessment Date Assessment LastModified by Organization Details LastModified Time 09/17/2024 09/17/2024 The patient's history, physical exam, audiogram, and tuning fork testing are consistent with a conductive component of right-sided hearing loss secondary to otosclerosis. Today I spoke with the patient using a video [place]ian phlebotomy technologist. The pathophysiology of otosclerosis was discussed with [...] patient with the contact information for my office helper. We will begin the scheduling process and see the patient back at the time of surgery. Patient will not require medical clearance from their primary care provider preoperatively. [email or web address] Not available 09/17/2024 08:46:23 10/09/2024 10/09/2024 The patient is doing well postoperatively. The remaining gelfoam was completely removed from the external auditory canal. I prescribed a 10 day course of ciprofloxacin drops for use BID and recommended the patient maintain dry ear precautions for another [address] Geronimo in 6-8 weeks for reevaluation with audiogram as previously scheduled. [email or web address] Not available 10/09/2024 14:34:33 11/26/2024 11/26/2024 The right ear mccormack s healed well following laser stapedotomy with vein graft. All water and activity precautions are lifted. Audiometric testing today showed improvement in the hearing compared to preoperative audiogram. Patient may follow-up as needed Not available 11/26/2024 12:00:39 12/09/2024 12/09/2024 39 year old male presents for follow up of nasal congestion, chronic rhinitis, and sore throat. On exam, tonsils are 2+ bilaterally and cryptic without exudate or stones. Fiberoptic laryngoscopy demonstrated septal deviation posteriorly to the right and septal spur to the left and mucoid rhinorrhea bilaterally. No masses or lesions were noted. Recommended CT sinus and allergy testing for further evaluation. He will follow-up to review the results. All questions were answered. [email or web address] Not available 12/09/2024 10:19:53 Plan of Treatment Reminders Order Date Submit Date Provider Last Modified By Organization Details Last Modified Time Details Appointments Test Results 30 2024 08:30A Philip PATTON MD Not available Not available Not available Establish ed 15 2024 09:45A M LON FRANCISCO Not available Not available Not available Lab None recorded. Referral None recorded. Procedures allergy testing, skin prick (PROC) 2024 025 [email or web address] Not available 12/09/2024 15:56:48 intraderm al allergy skin testing (PROC) 2024 025 [email or web address] Not available 12/09/2024 15:56:48 pulmonary function test procedure (PROC) 2024 025 [email or web address] Not available 12/09/2024 15:56:48 pulse oximetry (PROC) 2024 025 [email or web address] Not available 12/09/2024 15:56:48 Surgeries stapedect emma/stape dotomy w/ reestabli shment of ossicular continuit y (SURG) 2024 [email or web address] Not available 09/17/2024 15:10:[address], sinuses, w/o contrast 2024 025 [email or web address] [facility] [place], [address], [facility], [place], [address], 12/18/2024 15:41:48 Medication Orders ciproflox acin 0.3 % eye drops 2024 [facility] #[id number], [address] [place], [address], 11/26/2024 10:55:53 Patient TargetsNo targets recorded. Patient InstructionsNo instructions recorded. Reason for Referral None Reported. Results Created Date Observation Date Name Description Value Unit Range Abnormal Flag Note LastModifiedBy Organization Detail LastModifiedTime 11/27/19 audio gram No observ ation record ed. BARCODE Not Available 2024 14:26:28 12/15/19 25 12/13/2024 CT, sinus es, w/o contr ast No observ ation record ed. [email or web address] [facility] [place] [address] [facility], [place], [address], 12/19/2024 16:47:04 12/27/19 andrei metry testi ng* No observ ation record ed. [email or web address] Not Available 2024 10:51:04 Result Notes None recorded. Problems Name Problem SNOMED Code Status Onset Date Resolution Date Notes Provider Name and Address Organization Details Recorded Time Breath smells unpleasant 47702426 Active 2024 MOY STEPHENSON PA-C [address], [address] , [facility] - [facility] 10:48:21 Amygdalolit h 9860890 Active 2024 MOY STEPHENSON PA-C [address], [place], [address], [place] - [facility] 10:48:28 Chronic sore throat 693673207 Active 2024 MOY STEPHENSON PA-C [address], [place], [address], [facility] - [facility] 10:48:36 Chronic tonsillitis 53256670 Active 2024 MOY STEPHENSON PA-C [address], [place], [address], [facility] - [facility] 10:48:53 Chronic rhinitis 05648006 Active 2024 MOY STEPHENSON PA-C [address], [place], [address], [facility] - [facility] 10:50:43 Mixed conductive AND sensorineur al hearing loss 39872418 Active 2024 Ramona leigh [place] - [facility] 15:38:24 Tinnitus of right ear 7604495596276 Active 2024 MAUDE LIVE PA-C [address] [facility] [address], [place], [address], [facility] - [facility] 16:46:36 Conductive hearing loss of right ear with normal hearing on left side 2356200012 Active 2024 JOHN GERONIMO MD [address], [place], [address], [facility] - [facility] 07:38:53 Otosclerosi s 04737777 Active 2024 JOHN GERONIMO MD [address], [place], [address], [facility] - [facility] 08:43:46 Sensorineur al hearing loss of right ear with normal hearing on left side 6750687298 Active 2024 RIKKI CHEEK, AUD 100 [facility] [address], [facility], [address], [place] - [facility] 11:31:37 Nasal congestion 22851519 Active 2024 MOY STEPHENSON PA-C [address] [address], [place], [address], [facility] - [facility] 10:17:32 Perennial allergic rhinitis 630077500 Active 2024 YUMIKO BARBERA [address] [address], [place], [address], [facility] - [facility] 10:48:08 Problem Notes None recorded. Procedures Surgical History Date Name Laterality Status Provider Name and Address Organization Details Recorded Time 12/27/19 Allergy Testing-Full completed TAYLOR BARBER 100 [facility],[address] [address], [place], [address], [facility] - [facility] 12/26/2024 12:11:11 12/10/19 25 FOL_DP completed MOY STEPHENSON PA-C 100 [facility],[address], [address], [facility] - [facility] 12/09/2024 10:19:39 11/27/19 25 Air only Audio - 93456 completed RIKKI CHEEK, AUD 100 [facility],[address] [address], [place], [address], [facility] - [facility] 11/26/2024 11:27:04 10/03/19 25 STAPEDECTOMY/STAPED OTOMY W/ REESTABLISHMENT OF OSSICULAR CONTINUITY (SURG) completed Gino Wills [place] - [facility] 10/08/2024 10:06:00 07/12/19 25 Air & Bone Audio - 84517 completed Lala Musa [place] - [facility] 07/11/2024 16:06:51 07/12/19 25 Tymps & Reflexes - 28996 completed Lala Musa [place] [facility] 07/11/2024 16:07:06 Imaging Results None recorded. Procedure Notes None recorded. Medical Equipment None Reported. Allergies Allergen ID Allergen Name Allergen Category Reaction Reaction Severity Criticality Documentation Date Start Date Code Code System Note Provider Name and Address Organization Details Recorded Time 904916 Product containin g penicilli n (product) medicatio n Not available Not available Not available 06/19/2024 58102 8001 SNOMED MOY STEPHENSON PA-C [address] [place] [address], [address] [place] [address] [facility] 10:35:52 Medications Name Sig Start Date Stop Date Status Note LastModified by Organization Details LastModified Time atorvastati n 20 mg tablet TAKE 1 TABLET BY MOUTH EVERYDAY AT BEDTIME active Not Available Not Available [...] EVERY 6 HOURS NEEDED FOR PAIN, SEVERE 11/26 completed Not Available Not Available Not Available ciprofloxac in 0.3 % eye drops APPLY 4 DROPS TO THE RIGHT EAR TWICE A DAY FOR 10 DAYS 11/26 completed Not Available Not Available Not Available gabapentin 300 mg capsule TAKE ONE [...] EACH NOSTRIL EVERY DAY FOR 30 DAYS 12/26 completed Not Available Not Available Not Available ramipril 10 mg capsule TAKE ONE CAPSULE BY MOUTH ONCE daily 11/26 completed Not Available Not Available Not Available amlodipine 5 mg-valsarta n 320 mg [...] Updated DateTime 09/17/2024 170.18 cm 31 kg/m2 62062.29 g Maliha Gutierrez [place] [facility] 09/17/2024 08:10:03 Date Recorded Body height Body mass index (BMI) Body weight Provider Name and Address Organization Details Last Updated DateTime 10/09/2024 170.18 cm 31 kg/m2 85733.29 g Ramona Paul [place] [facility] 10/09/2024 13:33:01 Date Recorded Body height Provider Name an d Address Organization Details Last Updated DateTime 11/26/2024 170.18 cm BLOSSOM HENDRIX [place] [facility] 11/26/2024 10:55:35 Date Recorded Body height Body mass index (BMI) Body weight Provider Name and Address Organization Details Last Updated DateTime 12/09/2024 170.18 cm 31 kg/m2 06214.29 g Haley Muniz [place] [facility] 12/09/2024 09:29:09 Date Recorded Oxygen saturation Oxygen saturation in Arterial blood by Pulse oximetry Heart rate Body mass index (BMI) Body weight Systolic And Diastolic Systolic And Diastolic Provider Name and Address Organization Details Last Updated DateTime 98 % 98 % 79 /min 31 kg/m2 81377.2 9 g 142/100 mm[Hg] 142/105 mm[Hg] HECTOR HERRERA, [facility] [address], [address], [place] [facility] 13:14:20 Date Recorded Body height Provider Name an d Address Organization Details Last Updated DateTime 12/26/2024 170.18 cm SCAR NG, [facility] [address], [address], [place] - [facility] 12/26/2024 10:37:11 Social History None recorded. Functional Status None recorded. Mental Status None recorded. Family History Nothing Reported. Medical History Condition Response Hypertension Y Past Encounters Encounter ID Performer Location Encounter Start Date Encounter Closed Date Diagnosis/Indication Diagnosis SNOMED-CT Code Diagnosis ICD10 Code Diagnosis IMO Codes Diagnosis Note [id number] MOY STEPHENSON PA-C [facility] [address] [address] 06/19/2024 09:43:52 06/19/2024 10:45:02 Breath smells unpleasant 72384516 R19.6 Amygdalolith 1259285 J35 .8 Chronic sore throat 2754 21386 J31.2 Chronic tonsillitis 9097 9004 J35.01 Chronic rhinitis 3703718 6 J31.0 [id number] MAUDE LIVE PA-C [facility] [address] [address] 07/11/2024 15:30:44 07/11/2024 16:37:20 Mixed conductive AND sensorineural hearing loss 75858167 H90.8 Audiologic al evaluation results:Ri ght ear:Modera [...] sed):Absen t Tinnitus of right ear 48 88319173 108 H93.11 [id number] JOHN GERONIMO MD [facility] [address] [address] 09/17/2024 08:05:25 09/17/2024 08:46:21 Conductive hearing loss of right ear with normal hearing on left side 6158236061 H90.11 80504002 Otosclerosis 74074543 H8 0.91 4528286 [id number] MOY STEPHENSON PA-C [facility] [address] [address] 10/09/2024 13:25:14 10/09/2024 14:21:24 Conductive hearing loss of right ear with normal hearing on left side 5436328492 H90.11 36364855 Otosclerosis 67244089 H8 0.91 6284068 Postoperative visit 1836 12418 Z48.89 [id number] JOHN GERONIMO MD [facility] [address] [address] 11/26/2024 10:46:31 11/26/2024 13:18:13 Otosclerosis 01615372 H80.91 6980994 Sensorineu ral hearing loss of right ear with normal hearing on left side 5674169341 H90.41 60598885 Right Ear:Normal hearing through 4K [place]. [id number] MOY STEPHENSON PA-C [facility] [address] [address] 12/09/2024 09:17:26 12/09/2024 09:52:24 Chronic rhinitis 87712125 J31.0 Amygdalolith 2746176 J35 .8 Nasal congestion 3811553 0 R09.81 [id number] SCAR NG [facility] [address] [place] [address] [address] 12/26/2024 10:02:28 12/26/2024 13:16:43 Perennial allergic rhinitis 116346636 J30.89 095231 Health Concerns Section Related Observation LastModified by Organization Detai ls LastModified Time None Recorded Concern Status LastModified by Organization Details LastModified Time None Recorded Advance Directives Directive None Recorded Payers Insurance Date Sequence Insurance Name Policy Number Policy Aguilera Covered Member ID Aguilera Member ID Guarantor Name 01/27/2025 1 [place] [facility] Mehdibrayden Lechuga [id number] Mehdi Lechuga Notes Date Note Type Note Provider Name and Address Organization Details Recorded Time 09/17/2024 text/html Patient with right-sided conductive hearing [...] construction. Today's visit carried out using video [place]ian phlebotomy technologist JOHN GERONIMO MD 100 [facility],[address], [address], [facility] - [facility] 09/17/2024 08:46:40 10/09/2024 text/html ROS as noted in the HPI 38 year old male presents s/p right laser stapedotomy with vein graft with Dr. Geronimo on 10/02. He is doing well postoperatively without concerns. NUBIA ALONSO MD [address] [facility] [address], [address], [facility] - [facility] 10/09/2024 14:43:32 11/26/2024 text/html Patient is now about 8 weeks status post right-sided laser stapedotomy with vein graft. Patient has done well postoperatively and reports no pain or discharge. Patient reports that the hearing is improved. Today's visit carried out. With video [place]ian phlebotomy technologist JOHN GERONIMO MD 100 [facility],[address], [address], [facility] 11/26/2024 12:00:55 12/09/2024 text/html ROS as noted in the HPI 39 year old male presents for follow up of nasal congestion and chronic rhinitis. He tried Flonase as previously recommended without improvement. Continues to have chronic nasal congestion and rhinitis. He reports that he can see pus in the back of his throat. He was also seen for tonsil stones and sore throat at the previous visit. No prior allergy testing and denies history of allergic rhinitis. Denies tobacco use. Denies history of chronic tonsillitis. Takes Omeprazole with good improvement in GERD, no break through acid reflux. NUBIA ALONSO MD [address] [facility] [address], [place], [address], [facility] - [facility] 12/09/2024 12:39:55
--- OUTSIDE RECORDS SUMMARY | 2025-01-28 06:21 | XMS_ITS | Encounter Summary ---
Author Organization [facility] [place] [address] Care Team Providers Care Plow Holder Name Role Phone Jaleel, Tylor HAY Primary Care Provider [phone]- [phone] Encounter Details Date Type Department Care Team (Late st Contact Info) Description 05/27/2024 Lab Requisition [facility] - Main Lab [address] [facility] [place] [address] Jose Angel Frazier PA [address] [place] [address] Calculus of kidney; Urinary tract [...] Urine No growth 05/28/2024 11:14 AM EST [facility] Urine Urine specimen obtained by clean catch procedure / Unknown 05/27/2024 11:45 AM EST 05/27/2024 1:16 PM EST us [facility] MICROBIOLOGY - GENERAL ORD ERABLES Final Result [facility] [address] [place] [address], documented in this encounter Visit Diagnoses Diagnosis Calculus of kidney Urinary tract infection, site not specified documented in this encounter Care Teams Plow Holder Relationship Specialty Start Date End Date Jacek Marmolejo NP [address] [place] [address] PCP - General Nurse Practitioner 05/27/24 documented as of this encounter
--- OUTSIDE RECORDS SUMMARY | 2025-01-28 06:21 | XMS_ITS | Clinical Summary ---
Author Organization [facility] Address [address] [place] [address] Phone Care Team Providers Care Sleeve Fixer Name Role Phone Jacek Marmolejo NP Primary Care Provider [phone]- [phone] Allergies Active Allergy Reactions Criticality Noted Date [...] mouth 1 (one) time each day. Active Surgical History Surgery Date Site/Laterality Comments OTHER [...] 67 06/07/2024 10:22 AM EST Temperature 36.7 C (98.1 F) 06/07/2024 9:43 AM EST Respiratory Rate 14 06/07/2024 9:43 AM EST [...] of 3 - 19+ 3-dose series) 10/31/2003 HPV Vaccines (1 - 3-dose SCDM series) 10/31/2011 HIV Screening 11/14/2023 Social Influencers of Health Screening 11/14/2023 Depression Screening 04/17/2024 COVID-19 Vaccine ( - season) 2024 Influenza Vaccine (#1) 2024 Hypertension/CHF/CAD Annual BMP Blood Test 03/19/2025 03/19/2024 Cholesterol Screening (Lipid Panel) 12/10/2029 12/10/2024, 03/19/2024, 03/19/2024, Additional history exists RSV Immunization Adult Patients (1 - 1-dose 75+ series) 10/31/2059 Hepatitis C Screening Completed 04/04/2023 HIB Vaccines [...] 5 Years) and At-Risk Patients (6 to 49 Years) Aged Out No longer eligible based on patient's age to complete this topic RSV Immunization Patients Under 20 months Aged Out No longer eligible based on patient's age to complete this topic Varicella Vaccines Aged Out No longer eligible based on patient's age to complete this topic Insurance MEDICAID - [place] Care Teams Sleeve Fixer Relationship Specialty Start Date End Date Jacek Marmolejo NP [address] [place] [address] PCP - General Nurse Practitioner 05/27/24
--- OUTSIDE RECORDS SUMMARY | 2025-01-28 06:21 | XMS_ITS | Clinical Summary ---
Author Organization [facility] Address [address] [place] [address] Care Team Providers Care Gasoline Engine Assembler Name Role Phone Jacek Marmolejo NETWORKING SPECIALIST Primary Care Provider [phone] [phone] Source Comments PLEASE NOTE, if this patient [...] 89 years 1 Kit 1 5 Active gabapentin (NEURONTIN) 300 mg capsuleIndication s:Numbness and tingling of left hand,Chronic pain of left knee Take 1 Capsule by mouth 2 (two) times daily 180 Capsule 1 5 Active sodium chloride (OCEAN) 0.65 % nasal sprayIndications: Epistaxis Place 1 [place] into the nostril(s) as needed for congestion. 44 mL 5 5 Active amlodipine-valsar escobar (EXFORGE) 5-320 mg per tabletIndications :Essential hypertension TAKE 1 TABLET BY MOUTH ONCE DAILY 90 Tablet 1 5 Active atorvastatin (LIPITOR) 20 mg tablet Take 1 Tablet by mouth nightly at bedtime. 90 Tablet 1 5 Active omeprazole (PRILOSEC) [address] capsuleIndication s:Chronic gastritis without bleeding, unspecified gastritis type Take 1 Capsule by mouth every morning before breakfast. 90 Capsule 1 Active Active Problems Problem Noted Date Diagnosed Date Lumbar stenosis with neurogenic claudication Overview (12/10/2024): Goes to [place] Sensorineural hearing loss (SNHL) of right ear 0 11/27/2024 Overview (11/27/2024): 11/26/2024 - E[place] - Dx: Otosclerosis of Right ear; Sensorineural hearing loss of right ear with unrestricted hearing of left ear Essential hypertension 01/16/2024 Hyperlipidemia 04/06/2023 Encounters Date Type Department Care Team Description 01/06/2025 9:20 AM EDT Office Visit [address] [address] Nimco Baker, Norma Ellis 12/13/2024 Results Follow-Up [address] [address] Jacek Marmolejo FNP 12/10/2024 11:20 AM EDT Office Visit [address] [address] Jacek Marmolejo FNP Vasylyshyn, Oksana from Last 3 Months Family [...] Sign Reading Time Taken Comments Blood Pressure 123/82 12/10/2024 11:24 AM EDT Pulse 77 12/10/2024 11:24 AM EDT Temperature 36.7 C (98.1 F) 12/10/2024 11:24 AM EDT Respiratory Rate 18 12/10/2024 11:24 AM EDT Oxygen Saturation 98% 03/19/2024 3:56 PM EST Inhaled Oxygen Concentration - - Weight 90.7 kg (200 lb) 12/10/2024 11:24 AM EDT Height 174 cm (5' 8.5 ) 12/10/2024 11:24 AM EDT Body Mass Index 29.96 12/10/2024 11:24 AM EDT Plan of Treatment Upcoming Encounters Date Type Department Care Team (Late st Contact Info) Description 01/30/2025 1:00 PM EDT Office Visit [facility] [address] [place] [phone] Jass Dorado RHD [address] [place] [address] 02/03/2025 10:40 AM EDT Office Visit [facility] [address] [place] [address] Kerry Martinez LPN [phone] [place] [address] Norma West [address] [place] [address] Health Maintenance Due Date Last Done Comments HIV Screening 10/31/1999 Imm-DTaP/Tdap/Td (1 - Tdap) 10/31/2003 Imm-Hepatitis B (1 of 3 - 19 + 3-dose series) 10/31/2003 Imm-HPV (1 - 3-dose SCDM series) 10/31/2011 [id number] ( - 2024- season) 2024 Imm-Influenza (#1) 2024 Annual Wellness (Adult): Indicated (All Coverage) 12/10/2025 12/10/2024, 04/04/2023 Anxiety Screening 12/10/2025 12/10/2024 Lipid Screening 12/10/2025 12/10/2024, 1206/2023, 04/04/2023 Tobacco Screening 12/10/2025 12/10/2024 Diabetes Screening 03/19/2027 03/19/2024, 1 05/20/2023, 04/04/2023, Additional history exists Hepatitis C Screening Completed 04/04/2023 Alcohol and Drug Screen Completed 12/11/19, 05/23/2024, 01/16/2024 Depression Annual Screen Completed 12/10/2024 Goals Goal Patient Goal Type Associated Problems Recent Progress Patient-Stated? Author Blood Pressure < 130/80 Blood Pressure 123/82( 025 11:24 AM EDT) No Kerry Martinez LPN Hypertension: Decrease sodium intake General On track(10/24/19 10:15 AM PDT) No Kerry Martinez LPN Procedures Procedure Name Priority Date/Time Associated Diagnosis Comments OTHER ORDERS SCANNED DOCUMENT 01/07/2025 3:00 AM EDT ECG ROUTINE ECG W/LEAST 12 LDS TRCG ONLY W/O I&R Routine 01/06/2025 10:53 AM EDT SOBOE (shortness of breath on exertion) LIPID PANEL Routine 12/10/2024 12:14 PM EDT Hyperlipidemia, unspecified hyperlipidemia type REFERRAL SCANNED DOCUMENT 11/26/2024 3:00 AM EDT HEMOGLOBIN GLYCOSYLATED A1C Routine 03/19/2024 5:01 PM EST Hyperlipidemia, unspecified hyperlipidemia type HEPATITIS C AB W/RFLX HCV RNA, QT, RT PCR Routine 04/04/2023 2:10 PM EST Examination, medical, general from Last 3 Months or Most Recently Relevant to Health Maintenance Results * OTHER ORDERS SCANNED DOCUMENT (01/07/2025 3:00 AM EDT) 01/07/2025 3:00 AM EDT Tatyyevgeniy Padilla NETWORKING SPECIALIST SCAN OTHER ORDERS Final Resu lt * ECG ROUTINE ECG W/LEAST 12 LDS TRCG ONLY W/O I&R (01/06/2025 10:53 AM EDT) Jacek Marmolejo NETWORKING SPECIALIST ECG Final Res ult * (ABNORMAL) LIPID PANEL Routine (12/10/2024 12:14 PM EDT) CHOLESTEROL, TOTAL 170 <200 mg/dL 12/11/2024 8:50 AM EDT [employer] [facility] HDL CHOLESTEROL 51 > OR = 40 mg/dL 12/11/2024 8:50 AM EDT [facility] TRIGLYCERIDES 343(H) <150 mg/dL 12/11/2024 8:50 AM EDT [facility] LDL-CHOLESTEROL 78 mg/dL (calc) 12/11/2024 8:50 AM EDT [facility] CHOL/HDLC RATIO 3.3 <5.0 (calc) 12/11/2024 8:50 AM EDT [facility] NON-HDL CHOLESTEROL 119 <130 mg/dL (calc) 12/11/2024 8:50 AM EDT [facility] Blood Blood / Unknown 12/10/2024 1 2:14 PM EDT 12/11/2024 7:28 AM EDT Narrative [facility] - 12/11/2024 8:51 AM EDT FASTING:NO . If a non-fasting specimen was collected, consider repeat triglyceride testing on a fasting specimen if clinically indicated. Naman et al. J. of Clin. Lipidol. 2015;9:129-169. . Reference range: <100 . Desirable range <100 mg/dL for primary prevention; <70 mg/dL for patients with CHD or diabetic patients with > or = 2 CHD risk factors. . LDL-C is now calculated using the Ama calculation, which is a validated novel method providing better accuracy than the Friedewald equation in the estimation of LDL-C. Juan HECK et al. FORD. 2013;310(19): 8896-7265 (http://education.WineDemon.Viewster/faq/AMO414) For patients with diabetes plus 1 major ASCVD risk factor, treating to a non-HDL-C goal of <100 mg/dL (LDL-C of <70 mg/dL) is considered a therapeutic option. Jacek Marmolejo [facility] - BLOOD DRAW Final Re sult [facility] [employer] [address] [place] [address], [employer] [address] [address] * REFERRAL SCANNED DOCUMENT (11/26/2024 3:00 AM EDT) 11/26/2024 3:00 AM EDT Jacek Jaleel [facility] SCAN REFERRAL Final Res ult * HEMOGLOBIN GLYCOSYLATED A1C (03/19/2024 5:01 PM EST) HEMOGLOBIN A1C 5.4 <5.7 % of total Hgb [facility] Comment: For the purpose of screening for the presence of diabetes: <5.7% Consistent with the absence of diabetes 5.7-6.4% Consistent with increased risk for diabetes (prediabetes) > or =6.5% Consistent with diabetes This assay result is consistent with a decreased risk of diabetes. Currently, no consensus exists regarding use of hemoglobin A1c for diagnosis of diabetes in children. According to [place] Diabetes Association (ADA) guidelines, hemoglobin A1c <7.0% represents optimal control in non- diabetic patients. Different metrics may apply to specific patient populations. Standards of Medical Care in Diabetes(ADA). Blood Blood / Unknown 03/19/2024 5 :01 PM EST 03/19/2024 5:01 PM EST Narrative [facility] [place] [facility] - 03/20/2024 7:36 AM EST FASTING:NO Jacek Marmolejo [facility] - BLOOD DRAW Edited [facility] Performing Organization Address [facility] Co de Phone Number [employer] [address] [place] [address], [employer] [address] [address] * HEPATITIS C AB W/RFLX HCV RNA, QT, RT PCR (04/04/2023 2:10 PM EST) HEPATITIS C ANTIBODY NON-REACT NAYELI NON-REACT NAYELI [facility] Comment: HCV antibody was non-reactive. There is no laboratory evidence of HCV infection. In most cases, no further action is required. However, if recent HCV exposure is suspected, a test for HCV RNA (test code 33467) is suggested. For additional information please refer to http://Cinnafilm.Ipercast/faq/LTU20s2 (This link is being provided for informational/ educational purposes only.) Blood Blood / Unknown 04/04/2023 2 :10 PM EST 04/04/2023 2:12 PM EST Narrative [facility] - 04/05/2023 2:35 PM EST NON FASTING FASTING:NO Jacek Marmolejo [facility] - BLOOD DRAW Edited [facility] Performing Organization Address [facility] Co de Phone Number [employer] [address] [place] [address], [employer] [address] [address] from Last 3 Months or Most Recently Relevant to Health Maintenance Insurance [id number] Member Subscriber Plan / Payer (Ef fective 2023-Present) Name:Benoitmeredith Mehdi Relation to Subscriber:Self Name:Benoitmeredith Mehdi Payer ID:[id number] Group ID:Not on file Type:Managed Medicaid Address: [address] [place] [id number] Care Teams Gasoline Engine Assembler Relationship Specialty Start Date End Date Jacek Marmolejo FNP [facility] [place] [address] PCP - General Family Medicine, CLINICAL DATA MANAGEMENT MANAGER 04/03/23
--- OUTSIDE RECORDS SUMMARY | 2025-01-28 06:21 | XMS_ITS | Clinical Summary ---
Author Organization [employer] [facility] Address [address] [place] [address] Care Team Providers Care Motion Picture Printer Name Role Phone Unavailable Primary Care Provider Unavailabl e Encounters Date Type Department Care Team Description 11/05/2024 Population Health Risk Score [facility] (C3) Department [address] [address] Provider, Population Health Generic from [...] - 19+ 3-dose series) 10/31/2003 COVID-19 Vaccine (1 - 2023-2 5 season) 2024 Influenza Vaccine (#1) 2024 Zoster Vaccines (1 [...]
--- OUTSIDE RECORDS SUMMARY | 2025-01-28 06:21 | XMS_ITS | Encounter Summary ---
Author Organization [facility] [place] [address] Care Team Providers Care Incubator Operator Name Role Phone Jaleel, Tylor WAFER PRODUCTION LEAD WORKER Primary Care Provider [phone]- [phone] Encounter Details Date Type Department Care Team (Late st Contact Info) Description 05/27/2024 Lab Requisition [facility] - Main Lab [address] [facility] [place] [address] Jose Angel Frazier, LON [address] [place] [address] Calculus of kidney Social History [...] AM EST) WBC 5.8 4.8 - 10.8 K/[facility] LAB HEMETOLOGY METHOD 05/27/2024 2:07 PM [facility] RBC 5.70(H) 4.50 - 5.50 M/mcL LAB HEMETOLOGY METHOD 05/27/2024 2:07 PM [facility] Hemoglobin 16.5 13.5 - 17.5 g/dL LAB HEMETOLOGY METHOD 05/27/2024 2:07 PM [facility] Hematocrit 47.6 42.0 - 54.0 % LAB HEMETOLOGY METHOD 05/27/2024 2:07 PM [facility] MCV 83.1 79.0 - 98.0 FL LAB HEMETOLOGY METHOD 05/27/2024 2:07 PM [facility] MCH 28.8 27.0 - 32.0 pcg LAB HEMETOLOGY METHOD 05/27/2024 2:07 PM [facility] MCHC 34.7 32.0 - 37.0 g/dL LAB HEMETOLOGY METHOD 05/27/2024 2:07 PM [facility] RDW 12.4 11.0 - 15.0 % LAB HEMETOLOGY METHOD 05/27/2024 2:07 PM [facility] Platelets 264 130 - 400 K/mcL LAB HEMETOLOGY METHOD 05/27/2024 2:07 PM [facility] MPV 10.9 7.0 - 11.0 FL LAB HEMETOLOGY METHOD 05/27/2024 2:07 PM [facility] NRBC 0.0 <1.0 % LAB HEMETOLOGY METHOD 05/27/2024 2:07 PM [facility] NRBC Absolute 0.00 <0.10 K/mcL LAB HEMETOLOGY METHOD 05/27/2024 2:07 PM [facility] Blood Venous blood specimen / Unknown 05/27/2024 05/27/2024 1:20 PM EST us Jose Angel [facility] BLOOD ORDERABLES Final Res ult [facility] [address] [place] [address], documented in this encounter Visit Diagnoses Diagnosis Calculus of kidney documented in this encounter Care Teams Incubator Operator Relationship Specialty Start Date End Date Jacek Marmolejo NP [address] [place] [address] PCP - General Nurse Practitioner 05/27/24 documented as of this encounter
--- OUTSIDE RECORDS SUMMARY | 2025-01-28 06:21 | XMS_ITS ---
Author Organization [facility] Address [address] [place] [address] Care Team Providers Care Sausage Linker Name Role Phone Jacek Marmolejo Primary Care Provider [phone] [phone] SA38 BP Program Status:Enrolled (Active) Start date:07/17/2024 Enrollment date:07/17/2024 Case Team Name Relationship Phone Kerry Martinez LPN(Responsible Staff) [phone] Continued Care and Services Coordination
== END 2025-01-28 06:20 | disposition home or self-care (01) ==
LOC: CF 06:19
PROVIDERS: Visit Provider Anesthesiology
DX: M48.062 Spinal stenosis, lumbar region with neurogenic claudication (principal)
CPT/HCPCS: 62323; J2003; J3301; Q9967

== ENCOUNTER 2025-01-28 08:56 | Outpatient (AMB) | payer MEDICAID, SELFPAY ==
[2025-01-28 09:13] VITALS: BP 131/84; PULSE 68; RESP 16; O2SAT 97; BMI 30.1
--- NOTE | 2025-01-28 09:13 | A.OFFVIS_ITS ---
Vital Signs 01/28/25 09:13 01/28/25 10:04 Height 5 ft 8 in Weight 198 lb BMI 30.1 BP 131/84 121/77 Blood Pressure Location Lt brachial Lt brachial Position Sitting Sitting Respiration 16 16 Pulse 68 70 Pulse Source Pulse Oximeter Pulse Oximeter Pulse Oximetry (%) 97 98 Oxygen Delivery Method Room Air Room Air Intake Visit Reasons: L4-L5 Interlaminar YVONNE Allergies Penicillins Allergy (Verified 11/08/24 09:22) rash [facility] Surgical History History of right nephrectomy Social History Are you a primary wild animal caretaker to a significant other at home: No Do you presently have visiting nurse or other home services: No Patient Tobacco Use Status: Never used Tobacco Current occupational status: employed Current occupation: construction, left hand dominant Physical Exam Vital Signs: Last Vital Signs Pulse 70 01/28/25 10:04 Resp 16 01/28/25 10:04 BP 121/77 01/28/25 10:04 Pulse Ox 98 01/28/25 10:04 Oxygen Delivery Method Room Air 01/28/25 10:04 BMI result Body Mass Index 30.1 Assessment & Plan Assessment & Plan (1) Lumbar stenosis with neurogenic claudication: Code(s): M48.062 - Spinal stenosis, lumbar region with neurogenic claudication Category: Medical Plan Interlaminar L4-5 epidural steroid injection. Informed consent was thoroughly explained to the patient before the procedure.? The patient came to the operating room.? He was positioned prone on operating table with a pillow under his abdomen.? Time-out was performed delineating correct site and side of the procedure, nature of the injection, name and date of of the patient. The lower back of the patient was prepped with ChloraPrep and draped with sterile utility towels.? C-arm was brought over the operating field and sq picture of L5 vertebra was demonstrated on the screen.? The upper margin of the left lamina of the L5 vertebra was chosen as initial target of the injection. The projection of the target to the skin was injected with small amount of lidocaine 1% forming a skin wheal. After that 20 gauge Touhy needle was inserted through the skin wheal and it was advanced to were the L4-5 epidural interspace under intermittent anterior posterior and lateral views using loss of resistance to air technique as the texture of the epidural space. When loss of resistance is felt and the tip of the needle needle was positioned 2 mm beyond interlaminar line on the lateral view injection of the contrast was performed delineating a epidurogram. After that injection of the 5 cc of lidocaine 1% mixed with Kenalog 40 mg was performed into the needle. After that needle was withdrawn and Band-Aid was applied. Patient tolerated procedure well. Orders: Orders FL guidance in treatment room Today M48.062 - Spinal stenosis, lumbar region with neurogenic claudication Coding Level of Care Code Procedure Only Diagnoses Lumbar stenosis with neurogenic claudication M48.062
[2025-01-28 10:04] VITALS: BP 121/77; PULSE 70; RESP 16; O2SAT 98
== END 2025-01-28 10:05 | disposition home or self-care (01) ==
LOC: HO.PMCPRC 08:56
PROVIDERS: PCP Nurse Practitioner Family; Visit Provider Anesthesiology
DX: M48.062 Spinal stenosis, lumbar region with neurogenic claudication (principal)
CPT/HCPCS: 62323

== ENCOUNTER 2025-02-26 10:53 | Outpatient (AMB) | payer MEDICAID, SELFPAY ==
--- NOTE | 2025-02-26 10:59 | A.OFFVIS_ITS ---
Vital Signs 02/26/25 11:00 Height 5 ft 8 in Weight 199 lb BMI 30.3 BP 151/98 H Blood Pressure Location Lt brachial Position Sitting Respiration 16 Pulse 93 Pulse Source Pulse Oximeter Pulse Oximetry (%) 98 Oxygen Delivery Method Room Air Intake Visit Reasons: S/P L4-L5 Interlaminar YVONNE Accompanied by: Life Partner Allergies Penicillins Allergy (Verified 02/26/25 11:02) rash HPI Comments Details: Mehdi is very pleasant 39 years old gentleman who presents in my office with complains on pain in the lower back with radiation into bilateral lower extremities with sensation of numbness but not weakness in bilateral lower extremities. He was referred to me by Dr. Atkins to perform interlaminar L4-5 epidural steroid injection. Patient reported today that injection aggravated his pain. He reports that his pain started 3 years ago. 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 He reports that he is currently unemployed. He is unable to sleep normally because of his pain. He is able to do activities of daily living, he is able to take care of himself, he is able to function normally. Weather changes aggravate his pain. Gabapentin oral medications make his pain slightly better. In terms of tissue damage he describes his pain as pulsing and pounding, lancinating, cutting, cramping and crushing, hot burning, tingling and stinging, hurting, and heavy sensation. He had an MRI at [facility] and MRI dictated as below. He had physical therapy in [place] of [facility] which did not help his pain. He has been 2 years in this country and he is afraid to go for physical therapy because it aggravates his pain. Interlaminar YVONNE see as above. His past medical history significant for hypertension headaches history of chest pain however stress test was negative history of heart palpitations, history of shortness of breath and kidney stones. He has a surgery on kidney stones twice 3 years ago in [facility] and 1 year ago in [facility]. He denies smoking cigarettes denies drinking alcohol she denies caffeinated beverages he denies recreational drugs. [facility] Surgical History History of right nephrectomy Social History Are you a primary home health caregiver to a significant other at home: No Do you presently have visiting nurse or other home services: No Patient Tobacco Use Status: Never used Tobacco Current occupational status: employed Current occupation: construction, left hand dominant Review of Systems Const All systems reviewed & are unremarkable except as noted in HPI and below ENT Reports Normal hearing present Neuro Reports Normal hearing present, Denies Abnormal speech present, Denies confusion and Denies Sensory deficit (Neuro) Psych Denies confusion Physical Exam Vital Signs: Last Vital Signs Pulse 93 02/26/25 11:00 Resp 16 02/26/25 11:00 BP 151/98 H 02/26/25 11:00 Pulse Ox 98 02/26/25 11:00 Oxygen Delivery Method Room Air 02/26/25 11:00 BMI result Body Mass Index 30.3 Const General: no acute distress; No confusion Orientation/consciousness: patient oriented x3 and No confusion Eyes General: appearance normal, both eyes and all related structures Pupils: Equal, round and reactive pupils present EOM: EOMs intact bilaterally Neck Neck: Yes full ROM Chest Chest palpation & inspection: normal inspection of the chest Resp Effort & Inspection: normal respiratory effort, able to speak in complete sentences, normal respiratory pattern, no audible wheezes and no cough Cardio Jugular venous distension: no JVD GI Inspection: Yes normal to inspection Back/Spine/Pelvis Other: Able to stand on bilateral tiptoes in bilateral heels without difficulty. Able to lift great toe in separation of the rest of the toes while standing. Flexing forward and flexing backwards aggravate his pain equally however range of motion with flexing forward is remarkable able to touch the floor while standing and flexing forward. Loading test is positive bilaterally. Gaenslen test and Mike tests are positive on the left and equivocal on the right. SLR is n egative bilaterally. Lasegue test is negative bilaterally. There is tenderness on palpation in paraspinal and spinal regions of the entire lumbar spine but mostly in the lower level of the lumbar spine at approximately S1-L5 and L4 vertebra. Neuro General: patient oriented x3, gait normal and No confusion Cranial nerves: Yes CN's II-XII intact bilaterally, Yes Equal, round and reactive pupils present, Yes Normal hearing present and Yes Ability to bilaterally elevate shoulders present Speech: No Abnormal speech present Gait exam (Neuro): Normal gait present Motor exam (neuro): 5/5 motor strength present throughout Sensory Exam: No Sensory deficit (Neuro) Extrem General: No pedal edema Psych Speech and movement: Normal speech and movement present Affect: normal affect Attitude: cooperative Thought process: Normal thought process present Thought content: Normal thought content present Insight: Good insight present (Psych) Judgement: Good judgement present (Psych) Results Reviewed Results Reviewed: MRI of the lumbar spine was obtained using routine sequences without contrast. FINDINGS: Last rib-bearing vertebra labeled T12. No bone marrow STIR signal abnormality. Decreased disc signal at L4-5 and to a lesser extent L3-4. There is a focal hyperintense T2 signal in the posterior intervertebral disc L4-5 likely focal annular fissure. There is normal alignment. The conus medullaris ends at the superior endplate of L1 with normal signal. There is hyperintense STIR signal at the inter posterior spinous processes ligamentous, L3-4 and to a lesser extent L4-5. T12-L1: No disc herniation. No neuroforamina stenosis. L1-2: Broad-based disc bulging. No compression upon neural elements. L2-3: Broad-based disc bulging. Reduced AP diameter of the thecal sac and neuroforamina. No compression upon neural elements. L3-4: Broad-based disc bulging. Facet joint and ligamentum flavum hypertrophy. Reduced AP diameter of the thecal sac and neuroforamina abutting likely encroaching the exiting nerve roots of L4 and L3. L4-5: Central broad-based disc herniation abutting the L5 nerve roots on the lateral recesses. Facet joint hypertrophy. Bilateral neuroforamina narrowing encroaching the L4 exiting nerve roots. L5-S1: Broad-based disc bulging. Facet joint hypertrophy. Prominent epidural fat in a circumferential fashion resulting in reduced AP diameter of the thecal sac. There is bilateral neuroforamina narrowing. No prevertebral compartment hematoma, mass or fluid collection. IMPRESSION: Central broad-based disc herniation at L4-5 abutting likely encroaching L5 exiting nerve roots. Multilevel spondylosis resulting in central spinal canal stenosis at L3-4 and bilateral neuroforamina narrowing at L3-4 L4-5 and L5-S1 encroaching the exiting nerve roots. 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 - Kissing spine, site unspecified Category: Medical (2) Spondylosis of lumbar region without myelopathy or radiculopathy: Code(s): M47.816 - Spondylosis without myelopathy or radiculopathy, lumbar region Category: Medical (3) Disc degeneration, lumbar: Code(s): M51.36 - Other intervertebral disc degeneration, lumbar region Category: Medical (4) Sacroiliitis: Code(s): M46.1 - Sacroiliitis, not elsewhere classified Category: Medical (5) Sacroiliac joint dysfunction of both sides: Code(s): M53.3 - Sacrococcygeal disorders, not elsewhere classified Category: Medical Plan Mehdi is very pleasant 39 years old [place] gentleman who is suffering from multiple problems in the lumbar spine. He has disc degeneration lumbar he has facet degeneration lumbar which are supported by physical exam. He also probably suffering from sacroiliitis on the left. I offered this patient to perform diagnostic medial branch block to determine whether his pain is coming from facet joints. Possibility exists that his pain is also a result of Baastrup disease. Sacroiliac joint involvement can not also be excluded. I will perform 1st diagnostic medial branch block L3, L4, dorsal ramus L5 bilateral to diagnose this patient's pain. If this will not be effective I will try sacroiliac joint injection bilateral. However if those 2 injections would not be effective I would seriously consider Baastrup diseases source of his pain and I will refer him back to Neurosurgery to perform spinous processes surgery. Patient Instructions: I here by testify that I spent 45 minutes in conversation with this patient as well as planning his care and organizing this note. Coding Level of Care Code New Pt Level 4 (02489) Diagnoses Baastrups syndrome M48.20 Spondylosis of lumbar region without myelopathy or radiculopathy M47.816 Disc degeneration, lumbar M51.36 Sacroiliitis M46.1 Sacroiliac joint dysfunction of both sides M53.3
[2025-02-26 11:00] VITALS: BP 151/98; PULSE 93; RESP 16; O2SAT 98; BMI 30.3
--- OUTSIDE RECORDS SUMMARY | 2025-02-26 13:13 | XMS_ITS | Encounter Summary ---
Author Organization [facility] Address [address] [place] [address] Care Team Providers Care Care Support Representative Name Role Phone Jacek Marmolejo [facility] Primary Care Provider [phone] [phone] Encounter Details Date Type Department Care Team (Late Contact Info) Description 02/25/2025 Results Follow-Up [facility] [address] [place] [address] Taty Padilla FNP [address] [place] [address] Social History Tobacco Use Types Packs/Day Years [...] AM PST documented as of this encounter Plan of Treatment Upcoming Encounters Date Type Department Care Team (Late Contact Info) Description 03/19/2025 9:00 AM EST Office Visit [facility] [address] [place] [address] Kerry Martinez LPN [phone] [place] [address] [place] [address] 03/19/2025 4:30 PM EST Office Visit [facility] [address] [place] [address] Deirdre Cochran, DMD [address] [place], [place] [id number] 08/04/2025 9:00 AM EDT Office Visit [facility] [address] [place] [phone] Jass Dorado RHD [address] [place], [place] [phone] documented as of this encounter Goals Goal Patient Goal Type Associated Problems Recent Progress Patient-Stated? Author Blood Pressure < 130/80 Blood Pressure 130/80( 025 11:31 AM EST) No Kerry Martinez LPN Hypertension: Decrease sodium intake General On track(02/13/20 3:51 PM PDT) No Kerry Martinez LPN documented as of this encounter Visit Diagnoses Not on filedocumented in this encounter Additional Health Concerns Assessment Noted Time PHQ-9 Depression Total Score: 0 02/20/20 11:31 AM PST A Depression follow-up plan has been documented for the patient 05/23/2024 10:39 AM PST PHQ-2 Depression Total Score: 0 02/20/20 11:31 AM PST documented as of this encounter Care Teams Care Support Representative Relationship Specialty Start Date End Date Jacek Marmolejo FNP [address] [place] [address] PCP - General Family Medicine, POTTERY MACHINE OPERATOR 04/03/23 documented as of this encounter
--- OUTSIDE RECORDS SUMMARY | 2025-02-26 13:14 | XMS_ITS | Clinical Summary ---
Author Organization [employer] Address [address] [facility] [address] [place] [address] Care Team Providers Care Fire Captain Marine Name Role Phone Unavailable Primary Care Provider Unavailabl e Social History Tobacco Use Types Packs/Day Years [...]
--- OUTSIDE RECORDS SUMMARY | 2025-02-26 13:15 | XMS_ITS | Clinical Summary ---
Author Organization [facility] Address [address] [place] [address] Phone Care Team Providers Care Pediatric Speech Language Pathologist Name Role Phone Jacek Marmolejo NP Primary Care Provider [phone]- [phone] Allergies Active Allergy Reactions Criticality Noted Date [...] topic Insurance MEDICAID - [place] Care Teams Pediatric Speech Language Pathologist Relationship Specialty Start Date End Date Jacek Marmolejo NP [address] [place] [address] PCP - General Nurse Practitioner 05/27/24
--- OUTSIDE RECORDS SUMMARY | 2025-02-26 13:15 | XMS_ITS | Encounter Summary ---
Author Organization [place] [address] Care Team Providers Care Shoe Dyer Name Role Phone Jaleel, Tylor HAY Primary Care Provider [phone]- [phone] Encounter Details Date Type Department Care Team (Late st Contact Info) Description 05/27/2024 Lab Requisition [facility] - Main Lab [address] [facility] [place] [address] Jose Angel Frazier PA [address] [place] [address] Calculus of kidney; Urinary tract [...] Urine No growth 05/28/2024 11:14 AM EST [facility] Urine Urine specimen obtained by clean catch procedure / Unknown 05/27/2024 11:45 AM EST 05/27/2024 1:16 PM EST us [facility] MICROBIOLOGY - GENERAL ORD ERABLES Final Result [facility] [address] [place] [address], documented in this encounter Visit Diagnoses Diagnosis Calculus of kidney Urinary tract infection, site not specified documented in this encounter Care Teams Shoe Dyer Relationship Specialty Start Date End Date Jacek Marmolejo NP [address] [place] [address] PCP - General Nurse Practitioner 05/27/24 documented as of this encounter
--- OUTSIDE RECORDS SUMMARY | 2025-02-26 13:15 | XMS_ITS | Continuity of Care Document ---
Author Organization [place] [facility] Address [address] [address] Care Team Providers Care Mason Tender Restoration Labor Name Role Phone FEI MEJIA Primary Care Provider Assessment No assessment recorded. Plan of Treatment Reminders Order Date Submit Date Provider Last Modified By Organization Details Last Modified Time Details Appointments SURGERY 90 2024 12:30P M NUBIA PATTON MD Not available Not available Not available Post Op 2024 10:15A M LON FRANCISCO Not available Not available Not available Establish ed 15 2024 09:45A M LON FRANCISCO Not available Not available Not available Post Op 2025 03:30P M NUBIA PATTON MD Not available Not available Not available Lab None recorded. Referral None recorded. Procedures None recorded. Surgeries None recorded. Imaging None recorded. Medication Orders None recorded. Patient TargetsNo targets recorded. Patient InstructionsNo instructions recorded. Reason for Referral None Reported. Results Created Date Observation Date Name Description Value Unit Range Abnormal Flag Note LastModifiedBy Organization Detail LastModifiedTime 11/27/19 25 audio gram No observ ation record ed. [facility] Not Available 2024 14:26:28 12/15/19 25 12/13/2024 CT, sinus es, w/o contr ast No observ ation record ed. [facility] [place] [address] [facility] [address], [place], [address], 12/19/2024 16:47:04 12/27/19 25 andrei metry testi ng* No observ ation record ed. [email or web address] Not Available 2024 10:51:04 Result Notes None recorded. 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 Active 2024 MOY STEPHENSON PA-C [address], [place], [address], [facility] 10:48:28 Chronic sore throat 006388514 Active 2024 MOY STEPHENSON PA-C [address], [place], [address], [facility] 10:48:36 Chronic tonsillitis 06674650 Active 2024 MOY STEPHENSON PA-C [address], [place], [address], [facility] 10:48:53 Chronic rhinitis 66860266 Active 2024 MOY STEPHENSON PA-C [address], [place], [address], [facility] 10:50:43 Mixed conductive AND sensorineur al hearing loss 34749246 Active 2024 Ramona leigh [place] [facility] 15:38:24 Tinnitus of right ear 0321880715736 Active 2024 MAUDE LIVE PA-C [address], [place], [address], [place] [facility] 16:46:36 Conductive hearing loss of right ear with normal hearing on left side 7745071158 Active 2024 JOHN GERONIMO MD [address] [facility], [place], [address], [facility] 5 07:38:53 Otosclerosi s 77534324 Active 2024 JOHN GERONIMO MD [address] [facility], [place], [address], [place] [facility] 5 08:43:46 Sensorineur al hearing loss of right ear with normal hearing on left side 6756400210 Active [address] [facility], [place], [address], [facility] 5 11:31:37 Nasal congestion 82631572 Active 2024 MOY STEPHENSON PA-C [address] [facility], [place], [address], [facility] 5 10:17:32 Perennial allergic rhinitis 976388695 Active [address] [facility], [place], [address], [facility] 5 10:48:08 Deviated nasal septum 783233444 Active 2024 NUBIA PATTON MD [address] [facility], [place], [address], [facility] 5 08:40:01 Essential hypertensio n 39566879 Active 2024 NUBIA PATTON MD [address] [facility], [place], [address], [facility] 5 08:41:13 Seasonal allergic rhinitis 236532990 Active 2024 NUBIA PATTON MD [address] [facility], [place], [address], [facility] 5 08:42:06 Allergic rhinitis 87094069 Active 2024 NUBIA PATTON MD [address], [address], [facility] 08:42:06 Problem Notes None recorded. Procedures Surgical History Date Name Laterality Status Provider Name and Address Organization Details Recorded Time 12/27/19 Allergy Testing-Full completed TAYLOR BARBER [address] [facility],[address], [address], [facility] 12/26/2024 12:11:11 12/10/19 25 FOL_DP completed MOY STEPHENSON PA-C [address] [facility],[address], [address], [facility] 12/09/2024 10:19:39 11/27/19 25 Air only Audio - 97827 completed SHANE CABRERA [address] [facility],[address], [address], [facility] 11/26/2024 11:27:04 10/03/19 25 STAPEDECTOMY/STAPE DOTOMY W/ REESTABLISHMENT OF OSSICULAR CONTINUITY (SURG) completed Gino Wills [facility] 10/08/2024 10:06:00 07/12/19 25 Air & Bone Audio - 12541 completed Lala Musa [place] [facility] 07/11/2024 16:06:51 07/12/19 25 Tymps & Reflexes - 32416 completed Lala Musa [place] [facility] 07/11/2024 16:07:06 lithotripsy completed Joanne Oscar [facility] 01/30/2025 08:08:44 operative procedure on hand completed Joanne Oscar [facility] 01/30/2025 08:08:52 Imaging Results None recorded. Procedure Notes None recorded. Medical Equipment None Reported. Allergies Allergen ID Allergen Name Allergen Category Reaction Reaction Severity Criticality Documentation Date Start Date Code Code System Note Provider Name and Address Organization Details Recorded Time 842893 Product containin g penicilli n (product) medicatio n Not available Not available Not available 06/19/2024 03381 8001 SNOMED MOY STEPHENSON PA-C [address] [place] [address], [address], [facility] 10:35:52 Medications Name Sig Start Date Stop Date Status Note LastModified by Organization Details LastModified Time atorvastati n 20 mg tablet TAKE 1 TABLET BY MOUTH EVERYDAY AT BEDTIME active Not Available Not Available No t Available erythromyci n 500 mg tablet TAKE 1 TABLET BY MOUTH EVERY 8 HOURS 07/11 completed Not Available Not Available Not Available fexofenadin e 180 mg tablet TAKE 1 TABLET BY MOUTH EVERY DAY active Not Available Not Available No t Available meloxicam 7.5 mg tablet TAKE 1 [...] Not Available Not Available No t Available azelastine 137 mcg (0.1 %) nasal spray SPRAY 2 SPRAYS BY INTRANASA L ROUTE TWICE A DAY active Not Available Not Available No t Available fluticasone propionate 50 mcg/actuati on nasal spray,suspe nsion SPRAY 1 SPRAY BY INTRANASA L ROUTE EVERY DAY active Not Available Not Available [...] Not Available Not Available Vitals Date Recorded Oxygen saturation Oxygen saturation in Arterial blood by Pulse oximetry Heart rate Body mass index (BMI) Body weight Systolic And Diastolic Systolic And Diastolic Provider Name and Address Organization Details Last Updated DateTime 98 % 98 % 79 /min 31 kg/m2 77230.2 9 g 142/100 mm[Hg] 142/105 mm[Hg] [address]ECTOR [address], [address], [facility] 5 13:14:20 Date Recorded Body height Provider Name an d Address Organization Details Last Updated DateTime 12/26/2024 170.18 cm TAYLOR BARBER [address] [place] [address], [address], [facility] 12/26/2024 10:37:11 Social History None recorded. Functional Status None recorded. Mental Status None recorded. Family History Nothing Reported. Medical History Condition Response Migraines Y Hypertension Y Kidney Disease Y Past Encounters Encounter ID Performer Location Encounter Start Date Encounter Closed Date Diagnosis/Indication Diagnosis SNOMED-CT Code Diagnosis ICD10 Code Diagnosis IMO Codes Diagnosis Note [id number] JOHN GERONIMO MD [facility] [address] [address] 11/26/2024 10:46:31 11/26/2024 13:18:13 Otosclerosis 08249490 H80.91 7230274 Sensorineu ral hearing loss of right ear with normal hearing on left side 9766119870 H90.41 [id number] Right Ear:Normal hearing through 4K [place]. [id number] MOY STEPHENSON PA-C [facility] [address] [address] 12/09/2024 09:17:26 12/09/2024 09:52:24 Chronic rhinitis 99324476 J31.0 Amygdalolith 3689409 J35 .8 Nasal congestion 0563937 0 R09.81 [id number] TAYLOR BARBER [facility] [address] [place] [address] [facility] [place] [address] 12/26/2024 10:02:28 12/26/2024 13:16:43 Perennial allergic rhinitis 908269821 J30.89 094000 Health Concerns Section Related Observation LastModified by Organization Detai ls LastModified Time None Recorded Concern Status LastModified by Organization Details LastModified Time None Recorded Payers Encounter Date Sequence Insurance Name Policy Number Policy Aguilera Covered Member ID Aguilera Member ID Guarantor Name 12/26/2024 1 MEDICAID-[place]: [facility] Mehdi Lechuga [id number] Mehdi Lechuga
--- OUTSIDE RECORDS SUMMARY | 2025-02-26 13:15 | XMS_ITS | Encounter Summary ---
Author Organization [place] [address] Care Team Providers Care Department Director Name Role Phone Jaleel, Tylor SHIPPING HAND Primary Care Provider [phone] Encounter Details Date Type Department Care Team (Late st Contact Info) Description 05/27/2024 Lab Requisition [facility] - Main Lab [address] [facility] [place] [address] Jose Angel Frazier, LON [address] [place] [address] Calculus of kidney Social History [...] AM EST) WBC 5.8 4.8 - 10.8 [facility] LAB HEMETOLOGY METHOD 05/27/2024 2:07 PM [facility] [...] 05/27/2024 2:07 PM [facility] LAB RDW 12.4 11.0 [...] LAB BLOOD ORDERABLES Final Res ult [facility] [address] [place] [address], documented in this encounter Visit Diagnoses Diagnosis Calculus of kidney documented in this encounter Care Teams Department Director Relationship Specialty Start Date End Date Jacek Marmolejo NP [address] [place] [address] PCP - General Nurse Practitioner 05/27/24 documented as of this encounter
--- OUTSIDE RECORDS SUMMARY | 2025-02-26 13:15 | XMS_ITS | Clinical Summary ---
Author Organization [facility] Address [address] [place] [address] Care Team Providers Care Senior Animator Name Role Phone Jacek Marmolejo FISCAL SERVICES DIRECTOR Primary Care Provider [phone] Source Comments PLEASE NOTE, if this patient is a minor, it may be UNLAWFUL to discuss sensitive information that is contained in these records (such as FAMILY PLANNING, MENTAL HEALTH or SUBSTANCE ABUSE) with the minor patient's parent or other person without the patient's specific authorization.[facility] Allergies Active Allergy Reactions Criticality Noted Date Comments Penicillin G Hives 03/16/2023 Medications blood pressure monitorIndicati ons:Essential hypertension Dispense one automated BP monitor, to be used daily and prn, length of need 99 years 1 Kit 1 05/13/19 25 Active sodium chloride (OCEAN) 0.65 % nasal sprayIndication s:Epistaxis Place 1 [place] into the nostril(s) as needed for congestion. 44 mL 5 09/12/19 25 Active atorvastatin (LIPITOR) 20 mg tablet Take 1 Tablet by mouth nightly at bedtime. 90 Tablet 1 12/04/19 25 Active omeprazole (PRILOSEC) [address] capsuleIndicati ons:Chronic gastritis without bleeding, unspecified gastritis type Take 1 Capsule by mouth every morning before breakfast. 90 Capsule 1 12/04/19 25 Active meloxicam (MOBIC) 7.5 mg tabletIndicatio ns:Numbness and tingling of left hand,Chronic pain of left knee TAKE 1 TABLET BY MOUTH EVERY DAY 90 Tablet 1 02/13/20 25 Active gabapentin (NEURONTIN) 300 mg capsuleIndicati ons:Numbness and tingling of left hand,Chronic pain of left knee Take 1 Capsule by mouth 2 (two) times daily. 180 Capsule 1 02/20/20 25 Active amlodipine-vals dina (EXFORGE) 5-320 mg per tabletIndicatio ns:Essential hypertension Take 1 Tablet by mouth once daily. 90 Tablet 1 02/20/20 25 Active meloxicam (MOBIC) 7.5 mg tabletIndicatio ns:Numbness and tingling of left hand,Chronic pain of left knee Take 1 Tablet by mouth once daily 90 Tablet 1 05/13/19 25 025 Discontinued gabapentin (NEURONTIN) 300 mg capsuleIndicati ons:Numbness and tingling of left hand,Chronic pain of left knee Take 1 Capsule by mouth 2 (two) times daily 180 Capsule 1 08/01/19 25 025 Discontinued(Re order (E-Cancel Not Sent)) amlodipine-vals dina (EXFORGE) 5-320 mg per tabletIndicatio ns:Essential hypertension TAKE 1 TABLET BY MOUTH ONCE DAILY 90 Tablet 1 11/26/19 25 025 Discontinued(Re order (E-Cancel Not Sent)) Active Problems Problem Noted Date Diagnosed Date Lumbar stenosis with neurogenic claudication Overview (12/10/2024): Goes to [place] Sensorineural hearing loss (SNHL) of right ear 0 11/27/2024 Overview (11/27/2024): 11/26/2024 - [facility] - Dx: Otosclerosis of Right ear; Sensorineural hearing loss of right ear with unrestricted hearing of left ear Essential hypertension 01/16/2024 Hyperlipidemia 04/06/2023 Encounters Date Type Department Care Team Description 02/25/2025 Results Follow-Up [address] [address] Taty Padilla FNP 02/19/2025 11:40 AM EST Office Visit [address] [address] Taty Padilla FNP 02/11/2025 10:40 AM EDT Office Visit [address] [phone] Kerry Martinez LPN Vasylyshyn, Norma 01/30/2025 1:00 PM EDT Office Visit [facility] [address] [place] [phone] Jass Dorado RHD 01/06/2025 9:20 AM EDT Office Visit [address] [address] Nimco Baker RN Vasylyshyn, Oksana 12/13/2024 Results Follow-Up [address] [phone] Jacek Marmolejo FNP 12/10/2024 11:20 AM EDT Office Visit [address] [phone] Jacek Marmolejo FNP Vasylyshyn, Oksana from Last [...] Sign Reading Time Taken Comments Blood Pressure 130/80 02/19/2025 11:31 AM EST Pulse 84 02/19/2025 11:31 AM EST Temperature 36.7 C (98 F) 02/19/2025 11:31 AM EST Respiratory Rate 16 02/19/2025 11:3 1 AM EST Oxygen Saturation 99% 02/19/2025 11: 31 AM EST Inhaled Oxygen Concentration - - Weight 88.8 kg (195 lb 12.8 oz) 025 11:31 AM EST Height 172.7 cm (5' 8 ) 02/19/2025 11:3 1 AM EST Body Mass Index 29.77 02/19/2025 11:31 AM EST Plan of Treatment Upcoming Encounters Date Type Department Care Team (Late st Contact Info) Description 03/19/2025 9:00 AM EST Office Visit [facility] [address] [place] [address] Kerry Martinez LPN [phone] [place] [address] [place] [address] 03/19/2025 4:30 PM EST Office Visit [facility] [address] [place] [phone] Deirdre Cochran, DMD [address] [place] [address] 08/04/2025 9:00 AM EDT Office Visit [facility] [address] [place] [phone] Jass Dorado RHD [address] [place] [address] Health Maintenance Due Date Last Done Comments Dental Perio Charting 1984 Dental Prophy 1984 HIV Screening 10/31/1999 [id number] ( season) 2025 Postponed from 12/16/2024 (Patient postponement) Imm-DTaP/Tdap/Td (1 - Tdap) 05/22/2025 Postponed from 10/31/2003 (Patient postponement) Imm-HPV (1 - 3-dose SCDM series) 05/22/2025 Postponed from 10/31/2011 (Patient postponement) Imm-Hepatitis B (1 of 3 - 19+ 3-dose series) 05/22/2025 Postponed from 10/31/2003 (Patient postponement) Imm-Influenza (#1) 2025 Postponed from 12/16/2024 (Patient postponement) Annual Wellness (Adult): Indicated (All Coverage) 12/10/2025 12/10/2024, 04/04/2023 Lipid Screening 12/10/2025 12/10/2024, 06/2023, 04/04/2023 Dental BW 02/01/2026 01/30/2025 Dental Examination 02/01/2026 01/30/2025 Anxiety Screening 02/19/2026 02/19/2025 Tobacco Screening 02/19/2026 02/19/2025 Diabetes Screening 02/20/2028 02/19/2025, 1 05/20/2023, 03/19/2024, Additional history exists Dental FMX/Pano 02/01/2030 01/30/2025 Hepatitis C Screening Completed 04/04/2023 Alcohol and Drug Screen Completed 12/11/19, 05/23/2024, 01/16/2024 Depression Annual Screen Completed 02/19/2025 Goals Goal Patient Goal Type Associated Problems Recent Progress Patient-Stated? Author Blood Pressure < 130/80 Blood Pressure 130/80( 025 11:31 AM EST) No Kerry Martinez LPN Hypertension: Decrease sodium intake General On track(02/13/20 3:51 PM PDT) No Kerry Martinez LPN Procedures Procedure Name Priority Date/Time Associated Diagnosis Comments ECHO TTHRC R-T 2D W/WOM-MODE COMPL SPEC&COLR D Routine 02/20/2025 3:00 AM EST Essential hypertension SOBOE (shortness of breath on exertion) RFLX - REFLEXIVE URINE CULTURE Routine 02/19/2025 12:06 PM EST URINALYSIS, COMPLETE W/REFLEX TO CULTURE Routine 02/19/2025 12:06 PM EST Preop cardiovascular exam TSH W/RFLX FREE T4 Routine 02/19/2025 12 :01 PM EST Preop cardiovascular exam COMPREHENSIVE METABOLIC PANEL Routine 02/19/2025 12:01 PM EST Preop cardiovascular exam BLOOD COUNT COMPLETE AUTO&AUTO DIFRNTL WBC Routine 02/19/2025 12:01 PM EST Preop cardiovascular exam DENTAL CASE MANAGEMENT - MOTIVATIONAL INTV Routine 01/30/2025 1:00 PM EDT Symptomatic periapical periodontitis Caries of enamel (incipient) Encounter for dental examination INTRAORAL - COMP SERIES OF RADIOGRAPHIC IMAGES Routine 01/30/2025 1:00 PM EDT Symptomatic periapical periodontitis Caries of enamel (incipient) Encounter for dental examination COMP ORAL EVALUATION - NEW/ESTABLISHED PATIENT Routine 01/30/2025 1:00 PM EDT Symptomatic periapical periodontitis Caries of enamel (incipient) Encounter for dental examination CARIES RISK ASSESSMENT & DOC FINDING HIGH RISK Routine 01/30/2025 1:00 PM EDT Symptomatic periapical periodontitis Caries of enamel (incipient) Encounter for dental examination NUTRITIONAL COUNSELING CONTROL OF DENTAL DISEASE Routine 01/30/2025 1:00 PM EDT Symptomatic periapical periodontitis Caries of enamel (incipient) Encounter for dental examination ORAL HYGIENE INSTRUCTIONS Routine 01/30/2025 1:00 PM EDT Symptomatic periapical periodontitis Caries of enamel (incipient) Encounter for dental examination ORAL CANCER SCREENING Routine 01/30/2025 1:00 PM EDT Symptomatic periapical periodontitis Caries of enamel (incipient) Encounter for dental examination CASE PRESENTATION SUBS DTL & EXTENSIVE TX PLN Routine 01/30/2025 1:00 PM EDT Encounter for dental examination REFERRAL SCANNED DOCUMENT 01/30/2025 3:00 AM EDT 10 I COMPOSITE - WISDOM (NON BILLABLE) Routine 01/30/2025 12:00 AM EDT 9 I COMPOSITE - WISDOM (NON BILLABLE) Routine 01/30/2025 12:00 AM EDT 8 I COMPOSITE - WISDOM (NON BILLABLE) Routine 01/30/2025 12:00 AM EDT 14 CROWN - PORCELAIN/CERAMIC Routine 01/30/2025 12:00 AM EDT 5 CROWN - PORCELAIN/CERAMIC Routine 01/30/2025 12:00 AM EDT 5 ROOT CANAL - WISDOM (NO BILLABLE) Routine 01/30/2025 12:00 AM EDT 14 ROOT CANAL - WISDOM (NO BILLABLE) Routine 01/30/2025 12:00 AM EDT 15 MO COMPOSITE - WISDOM (NON BILLABLE) Routine 01/30/2025 12:00 AM EDT 12 MO COMPOSITE - WISDOM (NON BILLABLE) Routine 01/30/2025 12:00 AM EDT 6 DL COMPOSITE - WISDOM (NON BILLABLE) Routine 01/30/2025 12:00 AM EDT 31 O COMPOSITE - WISDOM (NON BILLABLE) Routine 01/30/2025 12:00 AM EDT 30 O COMPOSITE - WISDOM (NON BILLABLE) Routine 01/30/2025 12:00 AM EDT 3 O COMPOSITE - WISDOM (NON BILLABLE) Routine 01/30/2025 12:00 AM EDT 2 O COMPOSITE - WISDOM (NON BILLABLE) Routine 01/30/2025 12:00 AM EDT 19 ROOT CANAL - WISDOM (NO BILLABLE) Routine 01/30/2025 12:00 AM EDT 18 ROOT CANAL - WISDOM (NO BILLABLE) Routine 01/30/2025 12:00 AM EDT OTHER ORDERS SCANNED DOCUMENT 01/07/2025 3:00 AM EDT ECG ROUTINE ECG W/LEAST 12 LDS TRCG ONLY W/O I&R Routine 01/06/2025 10:53 AM EDT SOBOE (shortness of breath on exertion) LIPID PANEL Routine 12/10/2024 12:14 PM EDT Hyperlipidemia, unspecified hyperlipidemia type REFERRAL SCANNED DOCUMENT 11/26/2024 3:00 AM EDT HEPATITIS C AB W/RFLX HCV RNA, QT, RT PCR Routine 04/04/2023 2:10 PM EST Examination, medical, general from Last 3 Months or Most Recently Relevant to Health Maintenance Results * ECHO TTHRC R-T 2D W/WOM-MODE COMPL SPEC&COLR D (02/20/2025 3:00 AM EST) 02/20/2025 3:00 AM EST Jacek Marmolejo FISCAL SERVICES DIRECTOR IMG ULTRASOUND CARD Final Result * URINALYSIS, COMPLETE W/REFLEX TO CULTURE Urine Routine (02/19/2025 12:06 PM EST) COLOR YELLOW YELLOW 02/20/2025 5:38 AM EST [employer] [facility] APPEARANCE CLEAR CLEAR 02/20/2025 5:38 AM EST [employer] [facility] SPECIFIC GRAVITY 1.019 1.001 - 1.035 02/20/2025 5:38 AM EST [employer] [facility] URINE PH 5.5 5.0 - 8.0 02/20/2025 5:38 AM [employer] [facility] GLUCOSE NEGATIVE NEGATIVE 02/20/2025 5:38 AM EST [employer] [facility] BILIRUBIN NEGATIVE NEGATIVE 02/20/2025 5:38 AM EST [employer] [facility] KETONES NEGATIVE NEGATIVE 02/20/2025 5:38 AM EST [employer] [facility] OCCULT BLOOD NEGATIVE NEGATIVE 02/20/2025 5:38 AM EST [facility] [facility] URINE PROTEIN NEGATIVE NEGATIVE 02/20/2025 5:38 AM EST [employer] [facility] NITRITE NEGATIVE NEGATIVE 02/20/2025 5:38 AM [employer] [facility] LEUKOCYTE ESTERASE NEGATIVE NEGATIVE 02/20/2025 5:38 AM [employer] [facility] URINE LEUKOCYTES NONE SEEN 0 - 5 /HPF 02/20/2025 5:38 AM [employer] [facility] RBC NONE SEEN 0 - 2 /HPF 02/20/2025 5:38 AM EST [employer] [facility] SQUAMOUS EPITHELIAL CELLS NONE SEEN < OR = 5 /HPF 02/20/2025 5:38 AM EST [employer] [facility] BACTERIA NONE SEEN NONE SEEN /HPF 02/20/2025 5:38 AM EST [facility] [facility] HYALINE CAST NONE SEEN NONE SEEN /LPF 02/20/2025 5:38 AM EST [employer] [facility] SEE NOTE SEE NOTE 02/20/2025 5:38 AM EST [employer] [facility] Urine Urine specimen / Unknown 02/19/2025 12:06 PM EST 02/20/2025 4:47 AM EST [employer] [facility] - 02/20/2025 5:46 AM EST This urine was analyzed for the presence of WBC, RBC, bacteria, casts, and other formed elements. Only those elements seen were reported. . . Taty Padilla [facility] URINE AMBULATORY Final R esult Performing Organization Address [facility] Co de Phone Number [employer] [address] [address], [place] [address] [address] * RFLX - REFLEXIVE URINE CULTURE Routine (02/19/2025 12:06 PM EST) REFLEXIVE URINE CULTURE SEE NOTE 02/20/2025 5:38 AM EST [employer] [place] [employer] 02/19/2025 12:0 6 PM EST 02/20/2025 4:47 AM EST [employer] [facility] - 02/20/2025 5:46 AM EST NO CULTURE INDICATED Taty Padilla [facility] - MICROBIOLOGY AMBULATOR Y Final Result Performing Organization Address [facility] de Phone Number [employer] [address] [address], [place] [address] [address] * TSH W/RFLX FREE T4 Routine (02/19/2025 12:01 PM EST) TSH W/REFLEX TO FT4 1.60 0.40 - 4.50 mIU/L 02/20/2025 5:13 AM EST [employer] Blood Blood / Unknown 02/19/2025 1 2:01 PM EST 02/20/2025 4:01 AM EST [employer] [facility] - 02/20/2025 5:31 AM EST FASTING:UNKNOWN Taty Padilla [facility] - BLOOD DRAW Final Resul t Performing Organization Address [facility] de Phone Number [employer] [address] [place] [address], [employer] [facility] [address] [place] [address] * BLOOD COUNT COMPLETE AUTO&AUTO DIFRNTL WBC Routine (02/19/2025 12:01 PM EST) WHITE BLOOD CELL COUNT 6.6 3.8 - 10.8 Thousand/ uL 02/20/2025 4:25 AM EST [employer] [facility] RED BLOOD CELL COUNT 5.37 4.20 - 5.80 Million/u L 02/20/2025 4:25 AM EST [employer] [facility] HEMOGLOBIN 16.1 13.2 - 17.1 g/dL 02/20/2025 4:25 AM [employer] [facility] HEMATOCRIT 46.3 38.5 - 50.0 % 02/20/2025 4:25 AM [employer] [facility] MCV 86.2 80.0 - 100.0 fL 02/20/2025 4:25 AM [employer] [facility] MCH 30.0 27.0 - 33.0 pg 02/20/2025 4:25 AM [employer] [facility] MCHC 34.8 32.0 - 36.0 g/dL 02/20/2025 4:25 AM [employer] [facility] RDW 12.8 11.0 - 15.0 % 02/20/2025 4:25 AM [employer] [facility] PLATELET COUNT 221 140 - 400 Thousand/ uL 02/20/2025 4:25 AM [employer] [facility] MPV 10.6 7.5 - 12.5 fL 02/20/2025 4:25 AM [employer] [facility] ABSOLUTE NEUTROPHILS 4,396 1,500 - 7,800 cells/uL 02/20/2025 4:25 AM [employer] [facility] ABSOLUTE LYMPHOCYTES 1,538 850 - 3,900 cells/uL 02/20/2025 4:25 AM [employer] [facility] ABSOLUTE MONOCYTES 455 200 - 950 cells/uL 02/20/2025 4:25 AM [employer] [facility] ABSOLUTE EOSINOPHILS 172 15 - 500 cells/uL 02/20/2025 4:25 AM [employer] [facility] ABSOLUTE BASOPHILS 40 0 - 200 cells/uL 02/20/2025 4:25 AM [employer] [facility] NEUTROPHILS PCT 66.6 % 11/06/202 5 4:25 AM EST [employer] [facility] LYMPHOCYTES 23.3 % 02/20/2025 4:25 AM EST [employer] [facility] MONOCYTES 6.9 % 02/20/2025 4:25 AM EST [employer] [facility] EOSINOPHILS 2.6 % 02/20/2025 4:25 AM EST [employer] [facility] BASOPHILS 0.6 % 02/20/2025 4:25 AM EST [employer] [facility] Blood Blood / Unknown 02/19/2025 1 2:01 PM EST 02/20/2025 4:04 AM EST [employer]arr[employer] - 02/20/2025 4:35 AM EST FASTING:UNKNOWN For adults, a slight decrease in the calculated MCHC value (in the range of 30 to 32 g/dL) is most likely not clinically significant; however, it should be interpreted with caution in correlation with other red cell parameters and the patient's clinical condition. Taty Padilla FISCAL SERVICES DIRECTOR LAB - BLOOD DRAW Final Resul t [employer] [address] [place] [address], [employer] [address] [address] * (ABNORMAL) COMPREHENSIVE METABOLIC PANEL Routine (02/19/2025 12:01 PM EST) GLUCOSE 100(H) 65 - 99 mg/dL 02/20/2025 6:51 AM EST [employer] [facility] UREA NITROGEN (BUN) 20 7 - 25 mg/dL 02/20/2025 6:51 AM EST [employer] [facility] CREATININE (blood) 1.36(H) 0.60 - 1.29 mg/dL 02/20/2025 6:51 AM EST [employer] [facility] EGFR 67 > OR = 60 mL/min/1. 73m2 02/20/2025 6:51 AM EST [employer] BUN/CREATININE RATIO 15 6 - 22 (calc) 02/20/2025 6:51 AM EST [employer] [facility] SODIUM 141 135 - 146 mmol/L 02/20/2025 6:51 AM EST [employer] POTASSIUM 4.0 3.5 - 5.3 mmol/L 02/20/2025 6:51 AM [employer] CHLORIDE 102 98 - 110 mmol/L 02/20/2025 6:51 AM EST [employer] [facility] CARBON DIOXIDE 24 20 - 32 mmol/L 02/20/2025 6:51 AM EST [employer] [facility] CALCIUM 9.6 8.6 - 10.3 mg/dL 02/20/2025 6:51 AM EST [employer] [facility] PROTEIN, TOTAL 6.9 6.1 - 8.1 g/dL 02/20/2025 6:51 AM EST [facility] [facility] ALBUMIN 4.5 3.6 - 5.1 g/dL 02/20/2025 6:51 AM EST [employer] [place] [employer] GLOBULIN 2.4 1.9 - 3.7 g/dL (calc) 02/20/2025 6:51 AM EST [facility] [facility] ALBUMIN/GLOBULI N RATIO 1.9 1.0 - 2.5 (calc) 02/20/2025 6:51 AM EST [employer] [facility] BILIRUBIN, TOTAL 0.6 0.2 - 1.2 mg/dL 02/20/2025 6:51 AM [employer] [facility] ALKALINE PHOSPHATASE 87 36 - 130 U/L 02/20/2025 6:51 AM EST [facility] [facility] AST 21 10 - 40 U/L 02/20/2025 6:51 AM EST [facility] [facility] ALT 40 9 - 46 U/L 02/20/2025 6:51 AM [employer] [facility] Blood Blood / Unknown 02/19/2025 1 2:01 PM EST 02/20/2025 4:01 AM EST [employer] [facility] - 02/20/2025 6:52 AM EST FASTING:UNKNOWN . Fasting reference interval . For someone without known diabetes, a glucose value between 100 and 125 mg/dL is consistent with prediabetes and should be confirmed with a follow-up test. . us Taty RYANP LAB - BLOOD DRAW Final Resul t [facility] [address] [place] [address], [employer] [address] [address] * REFERRAL SCANNED DOCUMENT (01/30/2025 3:00 AM EDT) Only the most recent of2 resultswithin the time period is included. 01/30/2025 3:00 AM EDT Jacek Velázquezourt FISCAL SERVICES DIRECTOR SCAN REFERRAL Final Res ult * OTHER ORDERS SCANNED DOCUMENT (01/07/2025 3:00 AM EDT) 01/07/2025 3:00 AM EDT Taty Brunorian FISCAL SERVICES DIRECTOR SCAN OTHER ORDERS Final Resu lt * ECG ROUTINE ECG W/LEAST 12 LDS TRCG ONLY W/O I&R (01/06/2025 10:53 AM EDT) Jacek Handleyt FISCAL SERVICES DIRECTOR ECG Final Res ult * (ABNORMAL) LIPID PANEL Routine (12/10/2024 12:14 PM EDT) CHOLESTEROL, TOTAL 170 <200 mg/dL 12/11/2024 8:50 AM EDT [facility] [facility] HDL CHOLESTEROL 51 > OR = 40 mg/dL 12/11/2024 8:50 AM EDT [employer] [facility] TRIGLYCERIDES 343(H) <150 mg/dL 12/11/2024 8:50 AM EDT [facility] [facility] LDL-CHOLESTEROL 78 mg/dL (calc) 12/11/2024 8:50 AM EDT [facility] [facility] CHOL/HDLC RATIO 3.3 <5.0 (calc) 12/11/2024 8:50 AM EDT [facility] [facility] NON-HDL CHOLESTEROL 119 <130 mg/dL (calc) 12/11/2024 8:50 AM EDT [facility] [facility] Blood Blood / Unknown 12/10/2024 1 2:14 PM EDT 12/11/2024 7:28 AM EDT Narrative [employer] [facility] - 12/11/2024 8:51 AM EDT FASTING:NO [...] LDL-C. Juan HECK et al. FORD. 2013;310(19): 4680-3655 (http://education.[employer]/faq/BCT181) For patients with diabetes plus 1 major ASCVD risk factor, treating to a non-HDL-C goal of <100 mg/dL (LDL-C of <70 mg/dL) is considered a therapeutic option. Jacek Marmolejo [facility] - BLOOD DRAW Final Re sult Performing Organization Address [facility] Co de Phone Number [facility] [address] [address], [employer] [address] [address] * HEPATITIS C AB W/RFLX HCV RNA, QT, RT PCR (04/04/2023 2:10 PM EST) HEPATITIS C ANTIBODY NON-REACT NAYELI NON-REACT NAYELI [employer] Comment: HCV antibody was non-reactive. There is no laboratory evidence of HCV infection. In most cases, no further action is required. However, if recent HCV exposure is suspected, a test for HCV RNA (test code 26168) is suggested. For additional information please refer to http://Splash[employer]/faq/CHV70r5 (This link is being provided for informational/ educational purposes only.) Blood Blood / Unknown 04/04/2023 2 :10 PM EST 04/04/2023 2:12 PM EST Narrative [employer] - 04/05/2023 2:35 PM EST NON FASTING FASTING:NO [facility] - BLOOD DRAW Edited R esult - Final Performing Organization Address [facility]/State/ZIP Co de Phone Number [employer] [address] [address], [employer] [facility] [address] [place] [address] from Last 3 Months or Most Recently Relevant to Health Maintenance Insurance [facility] MEDICAID DENTAL Care Teams Senior Animator Relationship Specialty Start Date End Date Jacek Marmolejo FNP [address] [place] [address] PCP - General Family Medicine, SPECIAL EDUCATION BUS DRIVER 04/03/23
--- OUTSIDE RECORDS SUMMARY | 2025-02-26 13:15 | XMS_ITS | Continuity of Care Document ---
Author Organization [place] - [facility], [facility] Address [address] [place] [address] Care Team Providers Care Impregnator Helper Name Role Phone FEI MEJIA Primary Care Provider Assessment Encounter Date Assessment Date Assessment LastModified by Organization Details LastModified Time 12/09/2024 12/09/2024 39 year old male presents [...] review the results. All questions were answered. [email or web address] Not available 12/09/2024 10:19:53 Plan of Treatment Reminders Order Date Submit Date Provider Last Modified By Organization Details Last Modified Time Details Appointments SURGERY 90 2024 12:30P Philip PATTON MD Not available Not available Not available Post Op 2024 10:15A M LON FRANCISCO Not available Not available Not available Establish ed 15 2024 09:45A M LON FRANCISCO Not available Not available Not available Post Op 2025 03:30P Philip PATTON MD Not available Not available [...] 025 [email or web address] Not available 12/09/2024 15:56:48 Surgeries None recorded. Imaging CT, sinuses, w/o contrast 2024 025 [email or web address] [facility] [place], [address], [place], [address], 12/18/2024 15:41:48 Medication Orders None recorded. Patient TargetsNo targets recorded. Patient InstructionsNo instructions recorded. Reason for Referral None Reported. Results Created Date Observation Date Name Description Value Unit Range Abnormal Flag Note LastModifiedBy Organization Detail LastModifiedTime 11/27/19 audio gram No observ ation record ed. BARCODE Not Available 2024 14:26:28 12/15/1912/13/2024 CT, sinus es, w/o contr ast No observ ation record ed. [email or web address] [facility] [place] [address] [address], [place], [address], 12/19/2024 16:47:04 12/27/19 andrei metry testi ng* No observ ation record ed. [email or web address] Not Available 2024 10:51:04 Result Notes None recorded. Problems Name Problem SNOMED Code Status Onset Date Resolution Date Notes Provider Name and Address Organization Details Recorded Time Breath smells unpleasant 69094252 Active 2024 MOY STEPHENSON PA-C [address] [address], [place], [address], [facility] - [facility] 10:48:21 Amygdalolit h 0019362 Active 2024 MOY STEPHENSON PA-C 100 [facility], [place], [address], [place] - [facility] [place] 5 10:48:28 Chronic sore throat 796648515 Active 2024 MOY STEPHENSON PA-C 100 [facility],[address], [place], [address], [place] - [facility] [place] 5 10:48:36 Chronic tonsillitis 90132303 Active 2024 MOY STEPHENSON PA-C 100 [facility], [place], [address], [place] - [facility] [place] 5 10:48:53 Chronic rhinitis 27887899 Active 2024 MOY STEPHENSON PA-C 100 [facility], [address], [place], [address], [place] - [facility] [place] 5 10:50:43 Mixed conductive AND sensorineur al hearing loss 60966019 Active 2024 Ramona leigh, [place] - [facility] [place] 5 15:38:24 Tinnitus of right ear 4341942342548 Active 2024 MAUDE LIVE PA-C 100 [facility], [place], [address], [place] - [facility] [place] 5 16:46:36 Conductive hearing loss of right ear with normal hearing on left side 8234597699 Active 2024 JOHN GERONIMO MD 100 [facility], [address], [place], [address], [place] - [facility] [place] 5 07:38:53 Otosclerosi s 70902866 Active 2024 JOHN GERONIMO MD 100 [facility],[address], [place], [address], [facility] - [facility] [place] 5 08:43:46 Sensorineur al hearing loss of right ear with normal hearing on left side 9388447059 Active 2024 SHANE CABRERA [address] [place],[address], [place], [address], [facility] - [facility] 11:31:37 Nasal congestion 81499073 Active 2024 MOY STEPHENSON PA-C 100 [facility], [place], [address], [facility] - [facility] 10:17:32 Perennial allergic rhinitis 882734494 Active 2024 TAYLOR BARBER 100 [facility], [place], [address], [facility] - [facility] 10:48:08 Deviated nasal septum 830435368 Active 2024 NUBIA PATTON MD 100 [facility], [place], [address], [facility] - [facility] 08:40:01 Essential hypertensio n 30236571 Active 2024 NUBIA PATTON MD 100 [facility], [address], [place], [address], [facility] - [facility] 08:41:13 Seasonal allergic rhinitis 066724117 Active 2024 NUBIA PATTON MD 100 [facility],[address], [place], [address], [facility] - [facility] 08:42:06 Allergic rhinitis 16654774 Active 2024 NUBIA PATTON MD 100 [facility], [address], [place], [address], [facility] - [facility] 08:42:06 Problem Notes None recorded. Procedures Surgical History Date Name Laterality Status Provider Name and Address Organization Details Recorded Time 12/27/19 Allergy Testing-Full completed TAYLOR BARBER [facility] [place],[address], [address], [facility] - [facility] 12/26/2024 12:11:11 08/25/20 25 FOL_DP completed MOY STEPHENSON PA-C 100 [facility],[address] [address], [place], [address], [facility] - [facility] 12/09/2024 10:19:39 11/27/19 25 Air only Audio - 74532 completed SHANE CABRERA 100 [facility],[address] [address], [place], [address], [place] - [facility] 11/26/2024 11:27:04 10/03/19 25 STAPEDECTOMY/STAPE DOTOMY W/ REESTABLISHMENT OF OSSICULAR CONTINUITY (SURG) completed Gino Wills [place] - [facility] 10/08/2024 10:06:00 07/12/19 25 Air & Bone Audio - 58614 completed Lala Musa [place] - [facility] 07/11/2024 16:06:51 07/12/19 25 Tymps & Reflexes - 07350 completed Lala Musa [place] - [facility] 07/11/2024 16:07:06 lithotripsy completed Joanne Oscar [place] - [facility] 01/30/2025 08:08:44 operative procedure on hand completed Joanne Oscar [place] - [facility] 01/30/2025 08:08:52 Imaging Results None recorded. Procedure Notes None recorded. Medical Equipment None Reported. Allergies Allergen ID Allergen Name Allergen Category Reaction Reaction Severity Criticality Documentation Date Start Date Code Code System Note Provider Name and Address Organization Details Recorded Time 095397 Product containin g penicilli n (product) medicatio n Not available Not available Not available 06/19/2024 90199 8001 SNOMED MOY STEPHENSON PA-C 100 [facility], [address], [place], [address], [facility] - [facility] 10:35:52 Medications Name Sig Start Date [...] Updated DateTime 12/09/2024 170.18 cm 31 kg/m2 12231.29 g Haley Muniz [place] - [facility] 12/09/2024 09:29:09 Social History None recorded. Functional Status None recorded. Mental Status None recorded. Family History Nothing Reported. Medical History Condition Response Migraines Y Hypertension Y Kidney Disease Y Past Encounters Encounter ID Performer Location Encounter Start Date Encounter Closed Date Diagnosis/Indication Diagnosis SNOMED-CT Code Diagnosis ICD10 Code Diagnosis IMO Codes Diagnosis Note [id number] JOHN GERONIMO MD [facility] [address] [address] 11/26/2024 10:46:31 11/26/2024 13:18:13 Otosclerosis 66944416 H80.91 5632071 Sensorineu ral hearing loss of right ear with normal hearing on left side 1156056944 H90.41 [id number] Right Ear:Normal hearing through 4K [place]. [id number] MOY STEPHENSON PA-C [facility] [address] [address] 12/09/2024 09:17:26 12/09/2024 09:52:24 Chronic rhinitis 95518318 J31.0 Amygdalolith 9304675 J35 .8 Nasal congestion 8093705 0 R09.81 15497 Health Concerns Section Related Observation LastModified by Organization Detai ls LastModified Time None Recorded Concern Status LastModified by Organization Details LastModified Time None Recorded Payers Encounter Date Sequence Insurance Name Policy Number Policy Aguilera Covered Member ID Aguilera Member ID Guarantor Name 12/09/2024 1 [place] [facility] Exit41 [id number] Mehdi [place] Notes Date Note Type Note Provider Name and Address Organization Details Recorded Time 12/09/2024 text/html ROS as noted in the [...] break through acid reflux. NUBIA ALONSO MD [address] [place] [address], [place], [address], [facility] - [facility] 12/09/2024 12:39:55
--- OUTSIDE RECORDS SUMMARY | 2025-02-26 13:15 | XMS_ITS | Continuity of Care Document ---
Author Organization [place] - [facility], [facility] Address [address] [place] [address] Care Team Providers Care Corn Chip Maker Name Role Phone FEI MEJIA Primary Care Provider Assessment Encounter Date Assessment Date Assessment LastModified by Organization Details LastModified Time 11/26/2024 11/26/2024 The right ear has healed well following laser stapedotomy with vein graft. All water and activity precautions are lifted. Audiometric testing today showed improvement in the hearing compared to preoperative audiogram. Patient may follow-up as needed [email or web address] Not available 11/26/2024 12:00:39 Plan of Treatment Reminders Order Date Submit [...] contr ast No observ ation record ed. [email or web address] [facility] [place] [facility] [address] [address], [place], [address], 12/19/2024 16:47:04 12/27/19 25 andrei metry testi ng* No observ ation record ed. [email or web address] Not Available 2024 10:51:04 Result Notes None recorded. Problems Name Problem SNOMED Code Status Onset Date Resolution Date Notes Provider Name and Address Organization Details Recorded Time Breath smells unpleasant 07908094 Active 2024 MOY STEPHENSON PA-C 100 [facility],[address] [address], [place], [address], [facility] - [facility] [place] 10:48:21 Amygdalolit h 2149900 Active 2024 MOY STEPHENSON PA-C [address] [place] [address],[address] [address], [place], [address], [facility] - [facility] [place] 10:48:28 Chronic sore throat 865048653 Active 2024 MOY STEPHENSON PA-C 100 [facility],[address] [address], [place], [address], [facility] - [facility] [place] 10:48:36 Chronic tonsillitis 23906990 Active 2024 MOY STEPHENSON PA-C [address] [address], [place], [address], [facility] - [facility] [place] 10:48:53 Chronic rhinitis 71097068 Active 2024 MOY STEPHENSON PA-C 100 [facility],[address] [address], [place], [address], [facility] - [facility] 10:50:43 Mixed conductive AND sensorineur al hearing loss 36644752 Active 2024 Ramona leigh [place] - [facility] 03/27/202 5 15:38:24 Tinnitus of right ear 5394842993451 Active 2024 MAUDE LIVE PA-C 100 [facility] [place], [place], [address], [facility] - [facility] [place] 5 16:46:36 Conductive hearing loss of right ear with normal hearing on left side 4789302512 Active 2024 JOHN GERONIMO MD 100 [facility],[address], [place], [address], [facility] - [facility] [place] 5 07:38:53 Otosclerosi s 90717101 Active 2024 JOHN GERONIMO MD 100 [facility],[address], [place], [address], [facility] - [facility] [place] 5 08:43:46 Sensorineur al hearing loss of right ear with normal hearing on left side 1716747417 Active 2024 SHANE CABRERA 100 [facility] [place],[address], [place], [address], [facility] - [facility] 5 11:31:37 Nasal congestion 25255679 Active 2024 MOY STEPHENSON PA-C 100 [facility] [place],[address], [place], [address], [facility] - [facility] [place] 5 10:17:32 Perennial allergic rhinitis 504509827 Active 2024 TAYLOR BARBER 100 [facility] [place], [place], [address], [facility] - [facility] [place] 5 10:48:08 Deviated nasal septum 322857697 Active 2024 NUBIA PATTON MD 100 [facility] [place],[address], [place], [address], [facility] - [facility] [place] 5 08:40:01 Essential hypertensio n 09813415 Active 2024 NUBIA PATTON MD [address] [address], [place], [address], [place] - [facility] 08:41:13 Seasonal allergic rhinitis 376771794 Active 2024 NUBIA PATTON MD [address], [address], [place] - [facility] 08:42:06 Allergic rhinitis 76618491 Active 2024 NUBIA PATTON MD [address] [address], [place], [address], [place] - [facility] 08:42:06 Problem Notes None recorded. Procedures Surgical History Date Name Laterality Status Provider Name and Address Organization Details Recorded Time 12/27/19 25 Allergy Testing-Full completed TAYLOR BARBER [address], [address], [facility] - [facility] 12/26/2024 12:11:11 12/10/19 25 FOL_DP completed MOY STEPHENSON PA-C [address], [address], [facility] - [facility] 12/09/2024 10:19:39 11/27/19 25 Air only Audio - 17870 completed SHANE CABRERA [address], [address], [facility] - [facility] 11/26/2024 11:27:04 10/03/19 25 STAPEDECTOMY/STAPE DOTOMY W/ REESTABLISHMENT OF OSSICULAR CONTINUITY (SURG) completed Gino Wills [place] - [facility] 10/08/2024 10:06:00 07/12/19 25 Air & Bone Audio - 26634 completed Lala Musa [place] - [facility] 07/11/2024 16:06:51 07/12/19 25 Tymps & Reflexes - 92001 completed Lala Musa [place] - [facility] 07/11/2024 16:07:06 lithotripsy completed Joanne Ocsar [place] - [facility] 01/30/2025 08:08:44 operative procedure on hand completed Joanne Oscar [facility] 01/30/2025 08:08:52 Imaging Results None recorded. Procedure Notes None recorded. Medical Equipment None Reported. Allergies Allergen ID Allergen Name Allergen Category Reaction Reaction Severity Criticality Documentation Date Start Date Code Code System Note Provider Name and Address Organization Details Recorded Time 747015 Product containin g penicilli n (product) medicatio n Not available Not available Not available 06/19/2024 34166 8001 SNOMED MOY STEPHENSON PA-C [address] [place] [address], [address] - [facility] 10:35:52 Medications Name Sig Start Date [...] Not Available Vitals Date Recorded Body height Provider Name an d Address Organization Details Last Updated DateTime 11/26/2024 170.18 [facility] 11/26/2024 10:55:35 Social History None recorded. Functional Status None recorded. Mental Status None recorded. Family History Nothing Reported. Medical History Condition Response Migraines Y Hypertension Y Kidney Disease Y Past Encounters Encounter ID Performer Location Encounter Start Date Encounter Closed Date Diagnosis/Indication Diagnosis SNOMED-CT Code Diagnosis ICD10 Code Diagnosis IMO Codes Diagnosis Note [id number] JOHN GERONIMO MD [facility] [address] [address] 11/26/2024 10:46:31 11/26/2024 13:18:13 Otosclerosis 19238945 H80.91 4420619 Sensorineu ral hearing loss of right ear with normal hearing on left side 1825429570 H90.41 91480712 Right Ear:Normal hearing through 4K Hz sloping to a mild HL. Health Concerns Section Related Observation LastModified by Organization Detai ls LastModified Time None Recorded Concern Status LastModified by Organization Details LastModified Time None Recorded Payers Encounter Date Sequence Insurance Name Policy Number Policy Aguilera Covered Member ID Aguilera Member ID Guarantor Name 11/26/2024 1 [place] [id number] Mehdi Lechuga Notes Date Note Type Note Provider Name and Address Organization Details Recorded Time 11/26/2024 text/html Patient is now about 8 weeks status post right-sided laser stapedotomy with vein graft. Patient has done well postoperatively and reports no pain or discharge. Patient reports that the hearing is improved. Today's visit carried out. With video Greenlandic lang interpreter JOHN GERONIMO MD [address] [place] [address], [address], [place] - [facility] 11/26/2024 12:00:55
--- OUTSIDE RECORDS SUMMARY | 2025-02-26 13:15 | XMS_ITS | Data Portability ---
Author Organization [place] - [facility], Allergy Address [address] [place] [address] Care Team Providers Care Roll Up Guider Operator Name Role Phone JACKIEFEI Primary Care Provider Assessment Encounter Date Assessment Date Assessment LastModified by Organization Details LastModified Time 10/09/2024 10/09/2024 The patient is doing well postoperatively. The remaining gelfoam was completely removed from the external auditory canal. I prescribed a 10 day course of ciprofloxacin drops for use BID and recommended the patient maintain dry ear precautions for another [address] Geronimo in 6-8 weeks for reevaluation with audiogram as previously scheduled. [email or web address] Not available 10/09/2024 14:34:33 11/26/2024 11/26/2024 The right ear has healed well following laser stapedotomy with vein graft. All water and activity precautions are lifted. Audiometric testing today showed improvement in the hearing compared to preoperative audiogram. Patient may follow-up as needed [email or web address] Not available 11/26/2024 12:00:39 12/09/2024 12/09/2024 40 [...] review the results. All questions were answered. [email or web address] Not available 12/09/2024 10:19:53 01/30/2025 01/30/2025 Extensive discussion with patient regarding the options of allergy medications, allergy immunotherapy or surgical intervention. This was all done with the historical society director. He understands that surgery can improve his structural issues with the deviated septum and turbinates but ultimately allergies will need to be under control. He has had persistent obstruction despite nasal steroids and saline nasal spray. There is significant septal deviation to the left side. No significant sinus disease requiring intervention. Suggest proceeding with septoplasty and turbinate reduction with continued medical management for underlying allergy. All questions answered with the historical society director [email or web address] Not available 01/30/2025 08:48:21 Plan of Treatment Reminders Order Date Submit [...] 025 [email or web address] Not available 12/09/2024 15:56:48 Surgeries septoplas ty and turbinate reduction (SURG) 2024 025 [email or web address] Not available 02/21/2025 15:43:[address], sinuses, w/o contrast 2024 025 [email or web address] [facility] [place], [address], [place], [address], 12/18/2024 15:41:48 Medication Orders azelastin e 137 mcg (0.1 %) nasal spray [address] [id number], [address] [place] [address], [address], 01/30/2025 08:49:17 fexofenad ine 180 mg tablet [address] [id number], [address] [place] [address], [id number], 01/30/2025 08:49:16 fluticaso ne propionat e 50 mcg/actua tion nasal spray,tennille pension [address] [id number], [address] [place], [address], 01/30/2025 08:49:16 ciproflox acin 0.3 % eye drops [address] [id number], [address] [place] [address], [address], 11/26/2024 10:55:53 Patient TargetsNo targets recorded. Patient Instructions Encounter Date Encounter Id Patient Instructions Last Modified By Organization Details Last Modified Time 01/30/2025 [id number] Informed Consent Surgical options and alternatives were discussed in detail today. Specifically, Informed Consent for Septoplasty The surgical risks, of septoplasty including, though not limited to, loss of smell and taste, bleeding, incomplete relief of nasal obstruction, atrophic rhinitis, tooth or lip numbness, infection and the risk of septal perforation with its resultant whistling were discussed. In addition, I explained that sometimes the nasal appearance can change and that chronic sinusitis can result. Informed Consent for Turbinate Reduction The surgical risks, of turbinate reduction, including, though not limited to, loss of smell and taste, bleeding, incomplete relief of nasal obstruction, atrophic rhinitis, tooth or lip numbness, infection and the risk of septal perforation with its resultant whistling were discussed. In addition, I explained that sometimes the nasal appearance can change and that chronic sinusitis can result. We also discussed the anesthetic risks. All questions were answered and patient/guardian fully understands the risks, benefits and alternatives as well as the limitation of surgery . This will be scheduled at a mutually convenient time in the near future. Preoperative and postoperative instructions were provided as well as a sheet outlining the potential risks of surgery. Patient/guardian will follow up post operatively as scheduled or earlier for intercurrent problems. [email or web address] Not available 01/30/2025 08:47:25 Reason for Referral None Reported. Results Created Date Observation Date Name Description Value Unit Range Abnormal Flag Note LastModifiedBy Organization Detail LastModifiedTime 11/27/19 audio gram No observ ation record ed. BARCODE Not Available 2024 14:26:28 12/15/19 25 12/13/2024 CT, sinus es, w/o contr ast No observ ation record ed. [email or web address] [facility] [place] [address] [address], [place], [address], 12/19/2024 16:47:04 12/27/19 andrei metry testi ng* No observ ation record ed. Not Available 2024 10:51:04 Result Notes None recorded. 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 Active 2024 MOY STEPHENSON PA-C [address] [place] [address], [place], [address], [facility] - [facility] 10:48:28 Chronic sore throat 237889829 Active 2024 MOY STEPHENSON PA-C [address] [place] [address], [address], [facility] - [facility] 10:48:36 Chronic tonsillitis 72123677 Active 2024 MOY STEPHENSON PA-C [address], [place], [address], [place] - [facility] 5 10:48:53 Chronic rhinitis 01875308 Active 2024 MOY STEPHENSON PA-C [address], [place], [address], [place] [facility] 5 10:50:43 Mixed conductive AND sensorineur al hearing loss 91093333 Active 2024 Ramona leigh, [place] - [facility] 5 15:38:24 Tinnitus of right ear 0119569735845 Active 2024 MAUDE LIVE PA-C [address], [place], [address], [place] - [facility] 5 16:46:36 Conductive hearing loss of right ear with normal hearing on left side 8050332357 Active 2024 JOHN GERONIMO MD [address], [place], [address], [facility] - [facility] 5 07:38:53 Otosclerosi s 76140260 Active 2024 JOHN GERONIMO MD [address], [place], [address], [place] [facility] 5 08:43:46 Sensorineur al hearing loss of right ear with normal hearing on left side 2355374254 Active 2024 SHANE CABRERA [address], [place], [address], [place] [facility] 5 11:31:37 Nasal congestion 01198354 Active 2024 MOY STEPHENSON PA-C [address], [place], [address], [place] [facility] 5 10:17:32 Perennial allergic rhinitis 012344954 Active 2024 TAYLOR BARBER [address] [facility],[address] [address], [place], [address], [facility] - [facility] 5 10:48:08 Deviated nasal septum 155123999 Active 2024 NUBIA PATTON MD [address] [address], [place], [address], [facility] - [facility] 5 08:40:01 Essential hypertensio n 44006870 Active 2024 NUBIA PATTON MD [address] [place] [address], [place], [address], [facility] 5 08:41:13 Seasonal allergic rhinitis 069530923 Active 2024 NUBIA PATTON MD [address] [place] [address], [place], [address], [facility] 5 08:42:06 Allergic rhinitis 36151288 Active 2024 NUBIA PATTON MD [address] [place] [address], [place], [address], [facility] 5 08:42:06 Problem Notes None recorded. Procedures Surgical History Date Name Laterality Status Provider Name and Address Organization Details Recorded Time 12/27/19 Allergy Testing-Full completed TAYLOR BARBER 100 [facility],[address], [address], [facility] - [facility] 12/26/2024 12:11:11 12/10/19 25 FOL_DP completed MOY STEPHENSON PA-C 100 [facility],[address], [address], [facility] - [facility] 12/09/2024 10:19:39 11/27/19 25 Air only Audio - 18333 completed SHANE CABRERA 100 [facility],[address], [address], [facility] - [facility] 11/26/2024 11:27:04 10/03/19 25 STAPEDECTOMY/STAPE DOTOMY W/ REESTABLISHMENT OF OSSICULAR CONTINUITY (SURG) completed Gino Wills [place] - [facility] 10/08/2024 10:06:00 07/12/19 25 Air & Bone Audio - 04461 completed Lala Musa [place] [facility] 07/11/2024 16:06:51 07/12/19 25 Tymps & Reflexes - 56137 completed Lala Musa [place] [facility] 07/11/2024 16:07:06 lithotripsy completed Joanne Oscar [place] [facility] 01/30/2025 08:08:44 operative procedure on hand completed Joanne Oscar [facility] 01/30/2025 08:08:52 Imaging Results None recorded. Procedure Notes None recorded. Medical Equipment None Reported. Allergies Allergen ID Allergen Name Allergen Category Reaction Reaction Severity Criticality Documentation Date Start Date Code Code System Note Provider Name and Address Organization Details Recorded Time 636141 Product containin g penicilli n (product) medicatio n Not available Not available Not available 06/19/2024 10947 8001 SNOMED MOY STEPHENSON PA-C [address] [place] [address], [address], [facility] - [facility] 10:35:52 Medications Name Sig Start Date [...] Updated DateTime 10/09/2024 170.18 cm 31 kg/m2 72237.29 g Ramona Paul [place] [facility] 10/09/2024 13:33:01 Date Recorded Body height Provider Name an d Address Organization Details Last Updated DateTime 11/26/2024 170.18 cm BLOSSOM HENDRIX [place] [facility] 11/26/2024 10:55:35 Date Recorded Body height Body mass index (BMI) Body weight Provider Name and Address Organization Details Last Updated DateTime 12/09/2024 170.18 cm 31 kg/m2 37979.29 g Haley Muniz [place] [facility] 12/09/2024 09:29:09 Date Recorded Oxygen saturation Oxygen saturation in Arterial blood by Pulse oximetry Heart rate Body mass index (BMI) Body weight Systolic And Diastolic Systolic And Diastolic Provider Name and Address Organization Details Last Updated DateTime 98 % 98 % 79 /min 31 kg/m2 06531.2 9 g 142/100 mm[Hg] 142/105 mm[Hg] HECTOR HERRERA, [facility] [address], [address], [facility] 13:14:20 Date Recorded Body height Provider Name an d Address Organization Details Last Updated DateTime 12/26/2024 170.18 cm SCAR BERENICE, [facility] [address], [address], [facility] 12/26/2024 10:37:11 Date Recorded Body height Body mass index (BMI) Body weight Provider Name and Address Organization Details Last Updated DateTime 01/30/2025 170.18 cm 31 kg/m2 01059.29 g Joanne Oscar [facility] 01/30/2025 08:07:28 Date Recorded Systolic And Diastolic Provider Name and Address Organization Details Last Updated DateTime 01/30/2025 150/100 mm[Hg] BLOSSOM HENDRIX [facility] 01/30/2025 08:35:48 Social History None recorded. Functional Status None recorded. Mental Status None recorded. Family History Nothing Reported. Medical History Condition Response Migraines Y Hypertension Y Kidney Disease Y Past Encounters Encounter ID Performer Location Encounter Start Date Encounter Closed Date Diagnosis/Indication Diagnosis SNOMED-CT Code Diagnosis ICD10 Code Diagnosis IMO Codes Diagnosis Note [id number] MOY STEPHENSON PA-C [facility] [address] [address] 06/19/2024 09:43:52 06/19/2024 10:45:02 Breath smells unpleasant 79748040 R19.6 Amygdalolith 9677771 J35 .8 Chronic sore throat 2754 99423 J31.2 Chronic tonsillitis 9097 9004 J35.01 Chronic rhinitis 6450123 6 J31.0 [id number] MAUDE LIVE PA-C [facility] [address] [address] 07/11/2024 15:30:44 07/11/2024 16:37:20 Mixed conductive AND sensorineural hearing loss 41134201 H90.8 Audiologic al evaluation results:Ri ght ear:Modera [...] sed):Absen t Tinnitus of right ear 48 93199145 108 H93.11 [id number] JOHN GERONIMO MD [facility] [address] [address] 09/17/2024 08:05:25 09/17/2024 08:46:21 Conductive hearing loss of right ear with normal hearing on left side 9402316123 H90.11 52270538 Otosclerosis 98123124 H8 0.91 9574822 [id number] MOY STEPHENSON PA-C [facility] [address] [address] 10/09/2024 13:25:14 10/09/2024 14:21:24 Conductive hearing loss of right ear with normal hearing on left side 1664708428 H90.11 84556855 Otosclerosis 93257490 H8 0.91 0246499 Postoperative visit 1836 49103 Z48.89 [id number] JOHN GERONIMO MD [facility] [address] [address] 11/26/2024 10:46:31 11/26/2024 13:18:13 Otosclerosis 11230064 H80.91 8423673 Sensorineu ral hearing loss of right ear with normal hearing on left side 5846579337 H90.41 09160614 Right Ear:Normal hearing through 4K [place]. [id number] MOY STEPHENSON PA-C [facility] [address] [address] 12/09/2024 09:17:26 12/09/2024 09:52:24 Chronic rhinitis 67105100 J31.0 Amygdalolith 7457531 J35 .8 Nasal congestion 4159920 0 R09.81 [id number] TAYLOR BARBER [facility] 100 [facility], [address] [place] [address] 12/26/2024 10:02:28 12/26/2024 13:16:43 Perennial allergic rhinitis 053129667 J30.89 156539 [id number] NUBIA MCKEON MD [facility] 100 [place] [address] 01/30/2025 08:04:52 01/30/2025 08:48:28 Perennial allergic rhinitis 999092299 J30.89 731046 Nasal congestion 7330972 0 R09.81 81523 Deviated nasal septum 12 0380337 J34.2 899436 Essential hypertension 96987571 I10 57351 Elevated today. Follow with PCP Health Concerns Section Related Observation LastModified by Organization Detai ls LastModified Time None Recorded Concern Status LastModified by Organization Details LastModified Time None Recorded Advance Directives Directive None Recorded Payers Insurance Date Sequence Insurance Name Policy Number Policy Aguilera Covered Member ID Aguilera Member ID Guarantor Name 02/25/2025 1 [place] [facility] [id number] [facility] Notes Date Note Type Note Provider Name and Address Organization Details Recorded Time 10/09/2024 text/html ROS as noted in the HPI 38 year old male presents s/p right laser stapedotomy with vein graft with Dr. Geronimo on 10/02. He is doing well postoperatively without concerns. NUBIA ALONSO MD [address] [address], [place], [address], [facility] - [facility] 10/09/2024 14:43:32 11/26/2024 text/html Patient is now about 8 weeks status post right-sided laser stapedotomy with vein graft. Patient has done well postoperatively and reports no pain or discharge. Patient reports that the hearing is improved. Today's visit carried out. With video [employer] historical society director JOHN GERONIMO MD 100 [facility],[address] [address], [place], [address], [place] - [facility] 11/26/2024 12:00:55 12/09/2024 text/html ROS as noted [...] through acid reflux. NUBIA ALONSO MD 100 [facility] [place],[address] [address], [place], [address], [place] [facility] 12/09/2024 12:39:55 01/30/2025 text/html Nasal congestionCT showed trace maxillary thickening with patent OMCs. Posterior septal spur to the left side, and allergy testing showed dust, cockroach and mold allergy NOSE=75 Persistent symptoms despite saline and nasal steroids. Notes left greater than right nasal congestion NUBIA ALONSO MD 100 [facility] [place], [place], [address], [place] [facility] 01/30/2025 08:49:23
--- OUTSIDE RECORDS SUMMARY | 2025-02-26 13:15 | XMS_ITS | Encounter Summary ---
Author Organization [facility] Address [address] [place] [address] Care Team Providers Care Waterproof Bag Sewer Name Role Phone Jacek Marmolejo PROJECT MANAGEMENT CONSULTANT Primary Care Provider [phone] Reason for Visit * Reason Onset Date Comments Test Results 12/13/2024 Encounter Details Date Type Department Care Team ([facility] st Contact Info) Description 12/13/2024 Results Follow-Up [facility] [address] [place] [address] Jacek Marmolejo FNP [address] [place] [address] Social History Tobacco Use Types Packs/Day Years [...] AM PST documented as of this encounter Nursing Notes * Jackson Gary RN - 01/07/2025 3:56 PM EDT Telephone call placed to Patient using in house manager of training and development (Norma (Macanese/Guyanese) ) to informof recent blood work results and providers recommendations below. Patient had EKG done on 01/06/25 and advised we will work on getting stress test scheduled. Patient verbalized understanding and agrees with plan. documented in this encounter Plan of Treatment Upcoming Encounters Date Type Department Care Team (Late st Contact Info) Description 03/19/2025 9:00 AM EST Office Visit [facility] [address] [place] [address] Kerry Martinez LPN [address] [place] [address] [place] [address] 03/19/2025 4:30 PM EST Office Visit [facility] [address] [place] [address] Deirdre Cochran, DMD [address] [place] [address] 08/04/2025 9:00 AM EDT Office Visit [facility] [address] [place] [address] Jass Dorado RHD [address] [place] [address] documented as of this encounter Goals Goal [...] Noted Time PHQ-9 Depression Total Score: 0 12/11/19 25 11:24 AM PDT A Depression follow-up plan has been documented for the patient 05/23/2024 10:39 AM PST PHQ-2 Depression Total Score: 0 12/11/19 25 11:24 AM PDT documented as of this encounter Care Teams Waterproof Bag Sewer Relationship Specialty Start Date End Date Jacek Marmolejo FNP [address] [place] [address] PCP - General Family Medicine, JEWEL WAXER 04/03/23 documented as of this encounter
--- OUTSIDE RECORDS SUMMARY | 2025-02-26 13:15 | XMS_ITS ---
Author Organization [facility] Address [address] [place] [address] Care Team Providers Care Teaseler Name Role Phone Jacek Marmolejo Primary Care Provider [phone] SA38 BP Program Status:Enrolled (Active) Start date:07/17/2024 Enrollment date:07/17/2024 Case Team Name Relationship Phone Kerry Martinez LPN(Responsible Staff) [phone] Continued Care and Services Coordination
--- OUTSIDE RECORDS SUMMARY | 2025-02-26 13:15 | XMS_ITS | Continuity of Care Document ---
Author Organization [place] - [facility], [facility] Address [address] [place] [address] Care Team Providers Care Director Of Community Education Name Role Phone FEI MEJIA Primary Care Provider Assessment Encounter Date Assessment Date Assessment LastModified by Organization Details LastModified Time 01/30/2025 01/30/2025 Extensive discussion with patient regarding the options of allergy medications, allergy immunotherapy or surgical intervention. This was all done with the golf course manager. He understands that surgery can improve his [...] underlying allergy. All questions answered with the golf course manager javier Not available 01/30/2025 08:48:21 Plan of [...] Not available Post Op 2025 03:30P Philip PTATON MD Not available Not available Not available Lab None recorded. Referral None recorded. Procedures None recorded. Surgeries septoplas ty and turbinate reduction (SURG) 2024 025 [email or web address] Not available 02/21/2025 15:43:09 Imaging None recorded. Medication Orders azelastin e 137 mcg (0.1 %) nasal spray 2024 [id number], [address] [place], [address], 01/30/2025 08:49:17 fexofenad ine 180 mg tablet 2024 [id number], [address] [place], [address], 01/30/2025 08:49:16 fluticaso ne propionat e 50 mcg/actua tion nasal spray,tennille pension 2024 [id number], [address] [place], [address], 01/30/2025 08:49:16 Patient TargetsNo targets recorded. Patient Instructions Encounter Date Encounter Id Patient Instructions Last Modified By Organization Details Last Modified Time 01/30/2025 [id number] Informed Consent Surgical options and alternatives were [...] 01/30/2025 08:47:25 Reason for Referral None Reported. Problems Name Problem SNOMED Code Status Onset Date Resolution Date Notes Provider Name and Address Organization Details Recorded Time Breath smells unpleasant 81779054 Active 2024 MOY STEPHENSON PA-C [address], [place], [address], [facility] - [facility] 10:48:21 Amygdalolit h 3864608 Active 2024 MOY STEPHENSON PA-C [address], [place], [address], [facility] - [facility] 10:48:28 Chronic sore throat 195767286 Active 2024 MOY STEPHENSON PA-C [address], [place], [address], [facility] - [facility] 10:48:36 Chronic tonsillitis 59277821 Active 2024 MOY STEPHENSON PA-C [address], [facility], [address], [facility] - [facility] 10:48:53 Chronic rhinitis 77085954 Active 2024 MOY STEPHENSON PA-C [address], [facility], [address], [facility] - [facility] 10:50:43 Mixed conductive AND sensorineur al hearing loss 91547695 Active 2024 Ramona leigh [place] - [facility] 15:38:24 Tinnitus of right ear 1493550155084 Active 2024 MAUDE LIVE PA-C [address], [place], [address], [facility] - [facility] 03/27/202 5 16:46:36 Conductive hearing loss of right ear with normal hearing on left side 8839027438 Active 2024 JOHN GERONIMO MD [address] [address], [place], [address], [facility] - [facility] 5 07:38:53 Otosclerosi s 64296966 Active 2024 JOHN GERONIMO MD [address] [address], [place], [address], [facility] - [facility] 5 08:43:46 Sensorineur al hearing loss of right ear with normal hearing on left side 7814921732 Active 2024 SHANE CABRERA [address] [address], [place], [address], [facility] - [facility] 5 11:31:37 Nasal congestion 84431575 Active 2024 MOY STEPHENSON PA-C [address] [address], [place], [address], [facility] - [facility] 5 10:17:32 Perennial allergic rhinitis 840472289 Active 2024 TAYLOR BARBER [address] [address], [place], [address], [facility] - [facility] 5 10:48:08 Deviated nasal septum 180204985 Active 2024 NUBIA PATTON MD [address] [address], [place], [address], [facility] - [facility] 5 08:40:01 Essential hypertensio n 62247297 Active 2024 NUBIA PATTON MD [address] [address], [place], [address], [facility] - [facility] 5 08:41:13 Seasonal allergic rhinitis 628101769 Active 2024 NUBIA PATTON MD [address] [address], [place], [address], [place] - [facility] 08:42:06 Allergic rhinitis 29498717 Active 2024 NUBIA PATTON MD [address] [address], [place], [address], [facility] - [facility] 08:42:06 Problem Notes None recorded. Procedures Surgical History Date Name Laterality Status Provider Name and Address Organization Details Recorded Time 12/27/19 Allergy Testing-Full completed SCAR NG RMA [address] [facility] [address], [place], [address], [facility] - [facility] 12/26/2024 12:11:11 12/10/19 FOL_DP completed MOY STEPHENSON PA-C [address] [facility],[address], [address], [facility] - [facility] 12/09/2024 10:19:39 11/27/19 25 Air only Audio - 24706 completed SHANE CABRERA [address] [address], [place], [address], [facility] - [facility] 11/26/2024 11:27:04 10/03/19 25 STAPEDECTOMY/STAPE DOTOMY W/ REESTABLISHMENT OF OSSICULAR CONTINUITY (SURG) completed Gino Wills [place] - [facility] 10/08/2024 10:06:00 07/12/19 25 Air & Bone Audio - 46159 completed Lala Musa [place] [facility] 07/11/2024 16:06:51 07/12/19 25 Tymps & Reflexes - 96020 completed Lala Musa [place] [facility] 07/11/2024 16:07:06 lithotripsy completed Joanne Oscar [facility] 01/30/2025 08:08:44 operative procedure on hand completed Joanne Oscar [facility] 01/30/2025 08:08:52 Imaging Results None recorded. Procedure Notes None recorded. Medical Equipment None Reported. Allergies Allergen ID Allergen Name Allergen Category Reaction Reaction Severity Criticality Documentation Date Start Date Code Code System Note Provider Name and Address Organization Details Recorded Time 774235 Product containin g penicilli n (product) medicatio n Not available Not available Not available 06/19/[address] STE[address]ENSON PA-C [address] [place] [address], [address], [facility] 10:35:52 Medications Name Sig Start Date Stop [...] Updated DateTime 01/30/2025 170.18 cm 31 kg/m2 18697.29 g Joanne Dayne [place] - [facility] 01/30/2025 08:07:28 Date Recorded Systolic And Diastolic Provider Name and Address Organization Details Last Updated DateTime 01/30/2025 150/100 mm[Hg] BLOSSOM HENDRIX [facility] 01/30/2025 08:35:48 Social History None recorded. Functional Status None recorded. Mental Status None recorded. Family History Nothing Reported. Medical History Condition Response Migraines Y Hypertension Y Kidney Disease Y Past Encounters Encounter ID Performer Location Encounter Start Date Encounter Closed Date Diagnosis/Indication Diagnosis SNOMED-CT Code Diagnosis ICD10 Code Diagnosis IMO Codes Diagnosis Note [id number] NUBIA MCKEON MD [facility] [address] [address] 01/30/2025 08:04:52 01/30/2025 08:48:28 Perennial allergic rhinitis 399179789 J30.89 151608 Nasal congestion 1577168 0 R09.81 29047 Deviated nasal septum 12 8574145 J34.2 660375 Essential hypertension 00628690 I10 40088 Elevated today. Follow with PCP Health Concerns Section Related Observation LastModified by Organization Detai ls LastModified Time None Recorded Concern Status LastModified by Organization Details LastModified Time None Recorded Payers Encounter Date Sequence Insurance Name Policy Number Policy Aguilera Covered Member ID Aguilera Member ID Guarantor Name 01/30/2025 1 [id number] Mehdi Benoitbenjaminkarina Notes Date Note Type Note Provider Name and Address Organization Details Recorded Time 01/30/2025 text/html Nasal congestionCT showed trace maxillary thickening with patent OMCs. Posterior septal spur to the left side, and allergy testing showed dust, cockroach and mold allergy NOSE=75 Persistent symptoms despite saline and nasal steroids. Notes left greater than right nasal congestion NUBIA ALONSO MD [address] [place] [address], [place], [address], [place] - [facility] 01/30/2025 08:49:23
== END 2025-02-26 11:29 | disposition home or self-care (01) ==
PROVIDERS: PCP Nurse Practitioner Family; Visit Provider Anesthesiology
DX: M48.26 Kissing spine, lumbar region (principal); M47.816 Spondylosis without myelopathy or radiculopathy, lumbar region; M51.369 Other intervertebral disc degeneration, lumbar region without mention of lumbar back pain or lower extremity pain; M46.1 Sacroiliitis, not elsewhere classified; M53.3 Sacrococcygeal disorders, not elsewhere classified
CPT/HCPCS: 99215

== ENCOUNTER → 2025-02-26 10:53 | Outpatient (BNVA) | payer MEDICAID, SELFPAY | PROVIDERS: PCP Nurse Practitioner Family; Visit Provider Anesthesiology | DX: M47.816 Spondylosis without myelopathy or radiculopathy, lumbar region (principal); M48.20 Kissing spine, site unspecified; M51.360 Other intervertebral disc degeneration, lumbar region with discogenic back pain only; M53.3 Sacrococcygeal disorders, not elsewhere classified | CPT/HCPCS: 99212 ==

== ENCOUNTER 2025-04-15 06:57 | Outpatient (REF) | payer MEDICAID, SELFPAY ==
--- NOTE | ~2025-04-15 | FL_ITS ---
EXAMINATION: FL GUIDANCE ONLY HISTORY: M47.816 - Spondylosis without myelopathy or radiculopathy, lumbar region COMPARISON: None available. TECHNIQUE: Fluoroscopy time: 39 seconds. Cumulative Dose: 8.80 mGy. DAP: 1881.50 mGycm2 Images: 13. FINDINGS: Fluoroscopic spot films of the lumbar spine demonstrate needles and contrast material in the regions of the bilateral L3-4, L4-5, and L5-S1 facet joints FL/FL guidance in treatment room IMPRESSION: Fluoroscopy during procedure. Please see procedure report for additional information. Electronically signed by: Tera Servin MD 04/15/2025 02:18 PM [facility]
--- OUTSIDE RECORDS SUMMARY | 2025-04-15 08:41 | XMS_ITS | Encounter Summary ---
Author Organization [facility] [place] [address] Care Team Providers Care Rn Transitional Care Name Role Phone Jaleel, Tylor HAY Primary Care Provider +1- [phone] Encounter Details Date Type Department Care Team (Late st Contact Info) Description 05/27/2024 Lab Requisition [facility] - Main Lab [address] [facility] [place] [address] Jose Angel Frazier PA [address] [place] [address] Calculus of kidney; Urinary tract [...] Result [facility] [address] [place] [address], documented in this encounter Visit Diagnoses Diagnosis Calculus of kidney Urinary tract infection, site not specified documented in this encounter Care Teams Rn Transitional Care Relationship Specialty Start Date End Date Jacek Marmolejo NP [address] [place] [address] PCP - General Nurse Practitioner 05/27/24 documented as of this encounter
--- OUTSIDE RECORDS SUMMARY | 2025-04-15 08:41 | XMS_ITS | Encounter Summary ---
Author Organization [facility] [place] [address] Care Team Providers Care Billing Analyst Name Role Phone Jaleel, Tylor ABLE BODIED TANKERMAN Primary Care Provider +1- [phone] Encounter Details Date Type Department Care Team (Late st Contact Info) Description 05/27/2024 Lab Requisition [facility] - Main Lab [address] [facility] [place] [address] Jose Angel Frazier, LON [address] [place] [address] Calculus of kidney Social History [...] AM EST) WBC 5.8 4.8 - 10.8 K/[facility] LAB HEMETOLOGY METHOD 05/27/2024 2:07 PM [facility] [...] 05/27/2024 2:07 PM [facility] RDW 12.4 11.0 - 15.0 [...] [facility] LAB BLOOD ORDERABLES Final Res ult [facility] ([facility] [[email or web address] [address] [place] [address], documented in this encounter Visit Diagnoses Diagnosis Calculus of kidney documented in this encounter Care Teams Billing Analyst Relationship Specialty Start Date End Date Jacek Marmolejo NP [address] [place] [address] PCP - General Nurse Practitioner 05/27/24 documented as of this encounter
--- OUTSIDE RECORDS SUMMARY | 2025-04-15 08:41 | XMS_ITS | Clinical Summary ---
Author Organization [facility] Address [address] [place] [address] Phone Care Team Providers Care Apprentice Stylist Name Role Phone Jacek Marmolejo NP Primary Care Provider +1- [phone] Allergies Active Allergy Reactions Criticality Noted Date [...] Orientation Straight 06/06/2024 9: 31 AM EST Last Filed Vital Signs Vital Sign Reading [...] topic Insurance MEDICAID - [place] Care Teams Apprentice Stylist Relationship Specialty Start Date End Date Jacek Marmolejo NP [address] [place] [address] PCP - General Nurse Practitioner 05/27/24
--- OUTSIDE RECORDS SUMMARY | 2025-04-15 08:41 | XMS_ITS | Continuity of Care Document ---
Author Organization [place] - [facility], [facility] Address [address] [place] [address] Care Team Providers Care Raschel Knitting Machine Operator Name Role Phone FEI MEJIA Primary Care Provider Assessment Encounter Date Assessment Date Assessment LastModified by Organization Details LastModified Time 03/24/2025 03/24/2025 39-year-old Grenadian-speaki ng male, s/p septoplasty with turbinate reduction performed 03/04/[address] Alonso, presents for his second postoperative evaluation. Surgical pathology is benign. Septum is midline and healing well without any crusting. Reassurance was provided. Continue medical management with fexofenadine, fluticasone, and azelastine, as well as saline irrigation, for underlying allergies. Patient will follow up with Dr. Alonso as scheduled. All questions were answered. [email or web address] Not available 03/24/2025 12:16:32 Plan of Treatment Reminders Order Date Submit Date Provider Last Modified By Organization Details Last Modified Time Details Appointments Post Op 026 03:30PM NUBIA PATTON MD Not available Not available Not available Lab None record ed. Referral None record ed. Procedures None record ed. Surgeries None record ed. Imaging None record ed. Medication Orders None record ed. Patient TargetsNo targets recorded. Patient InstructionsNo instructions recorded. Reason for Referral None Reported. Results Created Date Observation Date Name Description Value Unit Range Abnormal Flag Note LastModifiedBy Organization Detail LastModifiedTime 03/06/2003/04/2025 clini fred photo * No observ ation record ed. [email or web address] Not Available 02/16 14:50:17 03/18/20 25 03/04/2025 clini fred photo * No observ ation record ed. [email or web address] Not Available 05/2024 11:58:17 Result Notes None recorded. Problems Name Problem SNOMED Code Status Onset Date Resolution Date Notes Provider Name and Address Organization Details Recorded Time Breath smells unpleasant 54024442 Active 2024 MOY STEPHENSON PA-C [address], [place], [address], [facility] - [facility] [place] 10:48:21 Amygdalolit h 0791456 Active 2024 MOY STEPHENSON PA-C [address], [place], [address], [facility] - [facility] [place] 10:48:28 Chronic sore throat 291945422 Active 2024 MOY STEPHENSON PA-C [address], [place], [address], [facility] - [facility] [place] 10:48:36 Chronic tonsillitis 27623983 Active 2024 MOY STEPHENSON PA-C [address], [place], [address], [facility] - [facility] [place] 10:48:53 Chronic rhinitis 07440109 Active 2024 MOY STEPHENSON PA-C [address], [place], [address], [place] [facility] [place] 10:50:43 Mixed conductive AND sensorineur al hearing loss 33642359 Active 2024 Ramona leigh [place] - [facility] [place] 15:38:24 Tinnitus of right ear 7903801689206 Active 2024 MAUDE LIVE PA-C [address], [place], [address], [place] [facility] [place] 03/27/202 5 16:46:36 Conductive hearing loss of right ear with normal hearing on left side 1295415413 Active 2024 JOHN GERONIMO MD [address] [facility], [place], [address], [facility] - [facility] [place] 5 07:38:53 Otosclerosi s 27844314 Active 2024 JOHN GERONIMO MD [address] [facility], [place], [address], [facility] - [facility] [place] 5 08:43:46 Sensorineur al hearing loss of right ear with normal hearing on left side 1473959384 Active 2024 SHANE CABRERA [address] [facility],[address], [place], [address], [facility] - [facility] [place] 5 11:31:37 Nasal congestion 70214913 Active 2024 MOY STEPHENSON PA-C [address] [facility], [place], [address], [facility] - [facility] [place] 5 10:17:32 Perennial allergic rhinitis 137765927 Active 2024 TAYLOR BARBER [address] [facility],[address], [place], [address], [facility] - [facility] [place] 5 10:48:08 Deviated nasal septum 268035400 Active 2024 NUBIA PATTON MD [address] [facility],[address], [place], [address], [facility] - [facility] [place] 5 08:40:01 Essential hypertensio n 09543062 Active 2024 NUBIA PATTON MD [address] [facility],[address], [place], [address], [facility] - [facility] [place] 5 08:41:13 Seasonal allergic rhinitis 324587446 Active 2024 NUBIA PATTON MD [address] [facility],[address] [address], [place], [address], [place] [facility] 08:42:06 Allergic rhinitis 91768912 Active 2024 NUBIA PATTON MD [address] [address], [place], [address], [place] [facility] 08:42:06 Problem Notes None recorded. Procedures Surgical History Date Name Laterality Status Provider Name and Address Organization Details Recorded Time 03/24/20 25 NasalEndoscopy_DP completed LON FRANCISCO [address] [place] [address],[address], [address], [facility] - [facility] 03/24/2025 12:16:01 03/07/20 25 NasalEndoscopy_DP completed LON FRANCISCO [address] [facility],[address], [address], [facility] - [facility] 03/07/2025 17:23:41 03/04/20 25 nasal septoplasty with submucous resection of nasal septum completed NUBIA ALONSO MD [address] [facility],[address], [address], [facility] - [facility] 03/04/2025 13:58:00 03/04/20 25 SEPTOPLASTY AND TURBINATE REDUCTION (SURG) completed Gino Wills [facility] 03/05/2025 09:00:17 03/04/20 25 SEPTOPLASTY AND TURBINATE REDUCTION (SURG) completed NUBIA ALONSO MD [address] [facility],[address], [address], [facility] - [facility] 03/11/2025 17:43:01 12/27/19 25 Allergy Testing-Full completed TAYLOR BARBER [address] [facility],[address], [address], [facility] - [facility] 12/26/2024 12:11:11 12/10/19 25 FOL_DP completed MOY STEPHENSON PA-C [address] [facility],[address], [address], [facility] - [facility] 12/09/2024 10:19:39 11/27/19 25 Air only Audio - 76674 completed SHANE CABRERA [address] [address], [place], [address], [facility] - [facility] 11/26/2024 11:27:04 10/03/19 25 STAPEDECTOMY/STAPE DOTOMY W/ REESTABLISHMENT OF OSSICULAR CONTINUITY (SURG) completed Gino Wills [place] - [facility] 10/08/2024 10:06:00 07/12/19 25 Air & Bone Audio - 44202 completed Lala Musa [place] - [facility] 07/11/2024 16:06:51 07/12/19 25 Tymps & Reflexes - 99419 completed Lala Musa [place] - [facility] 07/11/2024 16:07:06 lithotripsy completed Joanne Oscar [place] - [facility] 01/30/2025 08:08:44 operative procedure on hand completed Joanne Oscar [place] [facility] 01/30/2025 08:08:52 Imaging Results None recorded. Procedure Notes None recorded. Medical Equipment None Reported. Allergies Allergen ID Allergen Name Allergen Category Reaction Reaction Severity Criticality Documentation Date Start Date Code Code System Note Provider Name and Address Organization Details Recorded Time 715971 Product containin g penicilli n (product) medicatio n Not available Not available Not available 06/19/2024 20733 8001 SNOMED MOY STEPHENSON PA-C [address], [address], [facility] - [facility] 5 10:35:52 526554 penicilli n G Not available hives Not available Not available 03/04/20252022 7980 RxNorm Not Available raymond - External Data Service - prod 00:17:28 Medications Name Sig Start Date Stop Date Status Note LastModified by Organization Details LastModified Time atorvastati n 20 mg tablet TAKE 1 TABLET BY MOUTH EVERYDAY AT BEDTIME active Not Available Not Available No t Available erythromyci n 500 mg tablet TAKE 1 TABLET BY MOUTH EVERY 8 HOURS 03/27 /2025 completed Not Available Not Available Not Available [...] Not Available gabapentin 300 mg capsule TAKE 1 [...] completed Not Available Not Available Not Available tobramycin 0.3 %-dexametha sone 0.1 % eye drops,suspe nsion INSTILL 1 DROP INTO BOTH EYES FOUR TIMES A DAY FOR THREE WEEKS, THEN STOP active Not Available Not Available No t [...] completed Not Available Not Available Not Available Neilmed Sinus Rinse Complete with packet Take 1 packet twice a day by nasal route. 2024 active Not Available Not Available Not Avai lable Vitals Date Recorded Body height Body mass index (BMI) Body weight Heart rate Systolic And Diastolic Provider Name and Address Organization Details Last Updated DateTime 03/24/2025 170.18 cm 30.9 kg/m2 27126.7 g 78 /min 120/72 mm[Hg] Ramona Funezmanfred [place] - [facility] 03/24/2025 09:21:26 Social History None recorded. Functional Status None recorded. Mental Status None recorded. Family History Nothing Reported. Medical History Condition Response Migraines Y Hypertension Y Kidney Disease Y Past Encounters Encounter ID Performer Location Encounter Start Date Encounter Closed Date Diagnosis/Indication Diagnosis SNOMED-CT Code Diagnosis ICD10 Code Diagnosis IMO Codes Diagnosis Note [id number] LON FRANCISCO [facility] of [address] [address] 03/07/2025 09:45:43 03/07/2025 11:04:01 Deviated nasal septum 997884968 J34.2 [id number] LON FRANCISCO [facility] of [address] [address] 03/24/2025 08:46:58 03/24/2025 09:49:13 Deviated nasal septum 745645803 J34.2 048747 Perennial allergic rhinitis 892630399 J30.89 624195 Nasal congestion 6539598 0 R09.81 69819 Health Concerns Section Related Observation LastModified by Organization Detai ls LastModified Time None Recorded Concern Status LastModified by Organization Details LastModified Time None Recorded Payers Encounter Date Sequence Insurance Name Policy Number Policy Aguilera Covered Member ID Aguilera Member ID Guarantor Name 03/24/2025 1 [place] [id number] [facility] Notes Date Note Type Note Provider Name and Address Organization Details Recorded Time 03/24/2025 text/html ROS as noted in the HPI 39-year-old Grenadian-speaking male, s/p septoplasty with turbinate reduction performed 03/04/[address] Alonso, presents for his second postoperative evaluation. Patient is doing much better following surgery. Nasal breathing has significantly improved with his current allergy regimen and saline irrigation. NUBIA ALONSO MD [address] [place] [address], [address], [place] [facility] 03/24/2025 12:30:40
--- OUTSIDE RECORDS SUMMARY | 2025-04-15 08:41 | XMS_ITS | Clinical Summary ---
Author Organization [employer] Address [address] [facility] [address] [place] [address] Care Team Providers Care Cnp Name Role Phone Unavailable Primary Care Provider [...] 3-dose series) 10/31/2003 COVID-19 Vaccine (1 - 2024-2 6 season) 2024 Influenza Vaccine (#1) 2024 Zoster [...]
--- OUTSIDE RECORDS SUMMARY | 2025-04-15 08:41 | XMS_ITS | Continuity of Care Document ---
Author Organization [place] - [facility], [facility] Address [address] [place] [address] Care Team Providers Care Pot Washer Name Role Phone FEI MEJIA Primary Care Provider Assessment Encounter Date Assessment Date Assessment LastModified by Organization Details LastModified Time 01/30/2025 01/30/2025 Extensive discussion with patient regarding the options of allergy medications, allergy immunotherapy or surgical intervention. This was all done with the hand rigger. He understands that surgery can improve his [...] underlying allergy. All questions answered with the hand rigger [email or web address] Not available 01/30/2025 08:48:21 Plan of Treatment Reminders Order Date Submit Date Provider Last Modified By Organization Details Last Modified Time Details Appointments Post Op 2025 03:30P M NUBIA PATTON MD Not available Not available Not available Lab None recorded. Referral None recorded. Procedures None recorded. Surgeries septoplas ty and turbinate reduction (SURG) 2024 025 [email or web address] Not available 02/21/2025 15:43:09 Imaging None recorded. Medication Orders azelastin e 137 mcg (0.1 %) nasal spray 2024 025 [facility]Pharmacy #[id number], [address] [place], [address], 01/30/2025 08:49:17 fexofenad ine 180 mg tablet 2024 025 [facility]/Pharmacy #[id number], [address] [place], [address], 01/30/2025 08:49:16 fluticaso ne propionat e 50 mcg/actua tion nasal spray,tennille pension 2024 025 [facility]/Pharmacy #[id number], [address] [place], [address], 01/30/2025 08:49:16 Patient TargetsNo targets recorded. Patient Instructions Encounter Date Encounter Id Patient Instructions Last Modified By Organization Details Last Modified Time 01/30/2025 [id number] Informed Consent Surgical options and alternatives were [...] photo * No observ ation record ed. [email or web address] Not Available 02/16 14:50:17 03/18/20 25 03/04/2025 clini fred photo * No observ ation record ed. [email or web address] Not Available 05/2024 11:58:17 Result Notes None recorded. Problems Name Problem SNOMED Code Status Onset Date Resolution Date Notes Provider Name and Address Organization Details Recorded Time Breath smells unpleasant 31518958 Active 2024 MOY STEPHENSON PA-C [address], [place], [address], [place] - [facility] [place] 10:48:21 Amygdalolit h 5631880 Active 2024 MOY STEPHENSON PA-C [address], [place], [address], [place] [facility] [place] 10:48:28 Chronic sore throat 968575940 Active 2024 MOY STEPHENSON PA-C [address], [place], [address], [facility] - [facility] [place] 10:48:36 Chronic tonsillitis 16043756 Active 2024 MOY STEPHENSON PA-C [address], [place], [address], [place] [facility] [place] 10:48:53 Chronic rhinitis 47923466 Active 2024 MOY STEPHENSON PA-C [address], [place], [address], [place] [facility] [place] 10:50:43 Mixed conductive AND sensorineur al hearing loss 17621144 Active 2024 Ramona leigh [place] - [facility] [place] 15:38:24 Tinnitus of right ear 7219937157093 Active 2024 MAUDE LIVE PA-C [address], [place], [address], [place] - [facility] [place] 5 16:46:36 Conductive hearing loss of right ear with normal hearing on left side 5560374356 Active 2024 JOHN [facility]ERONIMO MD [address] [facility] [place], [place], [address], [place] [facility] [place] 5 07:38:53 Otosclerosi s 79833881 Active 2024 JOHN GERONIMO MD [address] [facility] [place], [place], [address], [place] [facility] [place] 5 08:43:46 Sensorineur al hearing loss of right ear with normal hearing on left side 0135660749 Active 2024 SHANE CABRERA [address] [facility] [place], [place], [address], [place] [facility] [place] 5 11:31:37 Nasal congestion 34536963 Active 2024 MOY STEPHENSON PA-C [address] [facility],[address], [place], [address], [place] [facility] [place] 5 10:17:32 Perennial allergic rhinitis 925023816 Active 2024 TAYLOR BARBER [address] [facility] [place], [place], [address], [place] [facility] [place] 5 10:48:08 Deviated nasal septum 487307205 Active 2024 NUBIA PATTON MD [address] [facility] [address], [place], [address], [place] [facility] [place] 5 08:40:01 Essential hypertensio n 59288425 Active 2024 NUBIA PATTON MD [address] [facility] [address], [place], [address], [place] [facility] [place] 5 08:41:13 Seasonal allergic rhinitis 616108886 Active 2024 NUBIA PATTON MD [address] [address], [place], [address], [facility] 5 08:42:06 Allergic rhinitis 21527043 Active 2024 NUBIA PATTON MD [address], [address], [facility] - [facility] 08:42:06 Problem Notes None recorded. Procedures Surgical History Date Name Laterality Status Provider Name and Address Organization Details Recorded Time 03/24/20 25 NasalEndoscopy_DP completed LON FRANCISCO [address] [facility],[address], [address], [facility] 03/24/2025 12:16:01 03/07/20 25 NasalEndoscopy_DP completed LON FRANCISCO [address] [facility],[address], [address], [facility] 03/07/2025 17:23:41 03/04/20 25 nasal septoplasty with submucous resection of nasal septum completed NUBIA ALONSO MD [address] [facility],[address], [address], [facility] 03/04/2025 13:58:00 03/04/20 25 SEPTOPLASTY AND TURBINATE REDUCTION (SURG) completed Gino Wills [facility] 03/05/2025 09:00:17 03/04/20 25 SEPTOPLASTY AND TURBINATE REDUCTION (SURG) completed NUBIA ALONSO MD [address] [facility],[address], [address], [facility] 03/11/2025 17:43:01 12/27/19 25 Allergy Testing-Full completed TAYLRO BARBER [address] [facility],[address], [address], [facility] 12/26/2024 12:11:11 12/10/19 25 FOL_DP completed MOY STEPHENSON PA-C [address] [facility],[address] [address], [place], [address], [facility] - [facility] 12/09/2024 10:19:39 11/27/19 25 Air only Audio - 11566 completed SHANE CABRERA [address] [facility],[address] [address], [place], [address], [facility] - [facility] 11/26/2024 11:27:04 10/03/19 25 STAPEDECTOMY/STAPE DOTOMY W/ REESTABLISHMENT OF OSSICULAR CONTINUITY (SURG) completed Gino Wills [place] - [facility] 10/08/2024 10:06:00 07/12/19 25 Air & Bone Audio - 28499 completed Lala Musa [place] [facility] 07/11/2024 16:06:51 07/12/19 25 Tymps & Reflexes - 28461 completed Lala Musa [place] [facility] 07/11/2024 16:07:06 lithotripsy completed Joanne Oscar [place] [facility] 01/30/2025 08:08:44 operative procedure on hand completed Joanne Oscar [facility] 01/30/2025 08:08:52 Imaging Results None recorded. Procedure Notes None recorded. Medical Equipment None Reported. Allergies Allergen ID Allergen Name Allergen Category Reaction Reaction Severity Criticality Documentation Date Start Date Code Code System Note Provider Name and Address Organization Details Recorded Time 719388 Product containin g penicilli n (product) medicatio n Not available Not available Not available 06/19/2024 56093 8001 SNOMED MOY STEPHENSON PA-C [address] [facility], [place], [address], [facility] - [facility] 10:35:52 239636 penicilli n G Not available hives Not [...] Updated DateTime 01/30/2025 170.18 cm 31 kg/m2 20452.29 g Joanne Oscar [place] - [facility] 01/30/2025 08:07:28 Date Recorded Systolic And Diastolic Provider Name and Address Organization Details Last Updated DateTime 01/30/2025 150/100 mm[Hg] BLOSSOM HENDRIX [place] - [facility] 01/30/2025 08:35:48 Social History None recorded. Functional Status None recorded. Mental Status None recorded. Family History Nothing Reported. Medical History Condition Response Migraines Y Hypertension Y Kidney Disease Y Past Encounters Encounter ID Performer Location Encounter Start Date Encounter Closed Date Diagnosis/Indication Diagnosis SNOMED-CT Code Diagnosis ICD10 Code Diagnosis IMO Codes Diagnosis Note [id number] NUBIA MCKEON MD [facility] of [address] [address] 01/30/2025 08:04:52 01/30/2025 08:48:28 Perennial allergic rhinitis 315173296 J30.89 869459 Nasal congestion 5679444 0 R09.81 89843 Deviated nasal septum 12 8191648 J34.2 337729 Essential hypertension 08401521 I10 08464 Elevated today. Follow with PCP Health Concerns Section Related Observation LastModified by Organization Detai ls LastModified Time None Recorded Concern Status LastModified by Organization Details LastModified Time None Recorded Payers Encounter Date Sequence Insurance Name Policy Number Policy Aguilera Covered Member ID Aguilera Member ID Guarantor Name 01/30/2025 1 [place] [facility] [id number] Mehdi Gr Notes Date Note Type Note Provider Name and Address Organization Details Recorded Time 01/30/2025 text/html Nasal congestionCT showed trace maxillary thickening with patent OMCs. Posterior septal spur to the left side, and allergy testing showed dust, cockroach and mold allergy NOSE=75 Persistent symptoms despite saline and nasal steroids. Notes left greater than right nasal congestion NUBIA ALONSO MD [address] [place] [address], [address], [place] [facility] 01/30/2025 08:49:23
--- OUTSIDE RECORDS SUMMARY | 2025-04-15 08:41 | XMS_ITS | Data Portability ---
Author Organization [place] - [facility], Allergy Address [address] [address] Care Team Providers Care Pond Tender Name Role Phone JACKIEFEI Primary Care Provider [...] review the results. All questions were answered. [email or web address] Not available 12/09/2024 10:19:53 01/30/2025 01/30/2025 Extensive discussion with patient regarding the options of allergy medications, allergy immunotherapy or surgical intervention. This was all done with the interpreter for the deaf. He understands that surgery can improve his [...] underlying allergy. All questions answered with the interpreter for the deaf [email or web address] Not available 01/30/2025 08:48:21 03/07/2025 03/07/2025 39-year-old [place]egalese-speaki ng male, s/p septoplasty with turbinate reduction performed 03/04/[address] Alonso, presents with his sister for his first postoperative evaluation. Surgical pathology is benign. Patient is doing fairly well following surgery. Dailey splints were removed. Nasal cavities appear to be healing well. He may begin saline sinus irrigation at least twice daily starting today. Patient should avoid heavy lifting, strenuous physical activity, nose blowing, and activities that can increase intranasal pressure such as forceful sneezing, swimming, or diving for 1-2 weeks after surgery to reduce the risk of bleeding and other complications. Patient can return to school or work with light duties after a week. Otherwise, follow up as scheduled. All questions were answered. Not available 03/07/2025 17:23:09 03/24/2025 03/24/2025 39-year-old [place]alese-spe[place] ng male, s/p septoplasty with turbinate reduction performed 03/04/[address] Alonso, presents for his second postoperative evaluation. Surgical pathology is benign. Septum is midline and healing well without any crusting. Reassurance was provided. Continue medical management with fexofenadine, fluticasone, and azelastine, as well as saline irrigation, for underlying allergies. Patient will follow up with Dr. Alonso as scheduled. All questions were answered. Not available 03/24/2025 12:16:32 Plan of Treatment [...] septoplas ty and turbinate reduction (SURG) 2024 [email or web address] Not available 02/21/2025 15:43:[address], sinuses, w/o contrast 2024 [email or web address] [facility] [place], [address], [place], [address], 12/18/2024 15:41:48 Medication Orders Neilmed Sinus Rinse Complete with packet 2024 [id number], [address] [place] [address], [address], 03/07/2025 10:54:47 azelastin e 137 mcg (0.1 %) nasal spray 2024 [id number], [address] [place] [address], [place], [address], 01/30/2025 08:49:17 fexofenad ine 180 mg tablet 2024 [id number], [address] [place] [address], [address], 01/30/2025 08:49:16 fluticaso ne propionat e 50 mcg/actua tion nasal spray,tennille pension 2024 [id number], [address] [place] [address], [address], 01/30/2025 08:49:16 Patient TargetsNo targets recorded. Patient Instructions Encounter Date Encounter Id Patient Instructions Last Modified By Organization Details Last Modified Time 01/30/2025 [id number] Informed Consent Surgical options and alternatives were [...] No observ ation record ed. [facility] [place] [address] [address], [place], [address], 12/19/2024 16:47:04 12/27/19 andrei metry testi ng* No observ ation record ed. [email or web address] Not Available 2024 10:51:04 03/06/20 25 03/04/2025 clini fred photo * No observ ation record ed. Not Available 02/16 14:50:17 03/18/20 25 03/04/2025 clini fred photo * No observ ation record ed. [email or web address] Not Available 05/2024 11:58:17 Result Notes None recorded. Problems Name Problem SNOMED Code Status Onset Date Resolution Date Notes Provider Name and Address Organization Details Recorded Time Breath smells unpleasant 95193273 Active 2024 MOY STEPHENSON PA-C [address] [place] [address], [address] [place] [address] - [facility] 10:48:21 Amygdalolit h 2098806 Active 2024 MOY STEPHENSON PA-C [address], [place], [address], [place] - [facility] 10:48:28 Chronic sore throat 533193964 Active 2024 MOY STEPHENSON PA-C [address], [place], [address], [facility] - [facility] 10:48:36 Chronic tonsillitis 02453572 Active 2024 MOY STEPEHNSON PA-C [address], [place], [address], [facility] - [facility] 10:48:53 Chronic rhinitis 59913944 Active 2024 MOY STEPHENSON PA-C [address], [place], [address], [facility] - [facility] 10:50:43 Mixed conductive AND sensorineur al hearing loss 00529445 Active 2024 Ramona leigh [place] - [facility] 15:38:24 Tinnitus of right ear 2556848524768 Active 2024 MAUDE LIVE PA-C [address] [facility] [address], [place], [address], [facility] - [facility] 16:46:36 Conductive hearing loss of right ear with normal hearing on left side 1898321552 Active 2024 JOHN GERONIMO MD [address], [place], [address], [facility] - [facility] 07:38:53 Otosclerosi s 08340946 Active 2024 JOHN GERONIMO MD [address], [place], [address], [place] - [facility] 5 08:43:46 Sensorineur al hearing loss of right ear with normal hearing on left side 3905341518 Active 2024 SHANE CABRERA [address] [facility] [address], [place], [address], [place] - [facility] 5 11:31:37 Nasal congestion 33427059 Active 2024 MOY STEPHENSON PA-C 100 [facility],[address], [place], [address], [place] - [facility] 5 10:17:32 Perennial allergic rhinitis 881627610 Active 2024 TAYLOR BARBER [address] [facility],[address], [place], [address], [place] - [facility] 5 10:48:08 Deviated nasal septum 070937467 Active 2024 NUBIA PATTON MD 100 [facility], [place], [address], [facility] - [facility] 08:40:01 Essential hypertensio n 41559901 Active 2024 NUBIA PATTON MD [address] [facility], [place], [address], [facility] - [facility] 5 08:41:13 Seasonal allergic rhinitis 145509678 Active 2024 NUBIA PATTON MD [address] [facility] [address], [place], [address], [place] - [facility] 5 08:42:06 Allergic rhinitis 79860470 Active 2024 NUBAI PATTON MD [address] [facility] [address], [place], [address], [place] - [facility] 08:42:06 Problem Notes None recorded. Procedures Surgical History Date Name Laterality Status Provider Name and Address Organization Details Recorded Time 03/24/20 25 NasalEndoscopy_DP completed LON FRANCISCO 100 [facility],[address], [address], [facility] 03/24/2025 12:16:01 03/07/20 25 NasalEndoscopy_DP completed LON FRANCISCO 100 [facility],[address], [address], [facility] 03/07/2025 17:23:41 03/04/20 25 nasal septoplasty with submucous resection of nasal septum completed NUBIA ALONSO MD 100 [facility],[address], [address], [facility] 03/04/2025 13:58:00 03/04/20 25 SEPTOPLASTY AND TURBINATE REDUCTION (SURG) completed Gino Wills [facility] 03/05/2025 09:00:17 03/04/20 25 SEPTOPLASTY AND TURBINATE REDUCTION (SURG) completed NUBIA ALONSO MD 100 [facility],[address], [address], [facility] 03/11/2025 17:43:01 12/27/19 25 Allergy Testing-Full completed TAYLOR BARBER 100 [facility],[address], [address], [facility] 12/26/2024 12:11:11 12/10/19 25 FOL_DP completed MOY STEPHENSON PA-C 100 [facility],[address], [address], [facility] 12/09/2024 10:19:39 11/27/19 25 Air only Audio - 59245 completed SHANE CABRERA [address] [facility],[address] [place] [address], [address], [facility] 11/26/2024 11:27:04 10/03/19 25 STAPEDECTOMY/STAPE DOTOMY W/ REESTABLISHMENT OF OSSICULAR CONTINUITY (SURG) completed Gino Wills [place] - [facility] 10/08/2024 10:06:00 07/12/19 25 Air & Bone Audio - 67965 completed Lala Musa [place] - [facility] 07/11/2024 16:06:51 07/12/19 25 Tymps & Reflexes - 64949 completed Lala Muas [facility] 07/11/2024 16:07:06 lithotripsy completed Joanne Oscar [place] - [facility] 01/30/2025 08:08:44 operative procedure on hand completed Joanne Oscar [facility] 01/30/2025 08:08:52 Imaging Results None recorded. Procedure Notes None recorded. Medical Equipment None Reported. Allergies Allergen ID Allergen Name Allergen Category Reaction Reaction Severity Criticality Documentation Date Start Date Code Code System Note Provider Name and Address Organization Details Recorded Time 408221 Product containin g penicilli n (product) medicatio n Not available Not available Not available 06/19/2024 47311 8001 SNOMED MOY STEPHENSON PA-C [address] [place] [address], [address] [place] [address] - [facility] 5 10:35:52 725079 penicilli n G Not available hives Not available Not available 03/04/20252022 7980 RxNorm Not Available blanco - External Data Service - prod 00:17:28 [...] Updated DateTime 12/09/2024 170.18 cm 31 kg/m2 48613.29 g Haley Muniz [place] - [facility] 12/09/2024 09:29:09 Date Recorded Oxygen saturation Heart rate Body mass index (BMI) Body weight Systolic And Diastolic Systolic And Diastolic Provider Name and Address Organization Details Last Updated DateTime 98 % 79 /min 31 kg/m2 88112.2 9 g 142/100 mm[Hg] 142/105 mm[Hg] [address] [place], [address], [facility] 13:14:20 Date Recorded Body height Provider Name an d Address Organization Details Last Updated DateTime 12/26/2024 170.18 cm SCAR NG, [facility] [address], [address], [facility] 12/26/2024 10:37:11 Date Recorded Body height Body mass index (BMI) Body weight Provider Name and Address Organization Details Last Updated DateTime 01/30/2025 170.18 cm 31 kg/m2 63279.29 g Joanne Oscar [place] - [facility] 01/30/2025 08:07:28 Date Recorded Systolic And Diastolic Provider Name and Address Organization Details Last Updated DateTime 01/30/2025 150/100 mm[Hg] BLOSSOM HENDRIX [place] - [facility] 01/30/2025 08:35:48 Date Recorded Body height Body mass index (BMI) Body weight Provider Name and Address Organization Details Last Updated DateTime 03/07/2025 170.18 cm 31 kg/m2 55747.29 g Ramona Paul [facility] 03/07/2025 10:03:18 Date Recorded Body height Body mass index (BMI) Body weight Heart rate Systolic And Diastolic Provider Name and Address Organization Details Last Updated DateTime 03/24/2025 170.18 cm 30.9 kg/m2 50019.7 g 78 /min 120/72 mm[Hg] Ramona Paul [place] - [facility] 03/24/2025 09:21:26 Social History None recorded. Functional Status None recorded. Mental Status None recorded. Family History Nothing Reported. Medical History Condition Response Migraines Y Hypertension Y Kidney Disease Y Past Encounters Encounter ID Performer Location Encounter Start Date Encounter Closed Date Diagnosis/Indication Diagnosis SNOMED-CT Code Diagnosis ICD10 Code Diagnosis IMO Codes Diagnosis Note [id number] MOY STEPHENSON PA-C [facility] [address] [place] [address] 06/19/2024 09:43:52 06/19/2024 10:45:02 Breath smells unpleasant 40003402 R19.6 Amygdalolith 9986633 J35 .8 Chronic sore throat 2754 17097 J31.2 Chronic tonsillitis 9097 9004 J35.01 Chronic rhinitis 9891346 6 J31.0 [id number] MAUDE LIVE PA-C [facility] [address] [address] 07/11/2024 15:30:44 07/11/2024 16:37:20 Mixed conductive AND sensorineural hearing loss 63364245 H90.8 Audiologic al evaluation results:Ri ght ear:Modera [...] sed):Absen t Tinnitus of right ear 48 19974908 108 H93.11 [id number] JOHN GERONIMO MD [facility] [address] [address] 09/17/2024 08:05:25 09/17/2024 08:46:21 Conductive hearing loss of right ear with normal hearing on left side 5492271709 H90.11 46255504 Otosclerosis 75907226 H8 0.91 6369574 [id number] MOY STEPHENSON PA-C [facility] [address] [address] 10/09/2024 13:25:14 10/09/2024 14:21:24 Conductive hearing loss of right ear with normal hearing on left side 5746516551 H90.11 19963783 Otosclerosis 47844914 H8 0.91 5362741 Postoperative visit 1836 35840 Z48.89 [id number] JOHN GERONIMO MD [facility] [address] [address] 11/26/2024 10:46:31 11/26/2024 13:18:13 Otosclerosis 67557866 H80.91 1840276 Sensorineu ral hearing loss of right ear with normal hearing on left side 8951261755 H90.41 23490450 Right Ear:Normal hearing through 4K Hz [place]. [id number] MOY STEPHENSON PA-C [facility] [address] [address] 12/09/2024 09:17:26 12/09/2024 09:52:24 Chronic rhinitis 89915396 J31.0 Amygdalolith 8706548 J35 .8 Nasal congestion 2180355 0 R09.81 [id number] SCAR NG [facility] [address] [place] [address] [address] 12/26/2024 10:02:28 12/26/2024 13:16:43 Perennial allergic rhinitis 932483570 J30.89 [id number] NUBIA MCKEON MD [facility] [address] [address] 01/30/2025 08:04:52 01/30/2025 08:48:28 Perennial allergic rhinitis 614200555 J30.89 930143 Nasal congestion 0108262 0 R09.81 37089 Deviated nasal septum 12 9647782 J34.2 495575 Essential hypertension 27478532 I10 27426 Elevated today. Follow with PCP [id number] LON FRANCISCO [facility] [address] [address] 03/07/2025 09:45:43 03/07/2025 11:04:01 Deviated nasal septum 714989050 J34.2 [id number] [id number] LON FRANCISCO [facility] [address] [address] 03/24/2025 08:46:58 03/24/2025 09:49:13 Deviated nasal septum 615649460 J34.2 287813 Perennial allergic rhinitis 348858929 J30.89 852907 Nasal congestion 4508430 0 R09.81 67099 Health Concerns Section Related Observation LastModified by Organization Detai ls LastModified Time None Recorded Concern Status LastModified by Organization Details LastModified Time None Recorded Advance Directives Directive None Recorded Payers Insurance Date Sequence Insurance Name Policy Number Policy Aguilera Covered Member ID Aguilera Member ID Guarantor Name 03/24/2025 1 [place] [facility] Mehdi Lechuga [id number] Mehdi Lechuga Notes Date Note Type Note Provider Name and Address Organization Details Recorded Time 12/09/2024 text/html ROS as noted in the [facility] 39 year old male presents for follow [...] break through acid reflux. NUBIA ALONSO MD [address] [place] [address],[address], [address], [place] - [facility] 12/09/2024 12:39:55 01/30/2025 text/html Nasal congestionCT showed trace maxillary thickening with patent OMCs. Posterior septal spur to the left side, and allergy testing showed dust, cockroach and mold allergy NOSE=75 Persistent symptoms despite saline and nasal steroids. Notes left greater than right nasal congestion NUBIA ALONSO MD [address] [place] [address],[address] [address], [place], [address], [place] - [facility] 01/30/2025 08:49:23 03/07/2025 text/html ROS as noted in the HPI 39-year-old Senegalese-speaking male, s/p septoplasty with turbinate reduction performed 03/04/[address] Alonso, presents with his sister for his first postoperative evaluation. Patient continues to endorse a mild headache and nasal congestion. He states acetaminophen and ibuprofen have not been helping. Patient notes a low-grade fever of 37.5 C yesterday. He has been using saline gel to help maintain nasal moisture. Denies vision changes, purulent nasal discharge, and epistaxis. NUBIA ALONSO MD 100 [facility],[address] [address], [place], [address], [facility] 03/10/2025 09:22:49 03/24/2025 text/html ROS as noted in the HPI 39-year-old Senegalese-speaking male, s/p septoplasty with turbinate reduction performed 03/04/[address] Alonso, presents for his second postoperative evaluation. Patient is doing much better following surgery. Nasal breathing has significantly improved with his current allergy regimen and saline irrigation. NUBIA ALONSO MD 100 [facility], [place], [address], [facility] 03/24/2025 12:30:40
--- OUTSIDE RECORDS SUMMARY | 2025-04-15 08:41 | XMS_ITS | Continuity of Care Document ---
Author Organization [place] [facility], [facility] Address [address] [place] [address] Care Team Providers Care Event Specialist Product Demonstrator Name Role Phone FEI MEJIA Primary Care Provider Assessment Encounter Date Assessment Date Assessment LastModified by Organization Details LastModified Time 03/07/2025 03/07/2025 39-year-old [place]spe[place] male, s/p septoplasty with turbinate reduction [...] up as scheduled. All questions were answered. [email or web address] Not available 03/07/2025 17:23:09 Plan of Treatment Reminders Order Date Submit Date Provider Last Modified By Organization Details Last Modified Time Details Appointments Post Op 2025 03:30P M NUBIA PATTON MD Not available Not available Not available Lab None recorded. Referral None recorded. Procedures None recorded. Surgeries None recorded. Imaging None recorded. Medication Orders Neilmed Sinus Rinse Complete with packet 2024 025 [facility] #[id number], [address] [place], [address], 03/07/2025 10:54:47 Patient TargetsNo targets recorded. Patient InstructionsNo instructions recorded. Reason for Referral None Reported. Results Created Date Observation Date Name Description Value Unit Range Abnormal Flag Note LastModifiedBy Organization Detail LastModifiedTime 03/06/2003/04/2025 clini fred photo * No observ ation record ed. [email or web address] Not Available 02/16 14:50:17 03/18/2003/04/2025 clini fred photo * No observ ation record ed. [email or web address] Not Available 05/2024 11:58:17 Result Notes None recorded. Problems Name Problem SNOMED Code Status Onset Date Resolution Date Notes Provider Name and Address Organization Details Recorded Time Breath smells unpleasant 36313893 Active 2024 MOY STEPHENSON PA-C [address] [address], [facility] [place] [address], [facility] 10:48:21 Amygdalolit h 8173545 Active 2024 MOY STEPHENSON PA-C [address] [place] [address], [facility] [place], [address], [facility] - [facility] [place] 10:48:28 Chronic sore throat 460047646 Active 2024 MOY STEPHENSON PA-C [address] [place] [address], [facility] [place], [address], [facility] - [facility] 10:48:36 Chronic tonsillitis 79434620 Active 2024 MOY STEPHENSON PA-C [address] [address], [facility] [place], [address], [facility] - [facility] 10:48:53 Chronic rhinitis 35086556 Active 2024 MOY STEPHENSON PA-C [address] [address], [facility] [place], [address], [facility] - [facility] 03/05/202 5 10:50:43 Mixed conductive AND sensorineur al hearing loss 96169296 Active 2024 Ramona leigh [place] - [facility] [place] 5 15:38:24 Tinnitus of right ear 5736341693400 Active 2024 MAUDE LIVE PA-C [address], [place], [address], [place] [facility] 5 16:46:36 Conductive hearing loss of right ear with normal hearing on left side 4636527573 Active 2024 JOHN GERONIMO MD [address], [place], [address], [facility] - [facility] 5 07:38:53 Otosclerosi s 82196119 Active 2024 JOHN GERONIMO MD [address], [place], [address], [facility] - [facility] 5 08:43:46 Sensorineur al hearing loss of right ear with normal hearing on left side 8342084797 Active 2024 SHANE CABRERA [address], [place], [address], [facility] - [facility] [place] 11:31:37 Nasal congestion 42556152 Active 2024 MOY STEPHENSON PA-C [address], [place], [address], [facility] - [facility] [place] 5 10:17:32 Perennial allergic rhinitis 738385960 Active 2024 TAYLOR BARBER [address], [place], [address], [facility] - [facility] 5 10:48:08 Deviated nasal septum 566164149 Active 2024 NUBIA PATTON MD [address], [place], [address], [place] - [facility] 5 08:40:01 Essential hypertensio n 47581056 Active 2024 NUBIA PATTON MD [address] [facility] [address], [place], [address], [facility] - [facility] 5 08:41:13 Seasonal allergic rhinitis 316832151 Active 2024 NUBIA PATTON MD [address] [address], [place], [address], [facility] - [facility] 5 08:42:06 Allergic rhinitis 39868451 Active 2024 NUBIA PATTON MD [address] [facility],[address] [address], [place], [address], [facility] - [facility] 08:42:06 Problem Notes None recorded. Procedures Surgical History Date Name Laterality Status Provider Name and Address Organization Details Recorded Time 03/24/20 25 NasalEndoscopy_DP completed LON FRANCISCO [address] [facility],[address], [address], [facility] - [facility] 03/24/2025 12:16:01 03/07/20 25 NasalEndoscopy_DP completed LON FRANCISCO [address] [facility],[address], [address], [place] - [facility] 03/07/2025 17:23:41 03/04/20 25 nasal septoplasty with submucous resection of nasal septum completed NUBIA ALONSO MD [address] [facility],[address], [address], [facility] - [facility] 03/04/2025 13:58:00 03/04/20 25 SEPTOPLASTY AND TURBINATE REDUCTION (SURG) completed Gino Wills [place] - [facility] 03/05/2025 09:00:17 03/04/20 25 SEPTOPLASTY AND TURBINATE REDUCTION (SURG) completed NUBIA ALONSO MD [address] [facility],[address], [address], [place] - [facility] 03/11/2025 17:43:01 12/27/19 25 Allergy Testing-Full completed TAYLOR BARBER [address] [facility],[address], [address], [facility] - [facility] 12/26/2024 12:11:11 12/10/19 25 FOL_DP completed MOY STEPHENSON PA-C [address] [facility],[address], [address], [facility] - [facility] 12/09/2024 10:19:39 11/27/19 25 Air only Audio - 15353 completed SHANE CABRERA [address] [facility],[address], [address], [facility] - [facility] 11/26/2024 11:27:04 10/03/19 25 STAPEDECTOMY/STAPE DOTOMY W/ REESTABLISHMENT OF OSSICULAR CONTINUITY (SURG) completed Gino Wills [place] [facility] 10/08/2024 10:06:00 07/12/19 25 Air & Bone Audio - 16134 completed Lala Musa [place] [facility] 07/11/2024 16:06:51 07/12/19 25 Tymps & Reflexes - 72267 completed Lala Musa [place] [facility] 07/11/2024 16:07:06 lithotripsy completed Joanne Oscar [facility] 01/30/2025 08:08:44 operative procedure on hand completed Joanne Oscar [facility] 01/30/2025 08:08:52 Imaging Results None recorded. Procedure Notes None recorded. Medical Equipment None Reported. Allergies Allergen ID Allergen Name Allergen Category Reaction Reaction Severity Criticality Documentation Date Start Date Code Code System Note Provider Name and Address Organization Details Recorded Time 235238 Product containin g penicilli n (product) medicatio n Not available Not available Not available 06/19/2024 37977 8001 SNOMED MOY STEPHENSON PA-C [address] [facility], [place], [address], [facility] - [facility] 10:35:52 670249 penicilli n G Not available hives Not available Not available 03/04/20252022 7980 RxNorm Not Available [place] - External Data [employer] - prod 00:17:28 [...] Updated DateTime 03/07/2025 170.18 cm 31 kg/m2 85743.29 g Ramona Paul [place] [facility] 03/07/2025 10:03:18 Social History None recorded. Functional Status None recorded. Mental Status None recorded. Family History Nothing Reported. Medical History Condition Response Migraines Y Hypertension Y Kidney Disease Y Past Encounters Encounter ID Performer Location Encounter Start Date Encounter Closed Date Diagnosis/Indication Diagnosis SNOMED-CT Code Diagnosis ICD10 Code Diagnosis IMO Codes Diagnosis Note [id number] LON FRANCISCO [facility] of [address] [address] 03/07/2025 09:45:43 03/07/2025 11:04:01 Deviated nasal septum 572007475 J34.2 [id number] Health Concerns Section Related Observation LastModified by Organization Detai ls LastModified Time None Recorded Concern Status LastModified by Organization Details LastModified Time None Recorded Payers Encounter Date Sequence Insurance Name Policy Number Policy Aguilera Covered Member ID Aguilera Member ID Guarantor Name 03/07/2025 1 [place] [id number] [facility] Notes Date Note Type Note Provider Name and Address Organization Details Recorded Time 03/07/2025 text/html ROS as noted in the HPI 39-year-old Yakut-speaking male, s/p septoplasty with turbinate reduction performed [...] nasal discharge, and epistaxis. NUBIA ALONSO MD [address] [place] [address], [place], [address], [facility] - [facility] 03/10/2025 09:22:49
== END 2025-04-15 06:58 | disposition home or self-care (01) ==
LOC: CF 06:57
PROVIDERS: Visit Provider Anesthesiology
DX: M47.816 Spondylosis without myelopathy or radiculopathy, lumbar region (principal); M48.20 Kissing spine, site unspecified; M51.369 Other intervertebral disc degeneration, lumbar region without mention of lumbar back pain or lower extremity pain; M46.1 Sacroiliitis, not elsewhere classified; M53.3 Sacrococcygeal disorders, not elsewhere classified
CPT/HCPCS: 64493; 64494; J2003; J2795; Q9967

== ENCOUNTER 2025-04-15 10:05 | Outpatient (AMB) | payer MEDICAID, SELFPAY ==
[2025-04-15 10:16] VITALS: BP 149/92; PULSE 86; RESP 16; O2SAT 97; BMI 30.3
--- NOTE | 2025-04-15 10:16 | A.OFFVIS_ITS ---
Vital Signs 04/15/25 10:16 04/15/25 10:39 Height 5 ft 8 in Weight 199 lb BMI 30.3 BP 149/92 H 142/98 H Blood Pressure Location Lt brachial Lt brachial Position Sitting Sitting Respiration 16 16 Pulse 86 89 Pulse Source Pulse Oximeter Pulse Oximeter Pulse Oximetry (%) 97 97 Oxygen Delivery Method Room Air Room Air Intake Visit Reasons: Bilateral Diagnostic L3-L4-DR L5 MBB Allergies Penicillins Allergy (Verified 02/26/25 11:02) rash REPLACED BY [facility] Surgical History History of right nephrectomy Social History Are you a primary critical care nurse to a significant other at home: No Do you presently have visiting nurse or other home services: No Patient Tobacco Use Status: Never used Tobacco Current occupational status: employed Current occupation: construction, left hand dominant Physical Exam Vital Signs: Last Vital Signs Pulse 89 04/15/25 10:39 Resp 16 04/15/25 10:39 BP 142/98 H 04/15/25 10:39 Pulse Ox 97 04/15/25 10:39 Oxygen Delivery Method Room Air 04/15/25 10:39 BMI result Body Mass Index 30.3 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 - Kissing spine, site unspecified Category: Medical (2) Spondylosis of lumbar region without myelopathy or radiculopathy: Code(s): M47.816 - Spondylosis without myelopathy or radiculopathy, lumbar region Category: Medical (3) Disc degeneration, lumbar: Code(s): M51.36 - Other intervertebral disc degeneration, lumbar region Category: Medical (4) Sacroiliitis: Code(s): M46.1 - Sacroiliitis, not elsewhere classified Category: Medical (5) Sacroiliac joint dysfunction of both sides: Code(s): M53.3 - Sacrococcygeal disorders, not elsewhere classified Category: Medical Plan Diagnostic medial branch block L3,L4 dorsal ramus L5 bilateral.? ? ?Informed consent was explained to the patient. All questions were explained and? answered.? The patient was taken inside the operating room where he was positioned prone on the operating table. Time-out was performed delineating correct site, side, the nature of the procedure, patient's allergy, . All operating room staff was participating in OR time-out procedure. ? ? The lower back was prepped with ChloraPrep and draped with sterile utility towels.? C-arm was brought over the operating field and sq picture of L4-, L5 vertebra and S1 AREA were delineated on the screen.? Point of interest were delineated as confluence of superior articular process of L4 and L5 vertebra bilaterally with corresponding transverse processes as well as confluence of the sacral alae bilaterally with superior articular process of S1.? The projection of the point of interest to the skin were injected with the small amount of local anesthetic lidocaine 2% mixed with ropivacaine 0.5% 1-1 approximately 1 cc.? After that 22 gauge 3.5 inch spinal needle was driven sequentially to the points of interest in tunnel vision fashion. After needles gently contacted the bone at the point of interests the needle was injected with small amount of the contrast.? The injection of the contrast did not demonstrate any intravascular or intrathecal spread of the contrast.? After that injection of the? ropivacaine 0.5%-1cc was performed at each needle location.?After that the needles were removed and Bandaids were applied. Orders: Orders FL guidance in treatment room Today M47.816 - Spondylosis without myelopathy or radiculopathy, lumbar region Coding Level of Care Code Procedure Only Diagnoses Baastrups syndrome M48.20 Spondylosis of lumbar region without myelopathy or radiculopathy M47.816 Disc degeneration, lumbar M51.36 Sacroiliitis M46.1 Sacroiliac joint dysfunction of both sides M53.3
[2025-04-15 10:39] VITALS: BP 142/98; PULSE 89; RESP 16; O2SAT 97
== END 2025-04-15 10:39 | disposition home or self-care (01) ==
LOC: HO.PMCPRC 10:05
PROVIDERS: PCP Nurse Practitioner Family; Visit Provider Anesthesiology
DX: M48.20 Kissing spine, site unspecified (principal); M47.816 Spondylosis without myelopathy or radiculopathy, lumbar region; M51.369 Other intervertebral disc degeneration, lumbar region without mention of lumbar back pain or lower extremity pain; M46.1 Sacroiliitis, not elsewhere classified; M53.3 Sacrococcygeal disorders, not elsewhere classified
CPT/HCPCS: 64493; 64494